=== PATIENT | male | born 1950 | race African-American/Black ===

== ENCOUNTER 2020-08-07 12:33 | Inpatient (IN) ==
--- NOTE | 2020-08-07 14:11 | Emergency Department Note ---
Impression & Plan Large bowel obstruction, Colonic mass, Hypokalemia, BEN (acute kidney injury) ED Provider Note NAME: HEATHER VANCE AGE: 70 SEX: M : 1950 ARRIVES VIA: Walk-In INFORMANT: [Patient] ED PROVIDER(S): [Simeon Diaz MD] CHIEF COMPLAINT: Constipation HISTORY OF PRESENT ILLNESS: The patient is a 70-year-old male who has had about 6 days of what he thinks may be constipation. He feels bloated. He states that he tried some fiber initially and then some MiraLAX. 2 days ago, he tried an enema. The patient really has not had a bowel movement in the last 2 to 3 days. He feels quite bloated and has some pressure in the pelvis. He has no appetite but there has been no nausea or vomiting. No fever. The pressure in the pelvis is mild in severity. The patient feels he may have become constipated from the Cipro. He was on this medication 2 weeks ago for UTI, his urinary burning has cleared. Of note, the patient was told by his family doctor's office that he does have some blood in his urine. He has an upcoming appointment next week with urology for this issue. REVIEW OF SYSTEMS: See HPI for pertinent positives and negatives. A total of ten systems were reviewed and were otherwise negative. PMHx/PSHx: See Below SOCIAL HISTORY: See Below. PHYSICAL EXAM: GENERAL: Patient is in no acute distress. HEENT: No acute trauma, normocephalic atraumatic, mucous membranes moist, no nasal congestion, no scleral icterus. NECK: No stridor, no adenopathy, no meningismus, trachea is midline. LUNGS: Clear to auscultation bilaterally, no wheeze, no rhonchi, breath sounds equal. HEART: Mildly tachycardic, subtle systolic murmur, regular rhythm. ABDOMEN: Soft, there is some abdominal distention with some tympany to percussion, no real abdominal discomfort to palpation, bowel sounds positive, no hernias, no peritonitis. EXTREMITIES: No cyanosis or edema, full range of motion of all the joints without pain or difficulty, no signs for acute trauma. NEUROLOGIC: Oriented x 3, no acute motor or sensory deficits, no focal weakness. SKIN: No rash, no jaundice, no diaphoresis. DIFFERENTIAL DIAGNOSIS: Appendicitis, infections, diverticulitis, UTI, obstruction, mesenteric ischemia, urinary retention, aortic pathology, inflammatory bowel disease, renal colic, PUD, pancreatitis, biliary pathology, hernia, volvulus, constipation, as well as other pathologies. EMERGENCY DEPARTMENT COURSE/PROCEDURES: ECG: Indication was tachycardia. ECG shows a sinus tachycardia with a rate of 103. LVH is present. There is an old inferior infarct. There is poor R wave progression. No ST elevation, no PVCs. The QTc is 445. Continuous Cardiac Monitoring: An order was placed for continuous cardiac monitoring. The monitor shows a rate of 88 with normal sinus rhythm. Critical Care Note: I have personally spent greater than 38 minutes of critical care time in the direct management of this patient. This includes bedside care, interpretation of diagnostic studies, and testing, discussion with consultants, patient, and family members, and other required patient management activities. This 38 minutes is in excess of all separately billable procedures. MEDICAL DECISION MAKING: There is a mild leukocytosis, this could be consistent with infection. There was no worrisome anemia. Platelet count slightly high at 411. Renal panel testing showed evidence for acute kidney injury with a creatinine of 3.46. Pot assium was critically low at 2.3. No worrisome liver enzyme elevation. No evidence for pancreatitis. Urinalysis showed a small amount of blood, no evidence for infection. Abdominal and pelvis CT demonstrates a large bowel obstruction from a colonic mass. There were concerns for metastasis. On exam, the patient's abdomen seemed distended. There was tympany to percussion. He was not toxic, he was not febrile. He was not in significant pain. The patient received IV saline for hydration. He was given IV potassium. I spoke to the patient about his findings. I did consult general surgery. The patient is to be hospitalized. Patient may require a diverting colostomy. There was talk about doing a colonic stent as a temporizing measure. He will require a work-up here in the hospital. He appears to have a malignancy as the cause for his bowel obstruction. I did speak to case management. The on-call hospitalist was consulted. Past Med/Surg History Medical History Chronic gout Hyperlipidemia Hypertension Family History Father , 79 Prostate cancer Mother , 72 Ovarian cancer Brother Cancer, Onset Age: 63 Social History Smoking Status: Never smoker Hx Alcohol Use: Yes Hx Substance Use: No Preferred Language: Bhutanese Communication Ability: Effective Dramatic Director Required: No Beliefs That Will Affect Care: None Current Living Situation: Spouse Current Living Situation Comment: 3 level house Feels Safe at Home: Yes Assistive Devices: None Allergies Allergies Allergy/AdvReac Type Severity Reaction Status Date / Time No Known Allergies Allergy Verified 08/07/20 16:13 [id number] Allergy Unknown Unknown Uncoded 08/07/20 16:13 Home Meds Home Medications Medication Instructions Recorded Confirmed allopurinol 100 mg PO DAILY 08/07/20 08/07/20 calcium carbonate [Tums] 0 mg PO UD PRN 08/07/20 08/07/20 simvastatin 40 mg PO DAILY 08/07/20 08/07/20 telmisartan-hydrochlorothiazid 1 tab PO CQWK 08/07/20 08/07/20 Results & Data (ED) Vital Signs Vital Signs - 24 hr 08/07/20 12:40 08/07/20 13:57 08/07/20 14:26 Temperature 36.7 C Temperature Source Oral Pulse Rate 92 H Pulse Rate [Right Finger] 105 H Respiratory Rate 18 20 Respiratory Effort / Characteristics Non-Labored Spontaneous Non-Labored Spontaneous Respiratory Depth Normal Normal Respiratory Pattern Regular Blood Pressure 124/83 Blood Pressure [Right Arm] 119/91 Blood Pressure Mean 96 Blood Pressure Mean [Right Arm] 100 Pulse Oximetry 96 100 96 Oxygen Delivery Method Room Air Room Air Room Air Sepsis Recent Fever Within 48 Hours No Sepsis New/Unexplained Change in Mental Status No Sepsis Action Taken by Nursing No Action Required 08/07/20 15:33 08/07/20 16:15 Temperature Temperature Source Pulse Rate Pulse Rate [Right Finger] 92 H 98 H Respiratory Rate 22 19 Respiratory Effort / Characteristics Respiratory Depth Respiratory Pattern Blood Pressure Blood Pressure [Right Arm] 130/84 127/76 Blood Pressure Mean Blood Pressure Mean [Right Arm] 99 93 Pulse Oximetry 99 18 L Oxygen Delivery Method Sepsis Recent Fever Within 48 Hours Sepsis New/Unexplained Change in Mental Status Sepsis Action Taken by [facility] Medications Current Medication List: was personally reviewed by me Laboratory Data Attestation: I reviewed the patient's lab results. Result diagrams: 08/07/20 14:24 08/07/20 14:24 Lab Results 08/07/20 08/07/20 08/07/20 Range/Units 14:24 14:24 14:30 WBC 11.79 H (4.8-10.8) K/uL RBC 4.86 (4.7-6.1) M/uL Hgb 13.6 L (14.0-18.0) g/dL Hct 40.5 L (42-52) % MCV 83.3 (80-100) fL MCH 28.0 (25-34) pg MCHC 33.6 (32-36) g/dL RDW Std Deviation 42.2 (36.4-46.3) fL RDW Coeff of Maximilian 14.3 (11.5-14.5) % Plt Count 411 H (130-400) K/uL MPV 8.9 (7.4-10.4) fL Immature Gran % (Auto) 0.2 % Neut % (Auto) 87.0 % Lymph % (Auto) 9.3 % [place] % (Auto) 3.3 % Eos % (Auto) 0.1 % Baso % (Auto) 0.1 % Neut # (Auto) 10.26 H (1.4-6.5) K/uL Lymph # (Auto) 1.10 L (1.2-3.4) K/uL [place] # (Auto) 0.39 (0.11-0.59) K/uL Eos # (Auto) 0.01 (0-0.5) K/uL Baso # (Auto) 0.01 (0-0.2) K/uL Immature Gran # (Auto) 0.02 (0.00-0.02) K/uL Sodium 135 L (136-145) mmol/L Potassium 2.3 L* (3.5-5.1) mmol/L Chloride 102 (98-107) mmol/L Carbon Dioxide 21 (21-32) mmol/L Anion Gap 13.0 H (3-11) BUN 44 H (7-18) mg/dl Creatinine 3.46 H (0.6-1.4) mg/dl Est Cr Clr Drug Dosing 20.1 ml/min Est GFR ( Amer) 19.8 Est GFR (Non-Af Amer) 17.0 BUN/Creatinine Ratio 12.7 (10-20) Glucose 112 H (70-99) mg/dl Calcium 10.2 H (8.5-10.1) mg/dl Total Bilirubin 0.9 (0.2-1) mg/dl AST 28 (15-37) U/L ALT 19 (12-78) U/L Alkaline Phosphatase 73 (45-117) U/L Troponin I < 0.015 (0-0.045) ng/ml Total Protein 8.2 (6.4-8.2) gm/dl Albumin 3.5 (3.4-5.0) gm/dl Globulin 4.7 H (2.5-4.0) gm/dl Albumin/Globulin Ratio 0.7 L (0.9-2) Lipase 371 (73-393) U/L Urine Color Yellow Urine Appearance Clear (Clear) Urine pH 5.0 (4.5-7.5) Ur Specific [place] 1.017 (1.000-1.030) Urine Protein 1+ H (Negative) Urine Glucose (UA) Negative (Negative) Urine Ketones Negative (Negative) Urine Blood 1+ H (Negative) Urine Nitrite Negative (Negative) Urine Bilirubin Negative (Negative) Urine Urobilinogen Negative (Negative) Ur Leukocyte Esterase Negative (Negative) Urine WBC (Auto) 1-5 (0-5) /hpf Urine RBC (Auto) 0-4 (0-4) /hpf U Hyaline Cast (Auto) 1-5 (0-5) /lpf U Epithel Cells (Auto) >30 H (0-5) /lpf Urine Bacteria (Auto) Negative (Negative) Administered Medications Discontinued Medications Sodium Chloride (Nss 1000ml) 1,000 mls @ 999 mls/hr IV .Q1H1M WALTER Stop: 08/07/20 15:15 Last Infusion: 08/07/20 15:25 Dose: 0 mls/hr Documented by: [id number] Admin: 08/07/20 14:32 Dose: 999 mls/hr Documented by: [id number] Potassium Chloride (K Blayne / Wtr) 10 meq in 100 mls @ 100 mls/hr IV Q1H WALTER Stop: 08/07/20 17:29 Last Infusion: 08/07/20 17:30 Dose: 0 mls/hr Documented by: [id number] Admin: 08/07/20 16:37 Dose: 100 mls/hr Documented by: [id number] Infusion: 08/07/20 16:37 Dose: 0 mls/hr Documented by: [id number] Admin: 08/07/20 15:32 Dose: 100 mls/hr Documented by: [id number] Piperacillin Sod/Tazobactam (Sod 3.375 gm/ Dextrose) 100 ml in 115 mls @ 230 mls/hr IV NOW STA Stop: 08/07/20 17:36 Last Infusion: 08/07/20 18:34 Dose: 0 mls/hr Documented by: [id number] Admin: 08/07/20 18:00 Dose: 230 mls/hr Documented by: [id number] Imaging Data Radiologist's Impression: ABDOMEN AND PELVIS CT WITHOUT CONTRAST CT DOSE: 445.97 mGy.cm HISTORY: Abdominal distention. Possible obstruction. TECHNIQUE: Multiaxial CT images of the abdomen and pelvis were performed without contrast. A dose lowering technique was utilized adhering to the principles of ALARA. COMPARISON STUDY: None. FINDINGS: A single prominent distal thoracic periaortic lymph node measuring 7 mm. Trace right pleural effusion. 5 mm nodule within the right middle lobe on image 34. No pneumoperitoneum. No pneumatosis. No suspicious lytic or blastic osseous lesions. There are 2 well-defined hypodense lesions within the right hepatic lobe measuring 2.6 and 2.1 cm. These are concerning for metastatic d isease. The unenhanced spleen, pancreas, and adrenal glands unremarkable. Multiple bilateral renal hypodense lesions which are incompletely characterized on this noncontrast study but favor cysts. No hydronephrosis. There are few left peripelvic renal cysts. No retroperitoneal lymphadenopathy. Small bowel loops are normal and course and caliber. Distended gas and stool-filled colon with the cecum measuring up to 10 cm in diameter. Focal transition point within the mid sigmoid colon where there is associated irregular bowel wall thickening. This is highly suspicious for a colonic mass and results in the large bowel obstruction. The area of irregular bowel wall thickening measures 7.5 cm in length and is best seen on image 381. There is ill-defined soft tissue focus along the undersurface of the sigmoid colon which abuts the bladder dome. This measures 2.7 cm and is best seen image 401. There is also an additional exophytic focus of soft tissue along the superior aspect of the mid sigmoid colon measuring 2.8 cm best seen on 363. This could represent extension of tumor and/or lymphadeno esthela. Trace fluid within the abdomen or pelvis. IMPRESSION: 1. Severe large bowel obstruction secondary to a focal transition point within the mid sigmoid colon which likely represents a colonic mass. There are are areas of soft tissue tumor/lymphadenopathy along the superior and inferior borders of the suspected mass as described above. The inferior soft tissue abnormality abuts the bladder dome. Urgent surgical consultation recommended. 2. There are 2 ill-defined hypodense lesions within the right hepatic dome which are highly suspicious for metastatic disease. 3. A 5 mm indeterminate pulmonary nodule within the right middle lobe. 4. Trace right pleural effusion and trace ascites. Blood Pressure Blood Pressure Findings: Elevated blood pressure Blood Pressure Disposition: further management by hospitalist Discharge Plan Visit Data Chief Complaint: Constipation Stated Complaint: CONSTIPATION ED Provider: Simeon Diaz Discharge Problem: Large bowel obstruction, Colonic mass, Hypokalemia, BEN (acute kidney injury) Patient Disposition: Admitted As Inpatient Condition: Fair Discharge Instructions Interventions: ED Discharge Assessment Last Done: 08/07/20 17:39
[2020-08-07] MEDS ORDERED: SODIUM CHLORIDE 0.9% 1000ML 1,000 ML IV SCH (14:15)
[2020-08-07 14:43] LABS: Basophils # (auto) 0.01 K/uL (0-0.2); Basophils % (auto) 0.1 %; Eosinophils # (auto) 0.01 K/uL (0-0.5); Eosinophils % (auto) 0.1 %; Hematocrit (blood only) 40.5 % (42-52); Hemoglobin 13.6 g/dL (14.0-18.0); Immature Granulocytes # (auto) 0.02 K/uL (0.00-0.02); Immature Granulocytes % (auto) 0.2 %; Lymphocytes % (auto) 9.3 %; Mean Corpuscular Hgb Conc 33.6 g/dL (32-36); Mean Corpuscular Volume 83.3 fL (80-100); Mean Platelet Volume 8.9 fL (7.4-10.4); Monocytes # (auto) 0.39 K/uL (0.11-0.59); Monocytes % (auto) 3.3 %; Neutrophils # (auto) 10.26 K/uL (1.4-6.5); Platelet Count 411 K/uL (130-400); RDW Coefficient of Variation 14.3 % (11.5-14.5); RDW Standard Deviation 42.2 fL (36.4-46.3); Red Blood Count 4.86 M/uL (4.7-6.1); White Blood Count 11.79 K/uL (4.8-10.8)
[2020-08-07 14:50] LABS: Appearance Urine Clear (Clear); Bacteria Urine Automated Negative (Negative); Bilirubin Urine Negative (Negative); Blood Urine 1+ (Negative); Color Urine Yellow; Epithelial Cell Urine Auto >30 /lpf (0-5); Glucose Urine UA Negative (Negative); Ketones Urine Negative (Negative); Leukocyte Esterase Urine Negative (Negative); Nitrite Urine Negative (Negative); Protein Urine 1+ (Negative); RBC Urine Automated 0-4 /hpf (0-4); Specific Gravity Urine 1.017 (1.000-1.030); Urobilinogen Urine Negative (Negative)
[2020-08-07 15:17] LABS: Alanine Aminotransferase 19 U/L (12-78); Albumin Globulin Ratio 0.7 (0.9-2); Albumin Level 3.5 gm/dl (3.4-5.0); Alkaline Phosphatase 73 U/L (45-117); Aspartate Aminotransferase 28 U/L (15-37); BUN Creatinine Ratio 12.7 (10-20); Bilirubin,Total 0.9 mg/dl (0.2-1); Blood Urea Nitrogen 44 mg/dl (7-18); Calcium 10.2 mg/dl (8.5-10.1); Carbon Dioxide 21 mmol/L (21-32); Chloride 102 mmol/L (98-107); Creatinine Clr Calc Pharmacy 20.1 ml/min; Est GFR (African American) 19.8; Globulin 4.7 gm/dl (2.5-4.0); Glucose 112 mg/dl (70-99); Lipase 371 U/L (73-393); Potassium 2.3 mmol/L (3.5-5.1); Sodium 135 mmol/L (136-145); Total Protein 8.2 gm/dl (6.4-8.2); Troponin I < 0.015 ng/ml (0-0.045)
--- NOTE | 2020-08-07 15:27 | CT Scan Report ---
ABDOMEN AND PELVIS CT WITHOUT CONTRAST CT DOSE: 445.97 mGy.cm HISTORY: Abdominal distention. Possible obstruction. TECHNIQUE: Multiaxial CT images of the abdomen and pelvis were performed without contrast. A dose lo wering technique was utilized adhering to the principles of ALARA. COMPARISON STUDY: None. FINDINGS: A single prominent distal thoracic periaortic lymph node measuring 7 mm. Trace right pleura l effusion. 5 mm nodule within the right middle lobe on image 34. No pneumoperitoneum. No pneumatosis . No suspicious lytic or blastic osseous lesions. There are 2 well-defined hypodense lesions within t he right hepatic lobe measuring 2.6 and 2.1 cm. These are concerning for metastatic disease. The unen hanced spleen, pancreas, and adrenal glands unremarkable. Multiple bilateral renal hypodense lesions which are incompletely characterized on this noncontrast study but favor cysts. No hydronephrosis. Th ere are few left peripelvic renal cysts. No retroperitoneal lymphadenopathy. Small bowel loops are no rmal and course and caliber. Distended gas and stool-filled colon with the cecum measuring up to 10 c m in diameter. Focal transition point within the mid sigmoid colon where there is associated irregula r bowel wall thickening. This is highly suspicious for a colonic mass and results in the large bowel obstruction. The area of irregular bowel wall thickening measures 7.5 cm in length and is best seen o n image 381. There is ill-defined soft tissue focus along the undersurface of the sigmoid colon which abuts the bladder dome. This measures 2.7 cm and is best seen image 401. There is also an additional exophytic focus of soft tissue along the superior aspect of the mid sigmoid colon measuring 2.8 cm b est seen on 363. This could represent extension of tumor and/or lymphadenopathy. Trace fluid within t he abdomen or pelvis. IMPRESSION: 1. Severe large bowel obstruction secondary to a focal transition point within the mid sigmoid colon which likely represents a colonic mass. There are are areas of soft tissue tumor/lymphadenopathy elio g the superior and inferior borders of the suspected mass as described above. The inferior soft tissu e abnormality abuts the bladder dome. Urgent surgical consultation recommended. 2. There are 2 ill-defined hypodense lesions within the right hepatic dome which are highly suspiciou s for metastatic disease. 3. A 5 mm indeterminate pulmonary nodule within the right middle lobe. 4. Trace right pleural effusion and trace ascites. ACT 112: Negative or not required by law. Electronically signed by: Viktor Lucia M.D. 08/07/2020 3:25 PM
[2020-08-07] MEDS: POTASSIUM CHLORIDE / WTR 10 MEQ/100 ML PLCT IV SCH ×3 (15:32→20:31)
--- NOTE | 2020-08-07 16:44 | Gastrointestinal Consultation ---
Date of Consultation August 07, 2020 Assessment & Plan (1) Colonic mass: Colonic mass that is concerning for a malignant tumor with subsequent obstruction. Discussing with my partner for potential placement of an urgent colonic stent for decompression. General surgery is also discussing, but patient desires an attempt at stent prior. History of Present Illness History of Present Illness This is a 70-year-old gentleman who we were asked to see by general surgery for a sigmoid colon mass. He is a very pleasant gentleman over the last 2 to 3 weeks has had increasing obstipation and constipation with development of abdominal distention. He began to have abdominal pain that is mild in nature associated with this that necessitated 2-3 enemas at home the last several days with mild to minimal stool development. He has some mild nausea as well as the development of hiccups and due to the chronicity of the symptoms he presents here today to the emergency room. On evaluation he was found to have a very large sigmoid mass that minimally invades the bladder as well as likely 2 lesions in the right lobe of his liver that are concerning for metatasis. He has upstream evidence of obstruction with stool and air in the colon. He denies any rectal bleeding and/or recent weight loss. We been asked to evaluate for a colonic stent is a temporizing or palliative measure. Allergies Allergy/AdvReac Type Severity Reaction Status Date / Time No Known Allergies Allergy Verified 08/07/20 16:13 [id number] Allergy Unknown Unknown Uncoded 08/07/20 16:13 Home Medications Home Medications Medication Instructions Recorded Confirmed Type allopurinol 100 mg PO DAILY 08/07/20 08/07/20 History calcium carbonate [Tums] 0 mg PO UD PRN 08/07/20 08/07/20 History simvastatin 40 mg PO DAILY 08/07/20 08/07/20 History telmisartan-hydrochlorothiazid 1 tab PO CQWK 08/07/20 08/07/20 History Patient History Social History Smoking Status: Never smoker Preferred Language: Croatian Feels Safe at Home: Yes Review of Systems Review of Systems: All systems reviewed & are unremarkable except as noted in HPI & below Physical Exam Physical Exam: abdomen distended, tympanic, soft, CN II-XII intact no edema Constitutional: WD/WN, vitals as above Cardiovascular: RRR, no murmur, no edema Results & Data ([facility]) Vital Signs (Past 12 Hours) Vital Signs Temp Pulse Pulse Resp BP BP Pulse Ox 08/07/20 16:15 98 H 19 127/76 18 L 08/07/20 15:33 92 H 22 130/84 99 08/07/20 14:26 96 08/07/20 13:57 105 H 20 119/91 100 08/07/20 12:40 36.7 C 92 H 18 124/83 96
[2020-08-07] MEDS ORDERED: PIPERACILL/TAZOBAC CONSULT ACTIVE PRN (16:53)
[2020-08-07] MEDS ORDERED: PIPERACILLIN/TAZOBACTAM 3.375 GM in DEXTROSE 5% 100 ML/100 ML BAG IV STA (17:07)
--- NOTE | 2020-08-07 17:09 | History & Physical Report ---
Date of Service August 07, 2020 Assessment & Plan (1) Large bowel obstruction: N.p.o. NG tube to low intermittent suction IV fluids - we will restart once he has received 40 meq IV KCl No degree of peritonitis at present but high risk of translocation and possible perforation therefore will start Zosyn 3.375 mg IV every 8 hourly (2) Colonic mass: CEA. Appreciate collaboration between surgery and gastroenterology. Plan for colonoscopy with colonic stent placement for decompression. (3) BEN (acute kidney injury): No postobstructive cause on CT. UA relatively unremarkable with 1+ blood and 1+ protein not suggestive of ATN Suspect mostly prerenal with dehydration. 1 L NSS bolus given in ER. Currently receiving potassium replacement. Hold telmisartan/hydrochlorothiazide. Olivares catheter placed for close monitoring of urine output. Rehydrate with IV fluids as above (4) Hypokalemia: Potassium 2.3. 40 meq KCl IV given in ER. Repeat BMP after this to assess for further replacement. (5) Hypertension: Hold telmisartan/hydrochlorothiazide due to BEN (6) Chronic gout: Continue allopurinol 100 mg p.o. daily once no longer n.p.o. (7) Hyperlipidemia: Continue simvastatin 40 mg p.o. daily once no longer n.p.o. (8) DVT prophylaxis: SCDs. Chemical prophylaxis deferred pending gastroenterology/surgical interventions as above. Admission and Anticipated Discharge Date Admission Date: August 07, 2020 History of Present Illness Chief Complaint: Abdominal pain, distension. Primary Care Provider: Zaheer Cortez MD Esa Crain is a 70-year-old generally healthy male who presents to the ER with abdominal pain, distention, no bowel movement for 2 days. He has been having 2-3 weeks of constipation and was treated for a UTI/dysuria on 08/03 as he has a history of recurrent UTIs by his PCP. He felt his worsening of constipation may have been due to the antibiotics (ciprofloxacin). However he became progressively more distended and with more abdominal pain, nausea but no vomiting therefore called his PCP office today and was advised to come to the ER. He denies any melena or bright red blood in stool. No weight loss. Abdominal pain, mild, generalized, ache, no radiation, associated decreased appetite. In the ER CT showed showed large bowel obstruction from likely colonic mass. He reports a positive history of colon cancer in his brother. Coloscopy 10 years ago - normal at that time. GI and surgery consulted. Discussed with Dr Schwartz. Plan for attempted colonic stent initially. In addition the patient was noted to be in BEN with hypokalemia. Allergies Allergy/AdvReac Type Severity Reaction Status Date / Time No Known Allergies Allergy Verified 08/07/20 16:13 [id number] Allergy Unknown Unknown Uncoded 08/07/20 16:13 Home Medications Home Medications Medication Instructions Recorded Confirmed Type allopurinol 100 mg PO DAILY 08/07/20 08/07/20 History calcium carbonate [Tums] 0 mg PO UD PRN 08/07/20 08/07/20 History simvastatin 40 mg PO DAILY 08/07/20 08/07/20 History telmisartan-hydrochlorothiazid 1 tab PO CQWK 08/07/20 08/07/20 History Past Med/Surg History Medical History Chronic gout Hyperlipidemia Hypertension Family History Father , 79 Prostate cancer Mother , 72 Ovarian cancer Brother Cancer, Onset Age: 63 Social History Smoking Status: Never smoker Hx Alcohol Use: Yes Hx Substance Use: No Preferred Language: Mauritanian Communication Ability: Effective 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 Beliefs That Will Affect Care: None Current Living Situation: Spouse Current Living Situation Comment: 3 level house Feels Safe at Home: Yes Assistive Devices: None Review of Systems Review of Systems: All systems reviewed & are unremarkable except as noted in HPI & below Physical Exam Constitutional: well developed and well nourished; no acute distress Eyes: + anicteric sclerae; normal pupil size ENMT: external ear and nose normal, oropharynx normal Neck: trachea midline, no thyromegaly Respiratory: normal respiratory effort, lungs clear to auscultation Cardiovascular: RRR, no murmur, no edema Gastrointestinal (Abdomen): Inspection/Auscultation: + abdomen distended and + hypoactive bowel sounds Percussion/Palpation: + abdomen tender and + abdomen rigid; no guarding Musculoskeletal: no cyanosis or clubbing, extremities motor strength 5/5 Skin: no rashes, warm and dry Neurologic: moves all extremities and awake; no focal motor deficits and not confused Psychiatric: A+Ox3, euthymic affect Genitourinary: no CVA tenderness Results & Data Results & Data ([facility]) Vital Signs (Past 12 Hours) Vital Signs Temp Pulse Pulse Resp BP BP Pulse Ox 08/07/20 16:15 98 H 19 127/76 18 L 08/07/20 15:33 92 H 22 130/84 99 08/07/20 14:26 96 08/07/20 13:57 105 H 20 119/91 100 08/07/20 12:40 36.7 C 92 H 18 124/83 96 Diagnostic Findings ABDOMEN AND PELVIS CT WITHOUT CONTRAST IMPRESSION: 1. Severe large bowel obstruction secondary to a focal transition point within the mid sigmoid colon which likely represents a colonic mass. There are are areas of soft tissue tumor/lymphadenopathy along the superior and inferior borders of the suspected mass as described above. The inferior soft tissue abnormality abuts the bladder dome. Urgent surgical consultation recommended. 2. There are 2 ill-defined hypodense lesions within the right hepatic dome which are highly suspicious for metastatic disease. 3. A 5 mm indeterminate pulmonary nodule within the right middle lobe. 4. Trace right pleural effusion and trace ascites. XR chest 1V portable IMPRESSION: 1. Mild elevation of the right hemidiaphragm 2. Suspected trace right pleural effusion 3. No evidence of focal pulmonary consolidation ECG Indication: abdominal pain Rate (beats per minute): 92 Rhythm: sinus with SA Findings: + PVC Comparison ECG Date: from (Aug 07, 2020) Change: the following changes noted (PVCs now present) Code Status & VTE Plan Code Status Full VTE Prophylaxis Plan VTE Prophylaxis will be ordered: Yes PG Care Time/CCT Total # of Minutes Spent Total Time Spent with Patient: Total time spent is greater than 50% in coordination of care (as documented) at patient's floor/unit and/or counseling patient: Coding Level of Care Code 13596 Initial Inpt Care Lvl 3 Diagnoses Large bowel obstruction K56.609 Colonic mass K63.89 BEN (acute kidney injury) N17.9 Hypokalemia E87.6 Hypertension I10 Chronic gout M1A.[id number] Hyperlipidemia E78.5 DVT prophylaxis Z29.9
--- NOTE | 2020-08-07 17:34 | XRay Report ---
XR chest 1V portable CLINICAL HISTORY: Preoperative chest COMPARISON STUDY: No previous studies for comparison. FINDINGS: There is mild elevation of the right hemidiaphragm. The heart is the upper limits of normal in size. There is no failure. There is no focal pulmonary consolidation. There is a suspected trace right pleural effusion.[There are minor left basilar atelectatic changes. IMPRESSION: 1. Mild elevation of the right hemidiaphragm 2. Suspected trace right pleural effusion 3. No evidence of focal pulmonary consolidation ACT 112: Negative or not required by law. Electronically signed by: Aneesh Pacheco M.D. 08/07/2020 5:32 PM
--- NOTE | 2020-08-07 17:49 | Surgery Consultation ---
Date of Consultation August 07, 2020 Assessment & Plan (1) Colon obstruction: Patient with sigmoid mass obstructing the colon Evidence of significant disease which is likely adenocarcinoma with metastatic deposits in the liver Patient would likely need neoadjuvant treatment It is very unlikely he would have a resection initially for this problem The GI team is currently evaluating him for possible stent He may need colonic diversion with a stoma to decompress his colon And then proceed with treatment as indicated History of Present Illness History of Present Illness 70-year-old male presented to the emergency room with abdominal distention and bloating some mild pain Found on CAT scan with a sigmoid obstruction with dilated cecum and transverse colon descending colon Likely a 7 to 8 cm tumor involving the sigmoid colon extension outside the colon and possible bladder involvement He shows lymphadenopathy in the pelvis-also has evidence of relatively large liver metastases GI team is currently evaluating him for possible stent placement Allergies Allergy/AdvReac Type Severity Reaction Status Date / Time No Known Allergies Allergy Verified 08/07/20 16:13 [id number] Allergy Unknown Unknown Uncoded 08/07/20 16:13 Home Medications Home Medications Medication Instructions Recorded Confirmed Type allopurinol 100 mg PO DAILY 08/07/20 08/07/20 History calcium carbonate [Tums] 0 mg PO UD PRN 08/07/20 08/07/20 History simvastatin 40 mg PO DAILY 08/07/20 08/07/20 History telmisartan-hydrochlorothiazid 1 tab PO CQWK 08/07/20 08/07/20 History Patient History Medical History (Updated 08/07/20 @ 17:47 by Colby Schwartz MD, FACS) Chronic gout Hyperlipidemia Hypertension Family History (Updated 08/07/20 @ 17:13 by Renaldo Redmond MD) Father , 79 Prostate cancer Mother , 72 Ovarian cancer Brother Cancer, Onset Age: 63 Social History Smoking Status: Never smoker Preferred Language: Kyrgyz Feels Safe at Home: Yes Review of Systems Review of Systems: All systems reviewed & are unremarkable except as noted in HPI & below Physical Exam Physical Exam: Patient is in his ER bed he is awake and alert he is responsive he is in no distress his abdomen is very distended It is tympanitic he has no peritoneal signs, he has decreased bowel sounds Constitutional: no acute distress Eyes: + anicteric sclerae Respiratory: normal respiratory effort; no respiratory distress Cardiovascular: Rate/Rhythm: regular rate Musculoskeletal: Head/Neck/Chest: head atraumatic Skin: no rashes, warm and dry Neurologic: awake Psychiatric: Orientation: alert Results & Data ([facility]) Vital Signs (Past 12 Hours) Vital Signs Temp Pulse Pulse Resp BP BP Pulse Ox 08/07/20 17:39 89 19 144/86 H 98 08/07/20 16:15 98 H 19 127/76 18 L 08/07/20 15:33 92 H 22 130/84 99 08/07/20 14:26 96 08/07/20 13:57 105 H 20 119/91 100 08/07/20 12:40 36.7 C 92 H 18 124/83 96 I did review his CAT scan PG Care Time/CCT Total # of Minutes Spent Total Time Spent with Patient: Total time spent is greater than 50% in coordination of care (as documented) at patient's floor/unit and/or counseling patient: Coding Level of Care Code 07400 Initial Inpt Care Lvl 3 Diagnoses Colon obstruction K56.609
--- NOTE | 2020-08-07 18:28 | XRay Report ---
XR chest 1V portable CLINICAL HISTORY: ng placement COMPARISON STUDY: 08/07/2020 FINDINGS: A single view of the chest and abdomen centered on the hemidiaphragms are provided for inte rpretation. There is gaseous distention of the visualized bowel. There is a nasogastric tube with its tip at the esophagogastric junction.[ IMPRESSION: 1. Nasogastric tube with its tip at the esophagogastric junction 2. Gaseous distention of the bowel ACT 112: Negative or not required by law. Electronically signed by: Aneesh Pacheco M.D. 08/07/2020 6:27 PM
--- NOTE | 2020-08-07 19:31 | History & Physical Bridge Note ---
Date of Service August 07, 2020 History & Physical Bridge Note I have examined the patient, reviewed the History & Physical and in the interval since the performance of the History & Physical I have noted the following changes of clinical significance: no changes noted Plan for colonoscopy with colonic stent placement for decompression.
[2020-08-07] MEDS ORDERED: IOVERSOL 50ml IV ONE (19:35)
[2020-08-07] MEDS ORDERED: fentaNYL citrate 100 MCG/2 ML VIAL ONE (20:46)
[2020-08-07] MEDS ORDERED: SUCCINYLCHOLINE 100MG/5ML SYR IV ONE (20:46)
[2020-08-07] MEDS ORDERED: LIDOCAINE HCL 2% 2 ML VIAL/AMP(20MG/ML) INFIL ONE (20:46)
[2020-08-07] MEDS ORDERED: PROPOFOL IV EMULSION 10 MG/ML 20 ML VIAL IV ONE (20:46)
--- NOTE | 2020-08-07 20:58 | Anesthesiology Consultation ---
Date of Service August 07, 2020 Assessment & Plan (1) Encounter for pre-operative examination: Chart Review Chart Review: Acceptable Risk for Surgery and Patient NOT seen in Pre Admission Testing Consults Requested none ASA [id number] Proposed Anesthesia Anesthesia Type: General Risk / Benefits Reviewed With: PT / POA / Parent / Guardian, Accepts Plan and Informed Consent Obtained History Surgery Operation Date: 08/07/20 09:20 Proposed Procedures p Colonoscopy Dr Delvalle - Danielle Delvalle MD Height/Weight Height: 5 ft 9 in Weight: 81.5 kg Allergies Allergy/AdvReac Type Severity Reaction Status Date / Time No Known Allergies Allergy Verified 08/07/20 16:13 [id number] Allergy Unknown Unknown Uncoded 08/07/20 16:13 Medications Home Medications Medication Instructions Recorded Confirmed Last Taken allopurinol 100 mg PO DAILY 08/07/20 08/07/20 08/07/20 07:30 calcium carbonate [Tums] 0 mg PO UD PRN 08/07/20 08/07/20 08/06/20 simvastatin 40 mg PO DAILY 08/07/20 08/07/20 08/07/20 07:30 telmisartan-hydrochlorothiazid 1 tab PO CQWK 08/07/20 08/07/20 08/07/20 07:30 NPO Date Last Intake of Fluids: 08/07/20 Time Last Intake of Fluids: 07:30 Date Last Intake of Solids: 08/06/20 Time Last Intake of Solids: 15:00 Past Medical History Medical History Chronic gout Hyperlipidemia Hypertension Exercise / Class Metabolic Activity II 4-5 Yardwork/Stairs/Walk up hill Negative for chest pain or shortness of breath. Past Family History Family History Father , 79 Prostate cancer Mother , 72 Ovarian cancer Brother Cancer, Onset Age: 63 Past Anesthesia History No Hx of Anesthesia Complications History of PONV No Hx of PONV Social History Smoking Status: Never smoker Do You Dip or Chew Tobacco: No Hx Alcohol Use: Yes alcohol intake frequency: 0-2 drinks per day Hx Substance Use: No Review of Systems Positive for nausea, known severe bowel obstruction Physical Exam Vital Signs Last Vital Signs Temp 36.8 C 10/02/20 20:15 Pulse 104 H 08/07/20 20:37 Resp 20 08/07/20 20:37 BP 148/96 H 08/07/20 20:37 Pulse Ox 99 08/07/20 20:37 Constitutional not obese distended abdomen ENMT Mouth: no TMJ abnormality and oral opening not small Thyromental Distance: > or= 3.5 Finger Breadths Mallampati Class: III Mouth / Teeth: 1. no teeth (partial) Neck normal visual inspection; neck extension not limited Respiratory normal respiratory effort Auscultation: lungs clear to auscultation bilaterally Cardiovascular Rate/Rhythm: regular rate and regular rhythm Heart Sounds: no murmur Neurologic moves all extremities Psychiatric Orientation: alert and oriented x 3 Testing Laboratory Results 08/07/20 14:24 08/07/20 14:24 Urine Color Yellow 08/07/20 14:30 Urine Appearance Clear (Clear) 08/07/20 14:30 Urine pH 5.0 (4.5-7.5) 08/07/20 14:30 Ur Specific Greene 1.017 (1.000-1.030) 08/07/20 14:30 Urine Protein 1+ (Negative) H 08/07/20 14:30 Urine Glucose (UA) Negative (Negative) 08/07/20 14:30 Urine Ketones Negative (Negative) 08/07/20 14:30 Urine Nitrite Negative (Negative) 08/07/20 14:30 Ur Leukocyte Esterase Negative (Negative) 08/07/20 14:30 Urine WBC (Auto) 1-5 /hpf (0-5) 08/07/20 14:30 Urine RBC (Auto) 0-4 /hpf (0-4) 08/07/20 14:30 U Hyaline Cast (Auto) 1-5 /lpf (0-5) 08/07/20 14:30 U Epithel Cells (Auto) >30 /lpf (0-5) H 08/07/20 14:30 Urine Bacteria (Auto) Negative (Negative) 08/07/20 14:30 Electrocardiogram Date: 08/07/20 Findings: + NSR @ (92) marked sinus arryhthmia, occasional PVC, minimal voltage criteria for LVH, cannot rule out anterior infarct, age undetermined
[2020-08-07] MEDS ORDERED: SODIUM CHLORIDE 0.9% 1000ML 1,000 ML IV ONE (21:10)
[2020-08-07] MEDS ORDERED: ACETAMINOPHEN 1,000 MG/100 ML VIAL IV PRN (21:14)
[2020-08-07] MEDS ORDERED: ONDANSETRON INJ 2 MG/ML 2 ML VIAL ONE (21:53)
[2020-08-07] MEDS ORDERED: ePHEDrine sulfate 50 MG/ML SYR ONE (21:53)
--- NOTE | 2020-08-07 22:35 | Operative Report ---
Post Operative Report Pre & Post Diagnosis Operation Date: 08/07/20 09:20 Pre-Op Diagnosis: Colonic Mass; Large Bowel Obstruction Post-Op Diagnosis: Colonic Mass; Large Bowel Obstruction I identified the patient and participated in the time-out.: Yes Procedure Operation Date: 08/07/20 09:20 Actual Procedures p Colonoscopy with Colonic Stent Placement(Not Applicable) - Danielle Delvalle MD Surgeon Danielle Delvalle MD Executive Communications Manager None Estimated Blood Loss 0 Findings See Below (Obstructive sigmoid colon mass, stent placed successfully ) Specimens Mass biopsy Description of Procedure Colonoscopy with stent placement I attest to the content of the Intraoperative Record and any orders documented therein. Any exceptions are noted below.
--- NOTE | 2020-08-07 23:01 | GI REPORT ---
Patient Name: Esa Crain Procedure Date: 08/07/2020 8:02 PM Date of : 1950 Admit Type: Inpatient Age: 70 Gender: Male Attending MD: Danielle Delvalle MD Procedure: Colonoscopy Providers: Danielle Delvalle MD Referring MD: Zaheer Cortez, Renaldo Redmond Md, Colby Schwartz Indications: Therapeutic procedure, For therapy of colonic obstruction Medicines: General Anesthesia Complications: No immediate complications. Estimated Blood Loss: Estimated blood loss: none. Procedure: Pre-Anesthesia Assessment: - Prior to the procedure, a History and Physical was performed, and patient medications, allergies and sensitivities were reviewed. The patient's tolerance of previous anesthesia was reviewed. - The risks and benefits of the procedure and the sedation options and risks were discussed with the patient. All questions were answered and informed consent was obtained. - Patient identification and proposed procedure were verified prior to the procedure by the physician and the nurse. The procedure was verified in the procedure room. - Pre-procedure physical examination revealed no contraindications to sedation. After I obtained informed consent, the scope was passed under direct vision. Throughout the procedure, the patient's blood pressure, pulse, and oxygen saturations were monitored continuously. The Endoscope was introduced through the anus and advanced to the sigmoid colon to examine a mass. This was the intended extent. The colonoscopy was performed without difficulty. The patient tolerated the procedure well. The quality of the bowel preparation was fair. Findings: The perianal and digital rectal examinations were normal. A frond-like/villous, infiltrative and polypoid completely obstructing large mass was found in the sigmoid colon at 20 cm proximal to the anus. The mass was circumferential (involving 100% of the lumen circumference). No bleeding was present. Biopsies were taken with a cold forceps for histology. Verification of patient identification for the specimen was done by the physician and nurse using the patient's name and date. Area was tattooed with an injection of 2 mL of Spot (carbon black). A 0.035 inch Jagwire was passed to the descending colon and biliary extraction balloon catheter passed over the wire, contrast injected and the stenosis measured around 6 cm in length. This was stented with a 25 mm x 10 cm Cook colonic stent. A TTS dilator was passed through the scope. Dilation of the lumen of the stent with a 10-11-12 mm colonic balloon dilator was performed under fluoroscopic guidance. I personally interpreted the fluoroscopy images. Impression: - Likely malignant completely obstructing tumor in the sigmoid colon at 20 cm proximal to the anus. Biopsied. Tattooed. 10 cm colonic stent placed and dilated after placement with successful decompression. Recommendation: - Return patient to [facility] for [facility] care. - NPO today. - Clear liquid diet tomorrow and remove NG tube if clinically improving. Usually it takes 48 hrs for the stent to achieve adequate expansion. - Miralax 1 capful (17 grams) in 8 ounces of water PO BID. - Follow post stent special diet, avoid Fresh vegetables and fruit (e.g., celery, carrots, corn, lettuce, pineapple), Foods with seeds (e.g., oranges, watermelon, tomatoes), Fruit or vegetable skin (e.g., potato skins), Nuts (e.g., peanuts, pecans, almonds, popcorn, etc.), Tough meat (e.g., steak). Danielle Delvalle MD 08/07/2020 11:01:32 PM This report has been signed electronically. Note Initiated On: 08/07/2020 8:02 PM Number of Addenda: 0 I attest to the content of the Intraoperative Record and orders documented therein, exceptions below {[id number]}
--- NOTE | 2020-08-07 23:17 | Electrocardiogram Report ---
Test Reason : Blood Pressure : / mmHG Vent. Rate : 103 BPM Atrial Rate : 103 BPM P-R Int : 164 ms QRS Dur : 088 ms QT Int : 340 ms P-R-T Axes : 041 -09 001 degrees QTc Int : 445 ms Sinus tachycardia Minimal voltage criteria for LVH, may be normal variant Cannot rule out Anterior infarct , age undetermined Possible Inferior infarct Abnormal ECG When compared with ECG of 02-OCT-2002 10:42, ST no longer elevated in Anterior leads Confirmed by Nick Alexandre ([id number]) on 08/07/2020 11:17:22 PM Referred By: Zaheer Cortez Confirmed By:Nick Alexandre
[2020-08-07] MEDS ORDERED: ATROPINE SULFATE 0.1 MG/ML 10ML SYR IV PRN (23:29)
[2020-08-07] MEDS ORDERED: ePHEDrine sulfate 50 MG/ML AMP IV PRN (23:29)
--- NOTE | 2020-08-07 23:30 | Anesthesiology Progress Note ---
Date of Service August 07, 2020 Anesthesia Post Procedure Vital Signs Vital Signs: Temp Pulse Pulse Pulse Resp BP BP 08/07/20 23:24 96 H 16 124/72 08/07/20 23:14 96 H 17 119/80 08/07/20 23:09 91 H 16 135/79 08/07/20 23:04 36.4 C L 90 20 133/74 08/07/20 21:06 101 H 20 144/93 H 08/07/20 20:57 102 H 20 139/84 08/07/20 20:37 104 H 20 148/96 H 08/07/20 20:15 36.8 C 101 H 20 164/90 H 08/07/20 20:07 36.8 C 107 H 21 08/07/20 19:04 37.2 C 55 L 16 08/07/20 17:39 89 19 144/86 H 08/07/20 16:15 98 H 19 08/07/20 15:33 92 H 22 08/07/20 14:26 08/07/20 13:57 105 H 20 08/07/20 12:40 36.7 C 92 H 18 124/83 BP Pulse Ox 08/07/20 23:24 96 08/07/20 23:14 99 08/07/20 23:09 99 08/07/20 23:04 100 08/07/20 21:06 98 08/07/20 20:57 98 08/07/20 20:37 99 08/07/20 20:15 96 08/07/20 20:07 138/88 96 08/07/20 19:04 95 08/07/20 17:39 98 08/07/20 16:15 127/76 18 L 08/07/20 15:33 130/84 99 08/07/20 14:26 96 08/07/20 13:57 119/91 100 08/07/20 12:40 96 Pain Intensity Abdomen: Pain Intensity: 3 Transfer of Care Handoff Completed per policy Notes Mental Status: alert / awake / arousable and participated in evaluation Patient Amnestic to Procedure: Yes Nausea / Vomiting: adequately controlled Pain: adequately controlled Airway Patency, RR, SpO2: stable & adequate BP & HR: stable & adequate Hydration State: stable & adequate Anesthetic Complications: no major complications apparent and Pt Satisfied with anesthetic care
[2020-08-08] MEDS: POTASSIUM CHLORIDE / WTR 10 MEQ/100 ML PLCT IV SCH (00:04)
[2020-08-08] MEDS ORDERED: ONDANSETRON INJ 2 MG/ML 2 ML VIAL IV PRN (01:01)
[2020-08-08] MEDS: PIPERACILLIN/TAZOBACTAM 3.375 GM in DEXTROSE 5% 100 ML IV SCH ×3 (01:35→17:19)
[2020-08-08] MEDS: POTASSIUM CHLORIDE 40 MEQ in SODIUM CHLORIDE 0.9% 1000ML 1,000 ML IV SCH ×2 (01:54→08:12)
[2020-08-08 03:17] LABS: Basophils # (auto) 0.01 K/uL (0-0.2); Basophils % (auto) 0.1 %; Hemoglobin 11.5 g/dL (14.0-18.0); Immature Granulocytes # (auto) 0.03 K/uL (0.00-0.02); Immature Granulocytes % (auto) 0.2 %; Lymphocytes # (auto) 1.21 K/uL (1.2-3.4); Lymphocytes % (auto) 9.8 %; Mean Corpuscular Hemoglobin 27.4 pg (25-34); Mean Corpuscular Hgb Conc 32.9 g/dL (32-36); Mean Corpuscular Volume 83.5 fL (80-100); Mean Platelet Volume 8.7 fL (7.4-10.4); Monocytes # (auto) 0.33 K/uL (0.11-0.59); Monocytes % (auto) 2.7 %; Neutrophils # (auto) 10.82 K/uL (1.4-6.5); Neutrophils % (auto) 87.2 %; Platelet Count 324 K/uL (130-400); RDW Coefficient of Variation 14.2 % (11.5-14.5); Red Blood Count 4.19 M/uL (4.7-6.1)
[2020-08-08 04:07] LABS: BUN Creatinine Ratio 13.9 (10-20); Calcium 8.6 mg/dl (8.5-10.1); Creatinine Clr Calc Pharmacy 22.3 ml/min; Est GFR (African American) 22.4; Est GFR (Non-African American) 19.3; Phosphorus 3.2 mg/dl (2.5-4.9)
--- NOTE | 2020-08-08 06:38 | Surgery Progress Note ---
Date of Service August 08, 2020 Assessment & Plan (1) Large bowel obstruction: Patient underwent stent placement of the sigmoid mass which does appear to be adenocarcinoma He has significant localized disease and liver metastases He will require oncology valuation and likely neoadjuvant treatment He should also have colorectal surgery follow-up at tertiary care center at some point Hopefully he will be able to decompress with the stent not require diversion Admission and Anticipated Discharge Date Admission Date: August 07, 2020 Subjective Patient awake alert in his bed no distress He said he feels much better, he is voiding I do not think he has had difficult bowel movements Physical Exam Physical Exam: Appears to be less distended than in the ER Constitutional: no acute distress Eyes: + anicteric sclerae Respiratory: normal respiratory effort; no respiratory distress Cardiovascular: Rate/Rhythm: regular rate Musculoskeletal: Head/Neck/Chest: head atraumatic Skin: no rashes, warm and dry Neurologic: awake Psychiatric: Orientation: alert Results & Data ([facility]) Vital Signs (Past 12 Hours) Vital Signs Temp Pulse Pulse Resp BP BP Pulse Ox 08/08/20 03:00 36.4 C L 79 18 141/95 H 98 08/07/20 23:53 36.4 C L 99 H 16 120/73 98 08/07/20 23:35 36.5 C 100 H 17 131/74 97 08/07/20 23:24 96 H 16 124/72 96 08/07/20 23:14 96 H 17 119/80 99 08/07/20 23:09 91 H 16 135/79 99 08/07/20 23:04 36.4 C L 90 20 133/74 100 08/07/20 21:06 101 H 20 144/93 H 98 08/07/20 20:57 102 H 20 139/84 98 08/07/20 20:37 104 H 20 148/96 H 99 08/07/20 20:15 36.8 C 101 H 20 164/90 H 96 08/07/20 20:07 36.8 C 107 H 21 138/88 96 08/07/20 19:04 37.2 C 55 L 16 95 PG Care Time/CCT Total # of Minutes Spent Total Time Spent with Patient: Total time spent is greater than 50% in coordination of care (as documented) at patient's floor/unit and/or counseling patient: Coding Level of Care Code 61647 Inpt Consult Level 3 Diagnoses Large bowel obstruction K56.605
[2020-08-08 07:52] LABS: BUN Creatinine Ratio 13.8 (10-20); Calcium 8.9 mg/dl (8.5-10.1); Creatinine Clr Calc Pharmacy 21.8 ml/min; Est GFR (African American) 21.7; Est GFR (Non-African American) 18.7; Potassium 3.1 mmol/L (3.5-5.1)
--- NOTE | 2020-08-08 08:55 | Fluoroscopy Report ---
FL pelvis 1-2V CLINICAL HISTORY: COLONOSCOPY WITH FLUORO COMPARISON STUDY: Abdomen and pelvis CT 08/07/2020. FLUOROSCOPY TIME: 5 minutes and 38 seconds. FINDINGS: 15 fluoroscopic spot images of the abdomen and pelvis were submitted. An endoscope was plac ed within the rectum with a guidewire extending into the descending colon. Contrast was injected. Thi s is followed by placement of a colonic stent at the mid sigmoid colon. The stent appears in good pos ition. The final image demonstrates a nasogastric tube looped within the distal esophagus. IMPRESSION: 1. Fluoroscopy provided for sigmoid stent placement which appears in good position. 2. A nasogastric tube is seen on the final image and is looped within the distal esophagus. This shou ld be repositioned. ACT 112: Negative or not required by law. Electronically signed by: Viktor Lucia M.D. 08/08/2020 8:53 AM
[2020-08-08] MEDS: POTASSIUM CHLORIDE 40 MEQ in D5W AND 1/2NSS 1,000 ML/1,000 ML BAG IV SCH ×2 (10:11→17:19)
--- NOTE | 2020-08-08 10:45 | Electrocardiogram Report ---
Test Reason : Blood Pressure : / mmHG Vent. Rate : 092 BPM Atrial Rate : 092 BPM P-R Int : 156 ms QRS Dur : 090 ms QT Int : 392 ms P-R-T Axes : 029 -14 011 degrees QTc Int : 484 ms Sinus rhythm with marked sinus arrhythmia with occasional Premature ventricular complexes fusion beats Minimal voltage criteria for LVH, may be normal variant Abnormal ECG When compared with ECG of 07-AUG-2020 14:15, Premature ventricular complexes are now Present Confirmed by Herrera Yoo ([id number]) on 08/08/2020 10:44:45 AM Referred By: Zaheer Cortez Confirmed By:Jose Alfredo Yoo
[2020-08-08] MEDS ORDERED: POTASSIUM CHLORIDE 20 MEQ TABCR PO STA (11:23)
--- NOTE | 2020-08-08 12:03 | Nephrology Consultation ---
Date of Consultation August 08, 2020 Assessment & Plan (1) BEN (acute kidney injury): Acute kidney injury in the setting large bowel obstruction for almost a week. On admission creatinine was of 3.5 with slightly improved to 3.2 this morning, unknown baseline creatinine but no known history of chronic kidney disease. No postrenal obstruction. Urinalysis with trace proteinuria but no significant hematuria pyuria. Found to have large sigmoid mass concerning for malignancy with possible liver metastatic disease. Had emergency colonoscopy decompression and colonic stent placement. Acute kidney injury most likely prerenal with bowel obstruction and poor p.o. intake. Clinically improving, had bowel movement this morning, started on clear liquid diet. --continue to monitor renal function electrolyte with daily renal panel, expect renal function to continue to improve --replace potassium as needed and okay to continue on IV fluid Until patient able to maintain adequate p.o. intake. --monitor intake and output --avoid nephrotoxic medications Will follow Thank you for allowing me to participate in your patient's care. It was a pleasure to see Esa. (2) Hypokalemia: (3) Large bowel obstruction: (4) Colonic mass: History of Present Illness Reason for Consultation: Acute kidney injury and hypokalemia. Attending Physician: Renaldo Redmond MD History of Present Illness Esa Crain is a 70 old man with past medical history significant for hypertension and and gout presented to the hospital with constipation for few days and a found to have colonic obstruction. Nephrology consult was requested to manage acute kidney injury and hypokalemia EMR records are reviewed in detail during patient's visit. Esa presented to hospital yesterday with progressive abdominal distention and constipation for few days. On admission CT abdomen pelvis without contrast showed colonic obstruction with large sigmoid mass and possible metastatic lesion to the liver. He had emergency colonoscopy decompression and stenting. Since then he has been clinically improving, had bowel movement this morning. He was just started on clear liquid diet from lunch. No known history of chronic kidney disease, unclear baseline creatinine. On admission creatinine was 3.5 with hypokalemia, potassium was 2.9. He was started on IV fluid and potassium supplement, kidney function slightly improved to creatinine 3.2 this morning, potassium improved to 3.1. Other electrolyte acceptable. Has been voiding normally. Blood pressure has been well controlled. Urinalysis with trace proteinuria otherwise unremarkable. No postrenal obstruction on CT scan. Denies any known family history of chronic kidney disease or end-stage renal disease. Family history significant for multiple cancers including Mom with h/o ovarian cancer. Never smoker. Overall feeling better this morning except discomfort with NG tube. Allergies Allergy/AdvReac Type Severity Reaction Status Date / Time No Known Allergies Allergy Verified 08/07/20 16:13 [id number] Allergy Unknown Unknown Uncoded 08/07/20 16:13 Home Medications Home Medications Medication Instructions Recorded Confirmed Type allopurinol 100 mg PO DAILY 08/07/20 08/07/20 History calcium carbonate [Tums] 0 mg PO UD PRN 08/07/20 08/07/20 History simvastatin 40 mg PO DAILY 08/07/20 08/07/20 History telmisartan-hydrochlorothiazid 1 tab PO CQWK 08/07/20 08/07/20 History Patient History Medical History Chronic gout Hyperlipidemia Hypertension Family History Father , 79 Prostate cancer Mother , 72 Ovarian cancer Brother Cancer, Onset Age: 63 Social History Smoking Status: Never smoker Hx Alcohol Use: Yes Hx Substance Use: No Preferred Language: Estonian Communication Ability: Effective Canary Breeder Required: No Beliefs That Will Affect Care: None Current Living Situation: Spouse Current Living Situation Comment: 3 level house Feels Safe at Home: Yes Assistive Devices: None Review of Systems Review of Systems: All systems reviewed & are unremarkable except as noted in HPI & below Physical Exam Constitutional: WD/WN, vitals as above well developed and well nourished; no acute distress NG tube in place. Eyes: PERRL, conjunctivae normal, anicteric sclerae ENMT: external ear and nose normal, oropharynx normal Ears: no hearing impairment Neck: trachea midline Respiratory: normal respiratory effort, lungs clear to auscultation no cough Auscultation: no crackles, no rales and no wheezes Cardiovascular: RRR, no murmur, no edema Gastrointestinal (Abdomen): normal bowel sounds, soft, nontender, no hepatosplenomegaly Percussion/Palpation: abdomen nontender, no guarding and abdomen not rigid Musculoskeletal: Extremities: extremities normal to inspection Gait: normal gait Skin: no rashes, warm and dry Neurologic: moves all extremities and awake Psychiatric: A+Ox3, euthymic affect Results & Data ([facility]) Vital Signs (Past 12 Hours) Vital Signs Temp Pulse Pulse Resp BP Pulse Ox 08/08/20 08:19 37.1 C 94 H 18 132/82 97 08/08/20 08:00 90 08/08/20 03:00 36.4 C L 79 18 141/95 H 98 PG Care Time/CCT Total # of Minutes Spent Total Time Spent with Patient: Total time spent is greater than 50% in coordination of care (as documented) at patient's floor/unit and/or counseling patient: Coding Level of Care Code 84780 Office/OBS Consult Lvl 5 Diagnoses BEN (acute kidney injury) N17.9 Hypokalemia E87.6 Large bowel obstruction K56.609 Colonic mass K63.89
--- NOTE | 2020-08-08 13:49 | Progress Notes ---
DATE: 08/08/2020 HISTORY OF PRESENT ILLNESS: The patient underwent a colonic stent placement for an obstructing tumor in the sigmoid colon. He feels well. He denies abdominal pain and he had a bowel movement this morning. PHYSICAL EXAMINATION: VITAL SIGNS: Most recent vitals show blood pressure 128/80, pulse of 100, temperature is 37.3 centigrade. ABDOMEN: Benign with good bowel sounds, nontender with no rebound. IMPRESSION AND PLAN: Stable, status post colonic stent placement. RECOMMENDATION: Followup with oncology and colorectal surgery.
[2020-08-08] MEDS ORDERED: ACETAMINOPHEN 325 MG TAB PO PRN (15:33)
--- NOTE | 2020-08-08 15:38 | Hospitalist Progress Note ---
Date of Service August 08, 2020 Assessment & Plan (1) Large bowel obstruction: s/p colonic stent insertion 08/07 NG tube remove. Clear liquid diet as per GI recommendations. Continue IV fluids as below. Continue Zosyn for 48 hours s/p colonic stent (2) Colonic mass: CEA 92 Await pathology to consult oncology. (3) BEN (acute kidney injury): No postobstructive cause on CT. UA relatively unremarkable with 1+ blood and 1+ protein not suggestive of ATN Suspect mostly prerenal with dehydration although unclear baseline as Cr 1.9 in 2016 therefore possible more CKD Hold telmisartan/hydrochlorothiazide. D5 0.5NSS + 40 meq KCl 150 ml/hr Consult nephrology given lack of improvement in Cr (4) Hypokalemia: K 3.1. Continue to replace in IV/PO (5) Hypertension: Hold telmisartan/hydrochlorothiazide due to BEN. BP accetable. (6) Chronic gout: Continue allopurinol 100 mg p.o. daily (7) Hyperlipidemia: Continue simvastatin 40 mg p.o. daily (8) DVT prophylaxis: SCDs. Heparin 5000 units SQ Q8H. Admission and Anticipated Discharge Date Admission Date: August 07, 2020 Subjective Feeling much improved today. Had a bowel movement this morning. Feels like he wants to start eating. Decreased abdominal distention. No nausea or vomiting, NG tube in place. No fevers or chills. Discussed waiting for pathology to come back with regards to consulting oncology. Review of Systems Review of Systems: All systems reviewed & are unremarkable except as noted in HPI & below Physical Exam Constitutional: well developed and well nourished; no acute distress ENMT: external ear and nose normal, oropharynx normal Respiratory: normal respiratory effort, lungs clear to auscultation Cardiovascular: RRR, no murmur, no edema Gastrointestinal (Abdomen): Inspection/Auscultation: + abdomen distended (reduced) and + hypoactive bowel sounds Percussion/Palpation: abdomen soft; abdomen nontender, no guarding and abdomen not rigid Musculoskeletal: no cyanosis or clubbing, extremities motor strength 5/5 Skin: no rashes, warm and dry Neurologic: moves all extremities and awake; no focal motor deficits and not confused Psychiatric: A+Ox3, euthymic affect Results & Data Results & Data ([facility]) Vital Signs (Past 12 Hours) Vital Signs Temp Pulse Pulse Resp BP Pulse Ox 08/08/20 12:08 37.3 C 109 H 18 128/80 94 08/08/20 08:19 37.1 C 94 H 18 132/82 97 08/08/20 08:00 90 PG Care Time/CCT Total # of Minutes Spent Total Time Spent with Patient: Total time spent is greater than 50% in coordination of care (as documented) at patient's floor/unit and/or counseling patient: Coding Level of Care Code 63213 Subseq Hosp Care Lvl 3 Diagnoses Large bowel obstruction K56.609 Colonic mass K63.89 BEN (acute kidney injury) N17.9 Hypokalemia E87.6 Hypertension I10 Chronic gout M1A.9XX0 Hyperlipidemia E78.5 DVT prophylaxis Z29.9
[2020-08-08] MEDS: allopurinoL 100 MG TAB PO SCH (17:18)
[2020-08-09] MEDS: POTASSIUM CHLORIDE 40 MEQ in D5W AND 1/2NSS 1,000 ML/1,000 ML BAG IV SCH ×2 (00:03→06:14)
[2020-08-09] MEDS: PIPERACILLIN/TAZOBACTAM 3.375 GM in DEXTROSE 5% 100 ML IV SCH ×3 (01:42→18:25)
[2020-08-09 06:58] LABS: Basophils # (auto) 0.01 K/uL (0-0.2); Basophils % (auto) 0.1 %; Eosinophils # (auto) 0.09 K/uL (0-0.5); Eosinophils % (auto) 0.9 %; Hematocrit (blood only) 33.9 % (42-52); Hemoglobin 11.2 g/dL (14.0-18.0); Immature Granulocytes # (auto) 0.01 K/uL (0.00-0.02); Immature Granulocytes % (auto) 0.1 %; Lymphocytes # (auto) 0.67 K/uL (1.2-3.4); Lymphocytes % (auto) 6.5 %; Mean Corpuscular Hemoglobin 28.2 pg (25-34); Mean Corpuscular Volume 85.4 fL (80-100); Mean Platelet Volume 8.4 fL (7.4-10.4); Monocytes # (auto) 1.41 K/uL (0.11-0.59); Monocytes % (auto) 13.7 %; Neutrophils # (auto) 8.07 K/uL (1.4-6.5); Neutrophils % (auto) 78.7 %; Platelet Count 309 K/uL (130-400); RDW Coefficient of Variation 14.7 % (11.5-14.5); RDW Standard Deviation 45.2 fL (36.4-46.3); Red Blood Count 3.97 M/uL (4.7-6.1); White Blood Count 10.26 K/uL (4.8-10.8)
[2020-08-09] MEDS ORDERED: HEPARIN SOD 5,000 UNIT/0.5 ML VIAL SQ ONE (07:15)
[2020-08-09 07:28] LABS: Albumin Level 2.5 gm/dl (3.4-5.0); BUN Creatinine Ratio 12.4 (10-20); Calcium 8.2 mg/dl (8.5-10.1); Est GFR (African American) 26.9; Est GFR (Non-African American) 23.2; Potassium 3.3 mmol/L (3.5-5.1)
[2020-08-09 07:38] LABS: Albumin Globulin Ratio 0.7 (0.9-2); Globulin 3.8 gm/dl (2.5-4.0); Total Protein 6.3 gm/dl (6.4-8.2)
--- NOTE | 2020-08-09 08:12 | Surgery Progress Note ---
Date of Service August 09, 2020 Assessment & Plan (1) Large bowel obstruction: Patient feeling improvement in his symptoms s/p colonic stent placement He is tolerating clear liquids and having + bowel function Will defer timing of removal of NGT and further diet advancement to GI/medicine Will need onc consult once biopsy results return along with referral to colorectal surgery at tertiary center Admission and Anticipated Discharge Date Admission Date: August 07, 2020 Subjective Patient feels well this AM. He has been up and about moving. He denies any abdominal pain, nausea/vomiting. Has been passing BM's since stent placement. Tolerating liquid diet. Physical Exam Physical Exam: awake/alert Respiratory: normal respiratory effort Gastrointestinal (Abdomen): Inspection/Auscultation: + abdomen distended (improved since admission) Percussion/Palpation: abdomen soft; abdomen nontender Results & Data ([facility]) Vital Signs (Past 12 Hours) Vital Signs Temp Pulse Pulse Resp BP Pulse Ox 08/09/20 07:22 100 H 08/09/20 03:22 36.9 C 107 H 18 110/73 96 08/08/20 22:32 36.9 C 106 H 18 141/89 H 97 PG Care Time/CCT Total # of Minutes Spent Total Time Spent with Patient: Total time spent is greater than 50% in coordination of care (as documented) at patient's floor/unit and/or counseling patient: Coding Level of Care Code 83340 Subseq Hosp Care Lvl 1 Diagnoses Large bowel obstruction K56.609
[2020-08-09] MEDS: allopurinoL 100 MG TAB PO SCH (08:15)
[2020-08-09] MEDS: HEPARIN SOD 5,000 UNIT/0.5 ML VIAL SQ SCH ×2 (08:58→20:44)
--- NOTE | 2020-08-09 12:06 | Nephrology Progress Note ---
Date of Service August 09, 2020 Assessment & Plan (1) BEN (acute kidney injury): Acute kidney injury in the setting large bowel obstruction for almost a week. On admission creatinine was of 3.5 with slightly improved to 3.2 this morning, unknown baseline creatinine but no known history of chronic kidney disease. No postrenal obstruction. Urinalysis with trace proteinuria but no significant hematuria pyuria. Found to have large sigmoid mass concerning for malignancy with possible liver metastatic disease. Had emergency colonoscopy decompression and colonic stent placement. Acute kidney injury most likely prerenal with bowel obstruction and poor p.o. intake. Clinically improving, renal function continues to improve, creatinine down to 2.7. --continue to monitor renal function electrolyte with daily renal panel, expect renal function to continue to improve --replace potassium as needed --Encourage adequate hydration, monitor intake and output --avoid nephrotoxic medications Will follow (2) Hypokalemia: (3) Large bowel obstruction: (4) Colonic mass: Admission and Anticipated Discharge Date Admission Date: August 07, 2020 Kel See was seen and examined in his room this morning with his partner at bedside. Overall he is feeling much better, diet was advanced to full liquid has been tolerating well, has been having bowel movement. Renal function continues to improve, creatinine down to 2.7, potassium 3.3.prescontrolled. Voiding normally. Review of Systems Review of Systems: All systems reviewed & are unremarkable except as noted in HPI & below Physical Exam Constitutional: well developed and well nourished; no acute distress Respiratory: normal respiratory effort, lungs clear to auscultation Cardiovascular: RRR, no murmur, no edema Gastrointestinal (Abdomen): Inspection/Auscultation: + abdomen distended and normal bowel sounds Neurologic: moves all extremities and awake; not confused Psychiatric: A+Ox3, euthymic affect Results & Data ([facility]) Vital Signs (Past 12 Hours) Vital Signs Temp Pulse Pulse Pulse Resp BP BP 08/09/20 11:59 37.4 C 108 H 17 120/76 08/09/20 07:52 37.0 C 102 H 20 134/85 08/09/20 07:22 100 H 08/09/20 03:22 36.9 C 107 H 18 110/73 Pulse Ox 08/09/20 11:59 97 08/09/20 07:52 98 08/09/20 07:22 08/09/20 03:22 96 PG Care Time/CCT Total # of Minutes Spent Total Time Spent with Patient: Total time spent is greater than 50% in coordination of care (as documented) at patient's floor/unit and/or counseling patient: Coding Level of Care Code 62745 Subseq Hosp Care Lvl 3 Diagnoses BEN (acute kidney injury) N17.9 Hypokalemia E87.6 Large bowel obstruction K56.609 Colonic mass K63.89
[2020-08-09] MEDS ORDERED: HEPARIN SOD 5,000 UNIT/0.5 ML VIAL SQ SCH (14:00)
--- NOTE | 2020-08-09 15:11 | Hospitalist Progress Note ---
Date of Service August 09, 2020 Assessment & Plan (1) Large bowel obstruction: S/p colonic stent insertion 08/07. - NG tube removed today. Clear liquid diet as per GI recommendations with advance to full liquids this afternoon. - Stop IV fluids. - Continue Zosyn for 48 hours s/p colonic stent -> Last dose tonight. (2) Colonic mass: CEA 92. - Await pathology to consult oncology. (3) BEN (acute kidney injury): No post-obstructive cause on CT. UA relatively unremarkable with 1+ blood and 1+ protein not suggestive of ATN. Suspect mostly prerenal with dehydration although unclear baseline as Cr 1.9 in 2016 therefore possible more CKD. - Hold telmisartan/hydrochlorothiazide. - Consulted nephrology given lack of improvement in Cr -> Down to 2.7 on 08/09. (4) Hypertension: BP is 120/75 today. - Hold telmisartan/hydrochlorothiazide due to BEN. (5) Chronic gout: - Continue allopurinol 100 mg p.o. daily (6) Hyperlipidemia: - Hold simvastatin for now (7) DVT prophylaxis: Heparin 5000 units SQ Q12H Admission and Anticipated Discharge Date Admission Date: August 07, 2020 Subjective Doing well today. No major concerns. He is having BMs, though not passing much gas. Reports no fevers/chills, chest pain, shortness of breath, abdominal pain, nausea, or vomiting. Physical Exam Constitutional: WD/WN, vitals as above Eyes: EOM intact bilaterally; no conjunctival abnormality ENMT: external ear and nose normal, oropharynx normal Neck: trachea midline, no thyromegaly normal visual inspection Respiratory: normal respiratory effort, lungs clear to auscultation no respiratory distress Cardiovascular: RRR, no murmur, no edema Gastrointestinal (Abdomen): Inspection/Auscultation: abdomen normal to inspection; abdomen not distended Musculoskeletal: no cyanosis or clubbing, extremities motor strength 5/5 Skin: no rashes, warm and dry Neurologic: moves all extremities and awake Psychiatric: Orientation: alert, oriented to person and cooperative Results & Data Results & Data ([facility]) Vital Signs (Past 12 Hours) Vital Signs Temp Pulse Pulse Pulse Resp BP BP 08/09/20 14:56 120 H 08/09/20 11:59 37.4 C 108 H 17 120/76 08/09/20 07:52 37.0 C 102 H 20 134/85 08/09/20 07:22 100 H 08/09/20 03:22 36.9 C 107 H 18 110/73 Pulse Ox 08/09/20 14:56 08/09/20 11:59 97 08/09/20 07:52 98 08/09/20 07:22 08/09/20 03:22 96 PG Care Time/CCT Total # of Minutes Spent Total Time Spent with Patient: Total time spent is greater than 50% in coordination of care (as documented) at patient's floor/unit and/or counseling patient: Coding Level of Care Code 20106 Subseq Hosp Care Lvl 2 Diagnoses Large bowel obstruction K56.609 Colonic mass K63.89 BEN (acute kidney injury) N17.9 Hypertension I10 Chronic gout M1A.9XX0 Hyperlipidemia E78.5 DVT prophylaxis Z29.9
[2020-08-10 07:11] LABS: Basophils # (auto) 0.01 K/uL (0-0.2); Basophils % (auto) 0.1 %; Eosinophils # (auto) 0.14 K/uL (0-0.5); Eosinophils % (auto) 1.6 %; Hematocrit (blood only) 33.1 % (42-52); Hemoglobin 11.1 g/dL (14.0-18.0); Immature Granulocytes # (auto) 0.02 K/uL (0.00-0.02); Immature Granulocytes % (auto) 0.2 %; Lymphocytes # (auto) 0.84 K/uL (1.2-3.4); Lymphocytes % (auto) 9.9 %; Mean Corpuscular Hemoglobin 28.8 pg (25-34); Mean Corpuscular Hgb Conc 33.5 g/dL (32-36); Mean Corpuscular Volume 85.8 fL (80-100); Mean Platelet Volume 8.5 fL (7.4-10.4); Monocytes # (auto) 1.11 K/uL (0.11-0.59); Neutrophils # (auto) 6.39 K/uL (1.4-6.5); Neutrophils % (auto) 75.2 %; Platelet Count 292 K/uL (130-400); RDW Coefficient of Variation 14.9 % (11.5-14.5); RDW Standard Deviation 46.4 fL (36.4-46.3); Red Blood Count 3.86 M/uL (4.7-6.1); White Blood Count 8.51 K/uL (4.8-10.8)
[2020-08-10 07:49] LABS: Albumin Globulin Ratio 0.6 (0.9-2); Albumin Level 2.4 gm/dl (3.4-5.0); BUN Creatinine Ratio 11.5 (10-20); Bilirubin,Total 0.8 mg/dl (0.2-1); Calcium 8.9 mg/dl (8.5-10.1); Creatinine Clr Calc Pharmacy 29.2 ml/min; Est GFR (African American) 30.9; Est GFR (Non-African American) 26.7; Globulin 4.1 gm/dl (2.5-4.0); Potassium 3.1 mmol/L (3.5-5.1); Total Protein 6.5 gm/dl (6.4-8.2)
[2020-08-10] MEDS: HEPARIN SOD 5,000 UNIT/0.5 ML VIAL SQ SCH (08:34)
--- NOTE | 2020-08-10 08:54 | Surgery Progress Note ---
Date of Service August 10, 2020 Assessment & Plan (1) Large bowel obstruction: Patient has been doing well s/p colonic stent placement Diet has been advanced to low fiber which he is tolerating He is having + bowel function Denies any abdominal pain/nausea/vomiting Will need set up with oncology and colorectal surgeon as outpatient Admission and Anticipated Discharge Date Admission Date: August 07, 2020 Subjective Patient states he is feeling well. Tolerating a low fiber diet. Denies abdominal pain, nausea/vomiting. Continues to pass gas and BM's. He is eager for discharge. Physical Exam Physical Exam: awake/alert Gastrointestinal (Abdomen): Percussion/Palpation: abdomen soft; abdomen nontender Results & Data ([facility]) Vital Signs (Past 12 Hours) Vital Signs Temp Pulse Pulse Pulse Resp BP BP 08/10/20 08:07 36.7 C 159 H 19 145/99 H 08/10/20 04:19 125/75 08/10/20 00:56 37.4 C 107 H 18 131/87 08/10/20 00:00 136 H Pulse Ox 08/10/20 08:07 97 08/10/20 04:19 96 08/10/20 00:56 95 08/10/20 00:00 PG Care Time/CCT Total # of Minutes Spent Total Time Spent with Patient: Total time spent is greater than 50% in coordination of care (as documented) at patient's floor/unit and/or counseling patient: Coding Level of Care Code 22283 Subseq Hosp Care Lvl 1 Diagnoses Large bowel obstruction K56.609
[2020-08-10] MEDS: allopurinoL 100 MG TAB PO SCH (09:45)
[2020-08-10] MEDS ORDERED: NORMOSOL-R 500 ML IV ONE (10:17)
--- NOTE | 2020-08-10 10:34 | Nephrology Progress Note ---
Date of Service August 10, 2020 Assessment & Plan (1) BEN (acute kidney injury): Acute kidney injury in the setting large bowel obstruction for almost a week. On admission creatinine was of 3.5 with slightly improved to 3.2 this morning, unknown baseline creatinine but no known history of chronic kidney disease. No postrenal obstruction. Urinalysis with trace proteinuria but no significant hematuria pyuria. Found to have large sigmoid mass concerning for malignancy with possible liver metastatic disease. Had emergency colonoscopy decompression and colonic stent placement. Slow recovery from recent acute kidney injury, creatinine down to 2.4. Voiding normally. --Encourage adequate hydration, monitor intake and output --avoid nephrotoxic medications --If discharge anticipated, will need close outpatient lab monitoring in next 2- 3 days and then weekly Will follow (2) Hypokalemia: (3) Large bowel obstruction: (4) Colonic mass: Admission and Anticipated Discharge Date Admission Date: August 07, 2020 Kel See was seen and examined in his room this morning. Overall he is feeling much better, tolerating regular diet. Voiding normally, has been having bowel movement. Kidney function continues to improve, creatinine down to 2.4. Review of Systems Review of Systems: All systems reviewed & are unremarkable except as noted in HPI & below Physical Exam Constitutional: well developed and well nourished; no acute distress Respiratory: normal respiratory effort, lungs clear to auscultation Cardiovascular: RRR, no murmur, no edema Neurologic: moves all extremities and awake; not confused Psychiatric: A+Ox3, euthymic affect Results & Data ([facility]) Vital Signs (Past 12 Hours) Vital Signs Temp Pulse Pulse Pulse Resp BP BP 08/10/20 08:07 36.7 C 159 H 19 145/99 H 08/10/20 04:19 125/75 08/10/20 00:56 37.4 C 107 H 18 131/87 08/10/20 00:00 136 H Pulse Ox 08/10/20 08:07 97 08/10/20 04:19 96 08/10/20 00:56 95 08/10/20 00:00 PG Care Time/CCT Total # of Minutes Spent Total Time Spent with Patient: Total time spent is greater than 50% in coordination of care (as documented) at patient's floor/unit and/or counseling patient: Coding Level of Care Code 27319 Subseq Hosp Care Lvl 3 Diagnoses BEN (acute kidney injury) N17.9 Hypokalemia E87.6 Large bowel obstruction K56.609 Colonic mass K63.89
[2020-08-10] MEDS ORDERED: OPTIRAY 320 125ml IV ONE (11:47)
--- NOTE | 2020-08-10 11:49 | Ultrasound Report ---
US venous doppler LE BI CLINICAL HISTORY: Leg swelling COMPARISON STUDY: No previous studies for comparison. FINDINGS: Real-time and color flow Doppler imaging were performed. Flow was seen within the femoral, popliteal and calf veins with no intraluminal thrombus demonstrated. The saphenous vein is patent. No te is made of slow venous flow. IMPRESSION: No evidence of lower extremity DVT. ACT 112: Negative or not required by law. Electronically signed by: Aneesh Pacheco M.D. 08/10/2020 11:48 AM
--- NOTE | 2020-08-10 11:59 | CT Scan Report ---
CT ANGIOGRAM OF THE CHEST CLINICAL HISTORY: Shortness of breath. Possible pulmonary embolism. COMPARISON STUDY: Chest x-ray dated 08/07/2020 TECHNIQUE: Following the IV administration of 120 mL of Optiray-320, CT angiogram of the thorax was p erformed from the thoracic inlet to the lung bases utilizing the pulmonary embolus protocol. Images a re reviewed in the axial, sagittal, and coronal planes. IV contrast was administered without complica tion. MIP imaging was performed. A dose lowering technique was utilized adhering to the principles o f ALARA. CT DOSE: 363.20 mGy.cm FINDINGS: The visualized portions the upper abdomen reveal gaseous distention of the colon. There is elevation right hemidiaphragm. There are 2 indeterminate hepatic masses the largest of which measures 23 mm. No pathologically enlarged axillary mediastinal or hilar lymph nodes were visualized. There was no evidence of thoracic aortic dilatation. There were no pulmonary artery filling defects to indicate acute pulmonary embolism. There is a small right pleural effusion and trace left pleural effusion There are dependent airspace opacities, likely atelectatic. There is calcified right upper lobe granu jacqui. There is a noncalcified 4 mm solid right middle lobe pulmonary nodule. IMPRESSION: 1. No evidence of acute pulmonary embolism 2. Low lung volumes with elevation right hemidiaphragm and basilar opacities, likely atelectatic 2. Small right pleural effusion and trace left pleural effusion 3. Gaseous distention of bowel 4. Hepatic masses suspicious for metastatic disease 5. 4 mm solid right middle lobe pulmonary nodule ACT 112: Negative or not required by law. Electronically signed by: Aneesh Pacheco M.D. 08/10/2020 11:58 AM
--- NOTE | 2020-08-10 14:08 | Discharge Summary ---
Date of Service August 10, 2020 Admission HPI Per Admitting Provider sEa Crain is a 70-year-old generally healthy male who presents to the ER with abdominal pain, distention, no bowel movement for 2 days. He has been having 2-3 weeks of constipation and was treated for a UTI/dysuria on 08/03 as he has a history of recurrent UTIs by his PCP. He felt his worsening of constipation may have been due to the antibiotics (ciprofloxacin). However he became progressively more distended and with more abdominal pain, nausea but no vomiting therefore called his PCP office today and was advised to come to the ER. He denies any melena or bright red blood in stool. No weight loss. Abdominal pain, mild, generalized, ache, no radiation, associated decreased appetite. In the ER CT showed showed large bowel obstruction from likely colonic mass. He reports a positive history of colon cancer in his brother. Coloscopy 10 years ago - normal at that time. GI and surgery consulted. Discussed with Dr Schwartz. Plan for attempted colonic stent initially. In addition the patient was noted to be in BEN with hypokalemia. Principal Diagnosis Large bowel obstruction due to colonic mass; concern for colorectal cancer Discharge Exam Constitutional WD/WN, vitals as above Eyes EOM intact bilaterally; no conjunctival abnormality ENMT external ear and nose normal, oropharynx normal Neck trachea midline, no thyromegaly normal visual inspection Respiratory normal respiratory effort, lungs clear to auscultation no respiratory distress Cardiovascular RRR, no murmur, no edema Gastrointestinal (Abdomen) Inspection/Auscultation: abdomen normal to inspection; abdomen not distended Musculoskeletal no cyanosis or clubbing, extremities motor strength 5/5 Skin no rashes, warm and dry Neurologic moves all extremities and awake Psychiatric Orientation: alert, oriented to person and cooperative Discharge Data Allergies Allergy/AdvReac Type Severity Reaction Status Date / Time No Known Allergies Allergy Verified 08/07/20 16:13 [id number] Allergy Unknown Unknown Uncoded 08/07/20 16:13 Consultations 08/07/20 16:04 ED Decision to Admit Stat 08/07/20 21:13 Consult Gastroenterology Stat Consult General Surgery Stat 08/08/20 08:52 Consult Nephrology Routine Procedures Performed Operation Date: 08/07/20 09:20 Actual Procedures p Colonoscopy with Colonic Stent Placement, NG Tube Exchange(Not Applicable) - Danielle Delvalle MD Ordered Studies 08/07/20 FL fluoroscopy <1hr Routine FL pelvis 1-2V Routine 08/07/20 14:06 CT abd pelvis wo con Stat 08/10/20 10:17 CT angio chest PE protocol Urgent 08/10/20 10:18 US venous doppler LE BI Urgent Hospital Course (1) Large bowel obstruction: S/p colonic stent insertion 08/[address] Delvalle. - NG tube removed on 08/09. Clear liquid diet as per GI recommendations with advance to full liquids. Tolerated well. On normal diet by 08/10. - Continued Zosyn for 48 hours s/p colonic stent per GI recs. - Given dietary instructions per GI regarding food allowed with the colonic stent. - Follow up with GI as outpatient. Will follow up with colorectal surgery with Dr. Jerman Guerrero. - Will follow up with Dr. Flip Swan with [facility] oncology. (2) Tachycardia: Patient with tachycardia in the 100-110 range most of his admission, with periods in the 80s and up to the 130s. He was asymptomatic from this. EKGs and telemetry only show sinus tachycardia. - VTE ruled out on 08/10 with negative CTA chest and negative Dopplers. - Infection unlikely given no focal findings of infection (UA normal, CTA chest without opacity, no abdominal pain after stent, no other localizing symptoms) - Presumed to be due to high metabolic state from his likely cancer. (3) Colonic mass: CEA 92. CT chest on 08/10 showed hepatic lesions which was discussed with the patient. - Await pathology to consult oncology. (4) BEN (acute kidney injury): No post-obstructive cause on CT. UA relatively unremarkable with 1+ blood and 1+ protein not suggestive of ATN. Suspect mostly prerenal with dehydration although unclear baseline as Cr 1.9 in 2016 therefore possible more CKD. - Held telmisartan/hydrochlorothiazide, but can restart on discharge given high blood pressure and normalizing kidney function. - Consulted nephrology given lack of improvement in Cr -> Down to 2.4 on 08/10. (5) Hypertension: BP is 160/80 today. - Held telmisartan/hydrochlorothiazide due to BEN, but restart on discharge. (6) Chronic gout: - Continue allopurinol 100 mg p.o. daily (7) Hyperlipidemia: - Continue simvastatin (8) DVT prophylaxis: Heparin 5000 units SQ Q12H Total Time Total Time Spent Total Time Spent (In Minutes): 35 Discharge Plan Discharge Items Patient Disposition: Home - Self-Care Reason For Visit: LARGE BOWEL OBSTRUCTION COLONIC MASS Discharge Diagnosis: Large bowel obstruction; concern for colon cancer Condition on Discharge: Good Activity: Resume your previous activity Non-emergency contact: Primary Care Provider, Surgeon and Oncologist Call non-emergency contact if: your symptoms worsen Follow-up/Referrals: Zaheer Cortez MD [Primary Care Provider] - 08/13/20 4:00 pm Flip Swna MD [Surgeon] - (Dr. Flip Swan's office will be calling you for an appointment. ) Diet: Low Fiber Addtl Attending Provider Instructions: Mr. Crain, You were admitted with a large bowel obstruction caused by a mass in the large intestine (or colon). We are worried this is colon cancer, but the final pathology results are still pending. Dr. Delvalle was able to place a stent in your large intestine which help relieve the obstruction. You will need to follow a special diet for now: Avoid - Fresh vegetables and fruit (eg celery, carrots, corn, lettuce, pineapple) - Foods with seeds (eg oranges, watermelon, tomatoes, popcorn) - Fruit or vegetable skins (eg potato skins) - Nuts (eg peanuts, pecans, almonds) - Tough meat (eg steak) In the meantime, we are sending you to a few specialists. First is Dr. Flip Swan who is an oncologist with [facility]. His number is [phone]. Second, we are sending you to a [place] colorectal surgeon who can discuss next surgical steps. His name is Jerman Meri. His number is [phone]. Finally, we did a CT scan of your chest and lung and did not see any blood clots in the lungs. This is great news! We wish you the best, and we hope that you can connect with these physicians! Pending Studies at Discharge: Yes Studies:: Biopsy results Stand-Alone Forms: My [employer], Smoking Cessation Medications and DC Order Prescriptions: Continued allopurinol 100 mg tablet 100 mg PO DAILY RF: 0 simvastatin 40 mg tablet 40 mg PO DAILY RF: 0 calcium carbonate [Tums] 200 mg calcium (500 mg) Tablet,Chewable 0 mg PO UD PRN (Reason: heart burn) RF: 0 telmisartan-hydrochlorothiazid 80-12.5 mg tablet 1 tab PO CQWK RF: 0 Discharge Orders: Discharge Order (Routine); Ordered 08/10/20 Ordered By: Derick Regalado Admission Data Admit Date/Time: 08/07/20 16:52 Attending Provider: Derick Regalado Admit Provider: Renaldo Redmond Primary Care Provider: Zaheer Cortez Other Providers: Maximiliano Delgadillo ; Colby Schwartz ; Paulette Carrillo ; Derick Regalado Other Interventions: Discharge Summary Assessment (RN) Last Done: 08/10/20 13:42 Coding Level of Care Code D/C Day Management >30 mins Diagnoses Large bowel obstruction K56.609 Tachycardia R00.0 Colonic mass K63.89 BEN (acute kidney injury) N17.9 Hypertension I10 Chronic gout [id number] Hyperlipidemia E78.5 DVT prophylaxis Z29.9
== END 2020-08-10 15:46 | disposition home or self-care (01) | DRG 375 ==
LOC: ED 12:33 → SUATTDRO 16:52 → 2S 16:52

== ENCOUNTER 2023-10-16 10:28 | Inpatient (IN) ==
[2023-10-16 11:41] LABS: Hematocrit (blood only) 35.3 % (42.0-52.0); Hemoglobin 11.5 g/dl (14.0-18.0); Mean Corpuscular Hemoglobin 30.7 pg (25.0-34.0); Mean Corpuscular Hgb Conc 32.6 g/dL (32.0-36.0); Mean Corpuscular Volume 94.1 fL (80.0-100.0); Mean Platelet Volume 9.2 fL (9.4-12.4); Nucleated RBC # (auto) 0.07 K/uL (0.00-0.12); Platelet Count 180 K/uL (130-400); RDW Standard Deviation 57.8 fL (36.4-46.3); Red Blood Count 3.75 M/uL (4.70-6.10); White Blood Count 6.79 K/ul (4.8-10.8)
--- NOTE | 2023-10-16 11:42 | XRay Report ---
XR chest 1V not portable HISTORY: 73 years-old Male Sepsis acute sepsis COMPARISON: Chest radiograph 10/16/2023 PET/CT 10/06/2023. TECHNIQUE: AP view of the chest FINDINGS: Cardiac silhouette is enlarged. Stable positioning of the right IJ Jjpcke-l-Nirq catheter. Layering p leural effusions with bibasilar consolidation has progressed. Pulmonary vascular congestion. Pulmonar y lesions are again noted, partially obscured. Right upper quadrant surgical clips. IMPRESSION: 1. Cardiomegaly with pulmonary vascular congestion. 2. Small pleural effusions, right greater than left with progressive bibasilar consolidation. 3. Bilateral pulmonary lesions are again noted, better seen on the prior PET/CT. ACT 112: Negative or not required by law. The above report was generated using voice recognition software. It may contain grammatical, syntax o r spelling errors. Electronically signed by: Josh Lakhani M.D. 10/16/2023 11:40 AM
[2023-10-16 11:50] LABS: Alanine Aminotransferase 16 U/L (7-52); Albumin Globulin Ratio 1.1 (0.9-2); Albumin Level 3.8 gm/dl (3.4-5.0); Alkaline Phosphatase 100 U/L (34-104); Anion Gap 10 (3-11); Aspartate Aminotransferase 33 U/L (13-39); BUN Creatinine Ratio 11.1 (10-20); Bilirubin,Total 0.9 mg/dl (0.2-1.0); Blood Urea Nitrogen 24 mg/dl (6-23); Calcium 9.1 mg/dl (8.6-10.3); Carbon Dioxide 20 mmol/L (21-32); Chloride 107 mmol/L (98-107); Est GFR (African American) 34.2 ml/min; Est GFR (Non-African American) 29.5 ml/min; Globulin 3.4 gm/dl (2.5-4.0); Glucose 143 mg/dl (70-99(Fasting)); Magnesium 1.5 mg/dl (1.7-2.4); Sodium 137 mmol/L (136-145); Total Protein 7.2 gm/dl (6.0-8.3)
[2023-10-16 12:16] LABS: Partial Thromboplastin Ratio 0.7; Partial Thromboplastin Time 21 Seconds (21-31); Prothrombin Time 10.9 Seconds (9.0-12.0)
[2023-10-16] MEDS ORDERED: CEFEPIME 2,000 MG/20 ML VIAL IV STA (12:23)
[2023-10-16 12:24] LABS: Anisocytosis Present; Basophils # (auto) 0.01 K/uL (0.00-0.20); Basophils % (auto) 0.1 %; Immature Granulocytes # (auto) 0.02 K/uL (0.01-0.20); Immature Granulocytes % (auto) 0.3 %; Lymphocytes # (auto) 0.13 K/uL (1.20-3.40); Lymphocytes % (auto) 1.9 %; Monocytes # (auto) 0.18 K/uL (0.11-0.59); Monocytes % (auto) 2.7 %; Neutrophils # (auto) 6.45 K/uL (1.40-6.50); Ovalocytes 1+; Polychromasia 1+; Tear Drop Cells 1+
--- NOTE | 2023-10-16 12:29 | Emergency Department Note ---
Impression & Plan Sepsis, CKD (chronic kidney disease) stage 4, GFR 15-29 ml/min, Acute urinary retention, Acute UTI, Acute lactic acidosis ED Provider Note Name: HEATHER VANCE Age: 73 Sex: Male Arrives Via: Walk-In Informant: Patient and significant other ED Provider: Jaguar Rosas MD Chief Complaint: Illness Impression: As per impressions above Medical Decision Makin-year-old gentleman with essentially 24 hours worsening illness. Patient with history of metastatic cancer on chemotherapy. Came to the ER overnight noted to have acute urinary retention felt secondary to UTI. Olivares was placed. Rapidly worsening at home. Arrives to the ER with low-grade fever, tachycardia generalized weakness. Septic workup initiated in triage and on my evaluation patient is tired appearing but stable. Vitals are tachycardic otherwise no hypotension. Lactic acid came back moderately elevated. 2 L normal saline bolus ordered rather than 30 mL/kg given his CKD renal history. Repeat lactic acid returned improved. He was given empiric IV broad-spectrum antibiotics with cefepime. Patient not have any significant pelvic discomfort he is not hypotensive any otherwise looks much better after fluids. Will hold off on imaging at this time as he has a soft nontender abdomen. Did discuss possibility of prostatitis as cause but he is currently on broad-spectrum antibiotics. I discussed this with hospitalist and they will further evaluate. Patient stable throughout and agreeable to hospitalization. Triage/Nursing Notes reviewed by Me Differential:Viral syndrome, otitis, pharyngitis, pneumonia, influenza, meningitis, urinary tract infection, sepsis, bacteremia, as well as other pathologies. Vital Signs: reviewed and remarkable for tachycardic Interventions: Normal saline bolus 2 L IV, cefepime 2 g IV Labs:ED labs Reviewed by me and remarkable for elevated lactic acid. Baseline creatinine elevation Imagin view chest x-ray as per my interpretation no infiltrate effusion or abnormal cardiac border. EKG:As per my interpretation. Indication sepsis. Sinus tachycardia 126 bpm no ectopy no ischemia. QTc 437. When compared to EKG of August 07, 2020 there are no longer PVCs and heart rate has decreased. Cardiac/Tele Monitoring: Cardiac Monitoring: An Order was placed for continuous cardiac monitoring. The monitor shows a rate of 80 with a normal sinus rhythm. Consults:Dr. Garcia of the [facility] service Plan: Disposition:Hospitalization. Condition: Good History of Present Illness: 71-year-old male arrives for evaluation illness. Patient has has been feeling sick since yesterday. Gradually worsening. Initially was primarily pelvic discomfort and like he had to have a bowel movement and also unable to urinate. He was seen in the ER this morning and a Olivares was placed. Of note somewhat traumatic given need for multiple attempts and eventually urology had to come in to place the catheter. Notes initially after catheter placement he felt significantly improved. Since then no fevers, chills, body aches have worsened. Feels very tired and exhausted. No appetite. Due to worsening symptoms return to the ER for repeat evaluation. Patient did receive Ancef via IV in the ER few hours ago for presumed UTI causing acute urinary retention. 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 He is on regularly scheduled IV chemotherapy agents as well as oral meds. Past Medical History:See Below Home Medications:See Below Allergies:nkda Vitals:Blood Pressure: 143/84, Pulse 134, RR 20, T 37.2C, O2 96% on RA Physical Exam: GENERAL: Patient is tired/dehydrated appearing and in mild distress. RESPIRATORY: No dyspnea. Clear to auscultation and equal bilaterally. CARDIOVASCULAR: Tachy.No murmur appreciated. GASTROINTESTINAL: Abdomen soft, non-tender, no peritonitis. BACK: No midline tenderness, no CVA tenderness : Irritation and abrasions over glans of penis EXTREMITIES: Normal motion all extremities, no cyanosis, no edema. NEUROLOGIC: Alert and oriented. No focal neurologic deficits appreciated SKIN: No rash, no jaundice, no diaphoresis. PSYCH: Appropriate GCS: 15 ED Course: Times/Reassessments: Repeat volume status examination post IV fluids. Patient with heart rate 90, good cap refill, blood pressure 120 over 70 and oxygenation 97% on room air. Jaguar Rosas MD Past Med/Surg History Medical History (Updated 10/17/23 @ 11:15 by Jaguar Rosas MD) Cancer, metastatic to liver Malignant neoplasm of colon, unspecified History of colon cancer GERD (gastroesophageal reflux disease) Vocal cord nodule removed Tachycardia Hypertension Chronic gout Hyperlipidemia Colonic mass Surgical History S/P excision of vocal cord nodule History of colonoscopy History of colon resection COLON CANCER DIAGNOSIS-08/07/2020 REMOVAL OF COLON TUMOR-12/23/2020 History of resection of liver 03/22/2021 Family History (Updated 08/23/22 @ 09:58 by Macey Cortez) Father , 79 Prostate cancer Mother , 72 Ovarian cancer Breast cancer Diabetes Brother Cancer, Onset Age: 63 Hypertension Other No family history of adverse response to anesthesia No family history of bleeding disorder Social History Smoking Status: Never smoker Second Hand Exposure: No; Do You Dip or Chew Tobacco: No; Tobacco Cessation Education Requested by Patient: No Hx Alcohol Use: Yes Alcohol type: wine and hard liquor Alcohol Intake Frequency Comment: wine with dinner Hx Substance Use: No Preferred Language: Hungarian Communication Ability: Effective Entertainment Musician Required: No Beliefs That Will Affect Care: None marital status: Current Living Situation: Spouse Current Living Situation Comment: 3 level house current occupational status: employed and retired current occupation: [employer] Other Information That Helps Us Care for You: No Feels Safe at Home: Yes Safety Concerns: Feels Safe At This Time Assistive Devices: Denture - Upper, Denture - Lower and Glasses Allergies Allergies Allergy/AdvReac Type Severity Reaction Status Date / Time No Known Drug Allergies Allergy Verified 07/18/23 09:06 Home Meds Home Medications Medication Instructions Recorded Confirmed cholecalciferol (vitamin D3) 25 50 mcg PO QAM 03/30/22 10/16/23 mcg (1,000 unit) capsule (Vitamin D3) simvastatin 20 mg tablet 20 mg PO QPM 10/16/23 10/16/23 trifluridine 20 mg-tipiracil 8.19 1 tab PO UD 10/16/23 10/16/23 mg tablet (Lonsurf) Previous Rx's Medication Instructions Recorded allopurinol 100 mg tablet 100 mg PO QAM #90 tabs 02/02/23 amlodipine 5 mg tablet 5 mg PO QAM #90 tabs 02/02/23 pantoprazole 40 mg tablet,delayed 40 mg PO QAM #90 tabs 02/03/23 release Results & Data (ED) Vital Signs Vital Signs - 24 hr 10/16/23 12:22 10/16/23 12:50 10/16/23 12:53 Pulse Rate 112 H Pulse Rate [Apical] 103 H Respiratory Rate 16 Respiratory Effort / Characteristics Non-Labored Respiratory Depth Normal Blood Pressure [Left Arm] 145/84 H Blood Pressure Mean [Left Arm] 104 Blood Pressure Position [Left Arm] Lying Pulse Oximetry 96 97 Oxygen Delivery Method Room Air Room Air 10/16/23 14:00 Pulse Rate Pulse Rate [Apical] 110 H Respiratory Rate 18 Respiratory Effort / Characteristics Non-Labored Respiratory Depth Normal Blood Pressure [Left Arm] 134/83 Blood Pressure Mean [Left Arm] 100 Blood Pressure Position [Left Arm] Lying Pulse Oximetry 97 Oxygen Delivery Method Room Air Laboratory Data 10/17/23 06:58 10/17/23 06:58 Lab Results 10/16/23 10/16/23 10/16/23 Range/Units 11:19 13:04 13:11 WBC 6.79 (4.8-10.8) K/ul RBC 3.75 L (4.70-6.10) M/uL Hgb 11.5 L (14.0-18.0) g/dl Hct 35.3 L (42.0-52.0) % MCV 94.1 (80.0-100.0) fL MCH 30.7 (25.0-34.0) pg MCHC 32.6 (32.0-36.0) g/dL RDW Std Deviation 57.8 H (36.4-46.3) fL RDW Coeff of Maximilian 17.0 H (11.5-14.5) % Plt Count 180 (130-400) K/uL MPV 9.2 L (9.4-12.4) fL Immature Gran % (Auto) 0.3 % Neut % (Auto) 95.0 % Lymph % (Auto) 1.9 % [place] % (Auto) 2.7 % Eos % (Auto) 0.0 % Baso % (Auto) 0.1 % Neut # (Auto) 6.45 (1.40-6.50) K/uL Lymph # (Auto) 0.13 L (1.20-3.40) K/uL [place]hel # (Auto) 0.18 (0.11-0.59) K/uL Eos # (Auto) 0.00 (0.00-0.50) K/uL Baso # (Auto) 0.01 (0.00-0.20) K/uL Immature Gran # (Auto) 0.02 (0.01-0.20) K/uL Absolute Nucleated RBC 0.07 (0.00-0.12) K/uL Nucleated RBC % (auto) 1.0 % Polychromasia 1+ Anisocytosis Present Tear Drop Cells 1+ Ovalocytes 1+ PT 10.9 (9.0-12.0) Seconds INR 1.0 (0.9-1.1) APTT 21 (21-31) Seconds PTT Ratio 0.7 Sodium 137 (136-145) mmol/L Potassium 4.0 (3.5-5.1) mmol/L Chloride 107 (98-107) mmol/L Carbon Dioxide 20 L (21-32) mmol/L Anion Gap 10 (3-11) BUN 24 H (6-23) mg/dl Creatinine 2.16 H (0.6-1.4) mg/dl Est Cr Clr Drug Dosing Not Reportable Est GFR ( Amer) 34.2 ml/min Est GFR (Non-Af Amer) 29.5 ml/min BUN/Creatinine Ratio 11.1 (10-20) Glucose 143 H (70-99(Fasting)) mg/dl Lactate 3.1 H* 1.6 (0.4-2.0) mmol/L Calcium 9.1 (8.6-10.3) mg/dl Magnesium 1.5 L (1.7-2.4) mg/dl Total Bilirubin 0.9 (0.2-1.0) mg/dl AST 33 (13-39) U/L ALT 16 (7-52) U/L Alkaline Phosphatase 100 (34-104) U/L Troponin I High Sens 12.0 (0-20) pg/ml Total Protein 7.2 (6.0-8.3) gm/dl Albumin 3.8 (3.4-5.0) gm/dl Globulin 3.4 (2.5-4.0) gm/dl Albumin/Globulin Ratio 1.1 (0.9-2) Procalcitonin 2.10 H (0-0.5) ng/ml Adenovirus (PCR) Not Detected (NotDetected) B. pertussis DNA (PCR) Not Detected (NotDetected) B.parapertussis DNA PCR Not Detected (NotDetected) C. pneumoniae DNA (PCR) Not Detected (NotDetected) Coronavirus OC43 (PCR) Not Detected (NotDetected) Coronavirus HKU1 (PCR) Not Detected (NotDetected) Coronavirus 229E (PCR) Not Detected (NotDetected) SARS-CoV-2 (PCR) Not Detected (NotDetected) Coronavirus NL63 (PCR) Not Detected (NotDetected) Human Metapneumovir PCR Not Detected (NotDetected) Influenza Type A (PCR) Not Detected (NotDetected) Influenza Type B (PCR) Not Detected (NotDetected) M. pneumoniae (PCR) Not Detected (NotDetected) Parainfluenza 1 (PCR) Not Detected (NotDetected) Parainfluenza 2 (PCR) Not Detected (NotDetected) Parainfluenza 3 (PCR) Not Detected (NotDetected) Parainfluenza 4 (PCR) Not Detected (NotDetected) RSV (PCR) Not Detected (NotDetected) Entero/Rhino (PCR) Not Detected (NotDetected) Administered Medications Allopurinol (Allopurinol 100 Mg Tab) 100 mg PO [facility] Stop: 11/16/23 08:59 Last Admin: 10/17/23 08:30 Dose: 100 mg Documented By: TOPHER Amlodipine Besylate (Amlodipine Besylate 5 Mg Tab) [facility] [place]: 11/16/23 08:59 Last Admin: 10/17/23 08:29 Dose: 5 mg Documented By: TOPHER Cefepime HCl 2,000 mg/ Syringe 20 mls @ 5 mls/min IV Q12H [facility]; Protocol Stop: 10/27/23 00:59 Last Admin: 10/17/23 01:24 Dose: 5 mls/min Documented By: PHIL Pantoprazole Sodium (Pantoprazole 40 Mg Tab) [facility] [place] Stop: 11/16/23 08:59 Last Admin: 10/17/23 08:29 Dose: 40 mg Documented By: TOPHER Simvastatin (Simvastatin 20 Mg Tab) 20 mg PO QPM [facility] Stop: 11/15/23 20:59 Last Admin: 10/17/23 01:11 Dose: 20 mg Documented By: PHIL Vitamin D (Cholecalciferol 1,000 Units 25 Mcg Tab) 2,000 units PO QAM [facility] Stop: 11/16/23 08:59 Last Admin: 10/17/23 08:29 Dose: 2,000 units Documented By: TOPHER Discontinued Medications Sodium Chloride (Nss) 1,000 mls @ 999 mls/hr IV .Q1H1M [facility] Stop: 10/16/23 14:30 Last Infusion: 10/16/23 15:25 Dose: Infused Documented By: Admin: 10/16/23 13:02 Dose: 999 mls/hr Documented By: Infusion: 10/16/23 13:02 Dose: Infused Documented By: Admin: 10/16/23 13:01 Dose: 999 mls/hr Documented By: MMCourtney Cefepime HCl (Maxipime) 2,000 mg in 20 mls @ 5 mls/min IV NOW STA Stop: 10/16/23 12:26 Last Admin: 10/16/23 13:01 Dose: 5 mls/min Documented By: MMCourtney Imaging Data Radiologist's Impression: Chest X-Ray 10/16/23 11:06 XR chest 1V not portable HISTORY: 73 years-old Male Sepsis acute sepsis COMPARISON: Chest radiograph 10/16/2023 PET/CT 10/06/2023. TECHNIQUE: AP view of the chest FINDINGS: Cardiac silhouette is enlarged. Stable positioning of the right IJ Zodrbz-r-Sbzk catheter. Layering pleural effusions with bibasilar consolidation has progressed. Pulmonary vascular congestion. Pulmonary lesions are again noted, partially obscured. Right upper quadrant surgical clips. IMPRESSION: 1. Cardiomegaly with pulmonary vascular congestion. 2. Small pleural effusions, right greater than left with progressive bibasilar consolidation. 3. Bilateral pulmonary lesions are again noted, better seen on the prior PET/CT. ACT 112: Negative or not required by law. The above report was generated using voice recognition software. It may contain grammatical, syntax or spelling errors. Electronically signed by: Josh Lakhani M.D. 10/16/2023 11:40 AM Discharge Plan Visit Data Chief Complaint: Illness Stated Complaint: CHILLS AND FEVER ED Provider: Jaguar Rosas Discharge Problem: Sepsis, CKD (chronic kidney disease) stage 4, GFR 15-29 ml/min, Acute urinary retention, Acute UTI, Acute lactic acidosis Patient Disposition: Admitted As Inpatient Discharge Instructions Interventions: ED Discharge Assessment Last Done: 10/16/23 21:43 Discharge Problem: Sepsis Qualifiers: Sepsis type: sepsis due to unspecified organism Sepsis acute organ dysfunction status: without acute organ dysfunction Qualified Code(s): A41.9 - Sepsis, unspecified organism
[2023-10-16] MEDS: SODIUM CHLORIDE 0.9% 1,000 ML IV SCH ×2 (13:01→13:02)
[2023-10-16 13:55] LABS: Appearance Urine Cloudy (Clear); Bacteria Urine Automated Negative (Negative); Bilirubin Urine Negative (Negative); Blood Urine 3+ (Negative); Color Urine Orange; Epithelial Cell Urine Auto 0-5 /lpf (0-5); Glucose Urine UA Negative (Negative); Ketones Urine Negative (Negative); Leukocyte Esterase Urine 2+ (Negative); Nitrite Urine Negative (Negative); Protein Urine 2+ (Negative); RBC Urine Automated >30 /hpf (0-4); Specific Gravity Urine 1.014 (1.000-1.030); Urobilinogen Urine Negative (Negative); WBC Urine Automated >30 /hpf (0-5); pH Urine 5.5 (4.5-7.5)
--- NOTE | 2023-10-16 14:00 | History & Physical Report ---
Date of Service October 16, 2023 Assessment & Plan (1) Acute UTI: Plan: History of recurrent UTIs, UA infected appearing With difficult Olivares placement requiring urology consultation AM 10/16 Olivares placed by urology, recommend to keep in place for 1 week and allow false passage to heal, voiding trial in 1 week. Patient was discharged home but experienced rigors and chills and return for further care Clinically patient likely had rigors from gram-negative bacteremia, shaking cold chills and sweats at home following instrumentation. afebrile and no leukocytosis, Pro-Tani is elevated and patient was with sinus tachycardia downtrending post fluid Continue cefepime renally adjusted to every 12 dosing Patient IBW sepsis bolus 2181 cc. Patient completing 2 L NSS at time of assessment. 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 Urology following. Olivares in place, to remain for 1 week with outpatient voiding trial (4) Colon cancer metastasized to liver: Plan: Colon cancer with hepatic and pulmonary metastasis Patient had been transiently on Eliquis 2.5 mg twice a day for nonocclusive peripheral subclavian DVT which was no longer present 06/2022 S/p 6 cycles of full Fery neoadjuvant therapy for sigmoid adenocarcinoma. S/p s igmoid colon resection 2020 and portal vein embolization. [place] [facility] [place] FOLFOX 04/25/2021 - 07/26/2021, modified FOLFOX 04/25/2022 - 08/25/2022 6 cycles. Last on Lonsurf 40 mg, bevacizumab every other week Lonsurf temporarily held in the setting of UTI/sepsis PET/CT last obtained [address] deferred. Abd soft/NT/ND. (5) GERD (gastroesophageal reflux disease): Plan: no epigastric tenderness on admission, continue PPI (6) CKD (chronic kidney disease) stage 4, GFR 15-29 ml/min: Plan: - CKD 3-4 GFR ~30, baseline Cr recently 1.9-2.4 Renal function at baseline, trend BMP daily Creatinine 2.16 on admission, cefepime renally adjusted (7) Hypertension: Plan: Normotensive on admission May continue amlodipine if stable 12/12 (8) Chronic gout: Plan: - Continue allopurinol (9) Hyperlipidemia: Plan: - Continue statin Plan DVT prophylaxis: SCDs in the setting of acute hematuria CODE: DNR/DNI, advance directive copied to chart Dispo: Med/Tele Diet: regular History of Present Illness Primary Care Provider: Zaheer Cortez MD Esa is a 73-year-old male with a past medical history of generalized illness of 1 day which began as pelvic and abdominal discomfort. Olivares was placed in the ER, multiple attempts were required and urology was subsequently consulted. Patient felt greatly improved following catheter improvement. He has a history of metastatic colon cancer with mets to lung and liver on chemotherapy. Patient was started on antibiotics for UTI induced acute urinary retention and discharged home. Noticed last night had the urge to urinate but was unsuccessful. This morning felt like he had 2 times where he couldvoid a little, but still had the urge to pee and could not empty his bladder. Cath was attempted for placement, but unforunately this was not successful and required Urology to place. After decompression felt greatly improved. Discharged approximately 7:30am and was very cold. Then he devloped tshaking chills. [place] terrible and returned as directed by nursing.Since getting back to the ER he feels grealty improved with no recurrent rigors.No shortness of breath. No history of CHF/HF. +pleural effusions likely maliganant. No chestp ain/chest pressure. Aug 06 2020 was diagnosed with colon cancer with liver mets. [place] [facility] 2021 had liver resection, and as a result unforunately had vocal cord damage with improvement. Avastin every two weeks and oral lonsurf. Dropping lonsurf and replacing to a new medication in November. Last treated for UTI last year in [place]. PET scan two weeks ago. Xray this morning. Pet CT is in [facility] records. Medical History: Reviewed Medications: Reviewed Surgical History: Reviewed Family history: Reviewed Allergies: Reviewed Social History: No tobacco. 1 glass of wine with dinner, no hx etoh withdrawal Code Status: DNR/DNI Allergies Allergy/AdvReac Type Severity Reaction Status Date / Time No Known Drug Allergies Allergy Verified 07/18/23 09:06 Home Medications Medication Instructions Recorded Confirmed Type cholecalciferol (vitamin D3) 25 50 mcg PO QAM 03/30/22 10/16/23 History mcg (1,000 unit) capsule (Vitamin D3) allopurinol 100 mg tablet 100 mg PO QAM #90 tabs 02/02/23 10/16/23 Rx amlodipine 5 mg tablet 5 mg PO QAM #90 tabs 02/02/23 10/16/23 Rx pantoprazole 40 mg tablet,delayed 40 mg PO QAM #90 tabs 02/03/23 10/16/23 Rx release simvastatin 20 mg tablet 20 mg PO QPM 10/16/23 10/16/23 History trifluridine 20 mg-tipiracil 8.19 1 tab PO UD 10/16/23 10/16/23 History mg tablet (Lonsurf) Past Med/Surg History Medical History (Updated 10/16/23 @ 14:36 by Randal Garcia MD) Cancer, metastatic to liver Malignant neoplasm of colon, unspecified History of colon cancer GERD (gastroesophageal reflux disease) Vocal cord nodule removed Tachycardia Hypertension Chronic gout Hyperlipidemia Colonic mass Surgical History S/P excision of vocal cord nodule History of colonoscopy History of colon resection COLON CANCER DIAGNOSIS-08/07/2020 REMOVAL OF COLON TUMOR-12/23/2020 History of resection of liver 03/22/2021 Family History (Updated 08/23/22 @ 09:58 by Macey Cortez) Father , 79 Prostate cancer Mother , 72 Ovarian cancer Breast cancer Diabetes Brother Cancer, Onset Age: 63 Hypertension Other No family history of adverse response to anesthesia No family history of bleeding disorder Social History Smoking Status: Never smoker Second Hand Exposure: No; Do You Dip or Chew Tobacco: No; Hx Alcohol Use: Yes Alcohol type: wine and hard liquor Alcohol Intake Frequency Comment: wine with dinner Hx Substance Use: No Preferred Language: Frisian Communication Ability: Effective 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 NAD. Cooperative. HEENT: Atraumatic, normocephalic. Pulm: Bibasilar crackles. Symmetrical chest rise. No increased work of breathing. No respiratory distress. Cardiac: regular, tachycardia, trace systolic murmur. Radial pulses intact and symmetrical. Abdominal: Nontender, nondistended, soft. BS present. Olivares in place draining yellow with blood-tinged urine Results & Data Results & Data Vital Signs (Past 12 Hours) Vital Signs Temp Pulse Pulse Resp BP BP Pulse Ox 10/16/23 12:53 103 H 16 145/84 H 97 10/16/23 12:50 112 H 10/16/23 12:22 96 10/16/23 11:03 37.2 C 134 H 20 143/84 H 97 O2 Del Method 10/16/23 12:53 Room Air 10/16/23 12:50 10/16/23 12:22 Room Air 10/16/23 11:03 PG Care Time/CCT Total # of Minutes Spent Total Time Spent with Patient: Total time spent is greater than 50% in coordination of care (as documented) at patient's floor/unit and/or counseling patient: Coding Level of Care Code 58191 INT INP/OBS CARE 3/75MIN Diagnoses Acute UTI N39.0 Sepsis A41.9 Acute urinary retention R33.8 Colon cancer metastasized to liver C18.9; C78.7 GERD (gastroesophageal reflux disease) K21.9 CKD (chronic kidney disease) stage 4, GFR 15-29 ml/min N18.4 Hypertension I10 Chronic gout [id number] Hyperlipidemia E78.5
[2023-10-16 14:19] LABS: Adenovirus PCR Not Detected (NotDetected); Bordetella parapertussis PCR Not Detected (NotDetected); Bordetella pertussis PCR Not Detected (NotDetected); Chlamydia pneumoniae PCR Not Detected (NotDetected); Coronavirus 229E PCR Not Detected (NotDetected); Coronavirus CoV-2 (COVID19)PCR Not Detected (NotDetected); Coronavirus HKU1 PCR Not Detected (NotDetected); Coronavirus NL63 PCR Not Detected (NotDetected); Coronavirus OC43PCR Not Detected (NotDetected); Human Metapneumovirus PCR Not Detected (NotDetected); Influenza A PCR Not Detected (NotDetected); Influenza B PCR Not Detected (NotDetected); Mycoplasma pneumoniae PCR Not Detected (NotDetected); Parainfluenza Virus 1 PCR Not Detected (NotDetected); Parainfluenza Virus 2 PCR Not Detected (NotDetected); Parainfluenza Virus 3 PCR Not Detected (NotDetected); Parainfluenza Virus 4 PCR Not Detected (NotDetected); Respiratory Syncytial VirusPCR Not Detected (NotDetected); Rhinovirus/Enterovirus PCR Not Detected (NotDetected)
[2023-10-16] MEDS ORDERED: ONDANSETRON INJ 2 MG/ML 2 ML VIAL IV PRN (17:17)
[2023-10-16] MEDS ORDERED: ACETAMINOPHEN 325 MG TAB PO PRN (17:17)
[2023-10-16] MEDS ORDERED: POLYETHYLENE (MIRALAX) 17 GM PACK PO PRN (17:17)
--- NOTE | 2023-10-16 19:01 | Electrocardiogram Report ---
Test Reason : Blood Pressure : / mmHG Vent. Rate : 126 BPM Atrial Rate : 126 BPM P-R Int : 144 ms QRS Dur : 074 ms QT Int : 302 ms P-R-T Axes : 022 -17 032 degrees QTc Int : 437 ms Sinus tachycardia Minimal voltage criteria for LVH, may be normal variant ( R in aVL ) Anterior infarct (cited on or before 16-OCT-2023) Abnormal ECG When compared with ECG of 07-AUG-2020 18:22, Premature ventricular complexes are no longer Present Confirmed by Willie Burks ([id number]) on 10/16/2023 7:01:15 PM Referred By: Confirmed By:Willie Burks
[2023-10-17] MEDS: SIMVASTATIN 20 MG TAB PO SCH ×2 (01:11→20:07)
[2023-10-17] MEDS: CEFEPIME 2,000 MG in SYRINGE 0 ML IV SCH ×2 (01:24→13:27)
[2023-10-17 07:54] LABS: BUN Creatinine Ratio 11.7 (10-20); Calcium 8.7 mg/dl (8.6-10.3); Creatinine Clr Calc Pharmacy 33.9 ml/min; Est GFR (African American) 34.8 ml/min; Potassium 4.2 mmol/L (3.5-5.1)
[2023-10-17] MEDS: CHOLECALCIFEROL 1,000 UNITS 25 MCG TAB PO SCH (08:29)
[2023-10-17] MEDS: amLODIPine BESYLATE 5 MG TAB PO SCH (08:29)
[2023-10-17] MEDS: PANTOprazole 40 MG TAB PO SCH (08:29)
[2023-10-17] MEDS: allopurinoL 100 MG TAB PO SCH (08:30)
[2023-10-17 08:37] LABS: Hematocrit (blood only) 28.7 % (42.0-52.0); Hemoglobin 9.6 g/dl (14.0-18.0); Mean Corpuscular Hemoglobin 31.8 pg (25.0-34.0); Mean Corpuscular Hgb Conc 33.4 g/dL (32.0-36.0); Mean Platelet Volume 11.3 fL (9.4-12.4); Platelet Count 155 K/uL (130-400); RDW Standard Deviation 62.1 fL (36.4-46.3); Red Blood Count 3.02 M/uL (4.70-6.10)
[2023-10-17 08:39] LABS: Basophils # (auto) 0.02 K/uL (0.00-0.20); Basophils % (auto) 0.2 %; Eosinophils # (auto) 0.03 K/uL (0.00-0.50); Eosinophils % (auto) 0.3 %; Immature Granulocytes # (auto) 0.06 K/uL (0.01-0.20); Immature Granulocytes % (auto) 0.6 %; Lymphocytes # (auto) 0.25 K/uL (1.20-3.40); Lymphocytes % (auto) 2.5 %; Monocytes # (auto) 0.66 K/uL (0.11-0.59); Monocytes % (auto) 6.7 %; Neutrophils # (auto) 8.88 K/uL (1.40-6.50); Neutrophils % (auto) 89.7 %; Ovalocytes 1+; Polychromasia 1+; Toxic Vacuolation 1+
[2023-10-17] MEDS: HEPARIN 100 UNIT/ML 5ML FLUSH FLUSH PRN (13:27)
--- NOTE | 2023-10-17 17:51 | Hospitalist Progress Note ---
Date of Service October 17, 2023 Assessment & Plan (1) Acute UTI: Plan: History of recurrent UTIs, UA infected appearing With difficult Olivares placement requiring urology consultation AM 10/16 Olivares placed by urology, recommend to keep in place for 1 week and allow false passage to heal, voiding trial in 1 week. Patient was discharged home but experienced rigors and chills and return for further care Clinically patient likely had rigors from gram-negative bacteremia, shaking cold chills and sweats at home following instrumentation. afebrile and no leukocytosis, Pro-Tani is elevated and patient was with sinus tachycardia downtrending post fluid Continue cefepime renally adjusted to every 12 dosing Blood culture pending, urine culture pending (2) Sepsis: Plan: As noted (3) Acute urinary retention: Plan: Notedwith acute UTI. Urology following. Olivares in place, to remain for 1 week with outpatient voiding trial (4) Colon cancer metastasized to liver: Plan: Colon cancer with hepatic and pulmonary metastasis Patient had been transiently on Eliquis 2.5 mg twice a day for nonocclusive peripheral subclavian DVT which was no longer present 06/2022 S/p 6 cycles of full Fery neoadjuvant therapy for sigmoid adenocarcinoma. S/p sigmoid colon resection 2020 and portal vein embolization. Liver lesions resected 03/2021 at [facility] [place]. FOLFOX 04/25/2021 - 07/26/2021, modified FOLFOX 04/25/2022 - 08/25/2022 6 cycles. Last on Lonsurf 40 mg, bevacizumab every other week Lonsurf temporarily held in the setting of UTI/sepsis PET/CT last obtained [address] deferred. Abd soft/NT/ND. (5) GERD (gastroesophageal reflux disease): Plan: no epigastric tenderness on admission, continue PPI (6) CKD (chronic kidney disease) stage 4, GFR 15-29 ml/min: Plan: - CKD 3-4 GFR ~30, baseline Cr recently 1.9-2.4 Renal function at baseline, trend BMP daily Creatinine 2.16 on admission, stable at 2.13 today. cefepime renally adjusted (7) Hypertension: Plan: Normotensive on admission May continue amlodipine if stable 10/17 (8) Chronic gout: Plan: - Continue allopurinol (9) Hyperlipidemia: Plan: - Continue statin Plan DVT prophylaxis: SCDs in the setting of acute hematuria CODE: DNR/DNI, advance directive copied to chart Dispo: Med/Tele Diet: regular Admission and Anticipated Discharge Date Admission Date: October 16, 2023 Subjective patient says that he is feeling much better. Denies any chest pain or shortness of breath. Review of Systems Review of Systems: All systems reviewed & are unremarkable except as noted in Subjective Physical Exam Physical Exam: General: Awake, conversant Heart: S1, S2/regular rate and rhythm, no murmur rubs or gallops Lungs: Clear to auscultation bilaterally. Normal effort Abdomen: Soft/nontender/nondistended. No hepatosplenomegaly. Olivares catheter in place, draining straw-colored urine Extremities: No clubbing/cyanosis. No edema Behavior: Appropriate, cooperative Results & Data Results & Data Vital Signs (Past 12 Hours) Vital Signs Temp Pulse Pulse Resp BP Pulse Ox O2 Del Method 10/17/23 15:22 37.3 C 86 16 134/79 97 Room Air 10/17/23 14:05 90 10/17/23 11:20 37.4 C 90 18 124/73 95 Room Air 10/17/23 07:32 37.0 C 89 18 128/79 96 Room Air 10/17/23 05:57 79 Laboratory Results Abnormal lab results 10/17/23 Range/Units 06:58 RBC 3.02 L (4.70-6.10) M/uL Hgb 9.6 L (14.0-18.0) g/dl Hct 28.7 L (42.0-52.0) % RDW Std Deviation 62.1 H (36.4-46.3) fL RDW Coeff of Maximilian 18.0 H (11.5-14.5) % Neut # (Auto) 8.88 H (1.40-6.50) K/uL Lymph # (Auto) 0.25 L (1.20-3.40) K/uL [place] # (Auto) 0.66 H (0.11-0.59) K/uL Chloride 109 H (98-107) mmol/L BUN 25 H (6-23) mg/dl Creatinine 2.13 H (0.6-1.4) mg/dl PG Care Time/CCT Total # of Minutes Spent Total Time Spent with Patient: Total time spent is greater than 50% in coordination of care (as documented) at patient's floor/unit and/or counseling patient: Coding Level of Care Code 34585 SUB INP/OBS CARE 235MIN Diagnoses Acute UTI N39.0 Sepsis A41.9 Sepsis acute organ dysfunction status: without acute organ dysfunction Sepsis type: sepsis due to unspecified organism Acute urinary retention R33.8 Colon cancer metastasized to liver C18.9; C78.7 GERD (gastroesophageal reflux disease) K21.9 CKD (chronic kidney disease) stage 4, GFR 15-29 ml/min N18.4 Hypertension I10 Chronic gout [id number].[id number] Hyperlipidemia E78.5 (2) Sepsis Sepsis acute organ dysfunction status: without acute organ dysfunction Sepsis type: sepsis due to unspecified organism Qualified Code(s): A41.9 - Sepsis, unspecified organism
[2023-10-18] MEDS: CEFEPIME 2,000 MG in SYRINGE 0 ML IV SCH (00:30)
[2023-10-18 07:04] LABS: Hematocrit (blood only) 29.7 % (42.0-52.0); Hemoglobin 9.7 g/dl (14.0-18.0); Mean Corpuscular Hgb Conc 32.7 g/dL (32.0-36.0); Mean Corpuscular Volume 94.9 fL (80.0-100.0); Mean Platelet Volume 10.6 fL (9.4-12.4); Platelet Count 148 K/uL (130-400); RDW Coefficient of Variation 17.6 % (11.5-14.5); RDW Standard Deviation 60.4 fL (36.4-46.3); Red Blood Count 3.13 M/uL (4.70-6.10); White Blood Count 7.22 K/ul (4.8-10.8)
[2023-10-18 07:24] LABS: Basophils # (auto) 0.02 K/uL (0.00-0.20); Basophils % (auto) 0.3 %; Eosinophils # (auto) 0.09 K/uL (0.00-0.50); Eosinophils % (auto) 1.2 %; Immature Granulocytes # (auto) 0.02 K/uL (0.01-0.20); Immature Granulocytes % (auto) 0.3 %; Lymphocytes # (auto) 0.47 K/uL (1.20-3.40); Lymphocytes % (auto) 6.5 %; Monocytes # (auto) 0.67 K/uL (0.11-0.59); Monocytes % (auto) 9.3 %; Neutrophils # (auto) 5.95 K/uL (1.40-6.50); Neutrophils % (auto) 82.4 %; Ovalocytes 1+
[2023-10-18 07:28] LABS: BUN Creatinine Ratio 13.3 (10-20); Calcium 8.6 mg/dl (8.6-10.3); Creatinine Clr Calc Pharmacy 34.4 ml/min; Est GFR (African American) 35.4 ml/min; Est GFR (Non-African American) 30.5 ml/min; Potassium 3.9 mmol/L (3.5-5.1)
[2023-10-18] MEDS: allopurinoL 100 MG TAB PO SCH (08:52)
[2023-10-18] MEDS: PANTOprazole 40 MG TAB PO SCH (08:52)
[2023-10-18] MEDS: CHOLECALCIFEROL 1,000 UNITS 25 MCG TAB PO SCH (08:52)
[2023-10-18] MEDS: amLODIPine BESYLATE 5 MG TAB PO SCH (08:52)
--- NOTE | 2023-10-18 13:47 | Hospitalist Progress Note ---
Date of Service October 18, 2023 Assessment & Plan (1) Acute UTI: Plan: History of recurrent UTIs, UA infected appearing With difficult Olivares placement requiring urology consultation AM 10/16 Olivares placed by urology, recommend to keep in place for 1 week and allow false passage to heal, voiding trial in 1 week. Patient was discharged home but experienced rigors and chills and return for further care Clinically patient likely had rigors from gram-negative bacteremia, shaking cold chills and sweats at home following instrumentation. afebrile and no leukocytosis, Pro-Tani is elevated and patient was with sinus tachycardia downtrending post fluid Blood culture pending Urine culture negative (patient may have received antibiotics during the first ER visit that could have skewed the results) Decided to switch IV cefepime to p.o. Keflex today. Likely discharge tomorrow if continues to do well and all cultures remain negative (2) Sepsis: Plan: As noted (3) Acute urinary retention: Plan: Notedwith acute UTI. Urology following. Olivares in place, to remain for 1 week with outpatient voiding trial Will arrange for follow-up urology visit (4) Colon cancer metastasized to liver: Plan: Colon cancer with hepatic and pulmonary metastasis Patient had been transiently on Eliquis 2.5 mg twice a day for nonocclusive peripheral subclavian DVT which was no longer present 06/2022 S/p 6 cycles of full Fery neoadjuvant therapy for sigmoid adenocarcinoma. S/p sigmoid colon resection 2020 and portal vein embolization. Liver lesions resected 03/2021 at [facility] [place]. FOLFOX 04/25/2021 - 07/26/2021, modified FOLFOX 04/25/2022 - 08/25/2022 6 cycles. Last on Lonsurf 40 mg, bevacizumab every other week Lonsurf temporarily held in the setting of UTI/sepsis PET/CT last obtained [address] deferred. Abd soft/NT/ND. (5) GERD (gastroesophageal reflux disease): Plan: no epigastric tenderness on admission, continue PPI (6) CKD (chronic kidney disease) stage 4, GFR 15-29 ml/min: Plan: - CKD 3-4 GFR ~30, baseline Cr recently 1.9-2.4 Renal function at baseline, trend BMP daily Creatinine 2.16 on admission, stable at 2.1 today. (7) Hypertension: Plan: Normotensive on admission May continue amlodipine (8) Chronic gout: Plan: - Continue allopurinol (9) Hyperlipidemia: Plan: - Continue statin Plan DVT prophylaxis: SCDs in the setting of acute hematuria CODE: DNR/DNI, advance directive copied to chart Diet: regular Admission and Anticipated Discharge Date Admission Date: October 16, 2023 Subjective patient continues to feel well. Denies chest pain or shortness of breath. Review of Systems Review of Systems: All systems reviewed & are unremarkable except as noted in Subjective Physical Exam Physical Exam: General: Awake, conversant Heart: S1, S2/regular rate and rhythm, no murmur rubs or gallops Lungs: Clear to auscultation bilaterally. Normal effort Abdomen: Soft/nontender/nondistended. No hepatosplenomegaly. Olivares catheter in place, draining straw-colored urine Extremities: No clubbing/cyanosis. No edema Behavior: Appropriate, cooperative Results & Data Results & Data Vital Signs (Past 12 Hours) Vital Signs Temp Pulse Pulse Resp BP Pulse Ox O2 Del Method 10/18/23 11:19 36.8 C 82 18 123/73 96 Room Air 10/18/23 07:26 36.8 C 81 18 129/84 95 Room Air 10/18/23 05:57 78 10/18/23 03:49 36.5 C 79 20 133/79 97 Room Air Laboratory Results Abnormal lab results 10/18/23 Range/Units 06:20 RBC 3.13 L (4.70-6.10) M/uL Hgb 9.7 L (14.0-18.0) g/dl Hct 29.7 L (42.0-52.0) % RDW Std Deviation 60.4 H (36.4-46.3) fL RDW Coeff of Maximilian 17.6 H (11.5-14.5) % Lymph # (Auto) 0.47 L (1.20-3.40) K/uL [place] # (Auto) 0.67 H (0.11-0.59) K/uL Chloride 111 H (98-107) mmol/L BUN 28 H (6-23) mg/dl Creatinine 2.10 H (0.6-1.4) mg/dl PG Care Time/CCT Total # of Minutes Spent Total Time Spent with Patient: Total time spent is greater than 50% in coordination of care (as documented) at patient's floor/unit and/or counseling patient: Coding Level of Care Code 65528 SUB INP/OBS CARE 2MIN Diagnoses Acute UTI N39.0 Sepsis A41.9 Sepsis acute organ dysfunction status: without acute organ dysfunction Sepsis type: sepsis due to unspecified organism Acute urinary retention R33.8 Colon cancer metastasized to liver C18.9; C78.7 GERD (gastroesophageal reflux disease) K21.9 CKD (chronic kidney disease) stage 4, GFR 15-29 ml/min N18.4 Hypertension I10 Chronic gout [id number].9XX0 Hyperlipidemia E78.5 (2) Sepsis Sepsis acute organ dysfunction status: without acute organ dysfunction Sepsis type: sepsis due to unspecified organism Qualified Code(s): A41.9 - Sepsis, unspecified organism
[2023-10-18] MEDS: SIMVASTATIN 20 MG TAB PO SCH (20:37)
[2023-10-19] MEDS: cephALEXin 500 MG CAP PO SCH ×3 (02:25→13:08)
[2023-10-19] MEDS: HEPARIN 100 UNIT/ML 5ML FLUSH FLUSH PRN (05:58)
[2023-10-19 06:50] LABS: Hematocrit (blood only) 31.4 % (42.0-52.0); Hemoglobin 10.2 g/dl (14.0-18.0); Mean Corpuscular Hemoglobin 30.9 pg (25.0-34.0); Mean Corpuscular Hgb Conc 32.5 g/dL (32.0-36.0); Mean Corpuscular Volume 95.2 fL (80.0-100.0); Mean Platelet Volume 10.3 fL (9.4-12.4); Platelet Count 161 K/uL (130-400); RDW Coefficient of Variation 17.6 % (11.5-14.5); RDW Standard Deviation 60.3 fL (36.4-46.3); White Blood Count 5.79 K/ul (4.8-10.8)
[2023-10-19 07:12] LABS: BUN Creatinine Ratio 12.7 (10-20); Calcium 9.1 mg/dl (8.6-10.3); Creatinine Clr Calc Pharmacy 32.6 ml/min; Est GFR (African American) 36.4 ml/min; Est GFR (Non-African American) 31.4 ml/min
[2023-10-19 07:30] LABS: Basophils # (auto) 0.02 K/uL (0.00-0.20); Basophils % (auto) 0.3 %; Eosinophils % (auto) 1.7 %; Immature Granulocytes # (auto) 0.02 K/uL (0.01-0.20); Immature Granulocytes % (auto) 0.3 %; Lymphocytes # (auto) 0.64 K/uL (1.20-3.40); Lymphocytes % (auto) 11.1 %; Monocytes # (auto) 0.75 K/uL (0.11-0.59); Neutrophils # (auto) 4.26 K/uL (1.40-6.50); Neutrophils % (auto) 73.6 %; Ovalocytes 1+; Tear Drop Cells 1+
[2023-10-19] MEDS: CHOLECALCIFEROL 1,000 UNITS 25 MCG TAB PO SCH (08:11)
[2023-10-19] MEDS: amLODIPine BESYLATE 5 MG TAB PO SCH (08:11)
[2023-10-19] MEDS: PANTOprazole 40 MG TAB PO SCH (08:11)
[2023-10-19] MEDS: allopurinoL 100 MG TAB PO SCH (08:11)
--- NOTE | 2023-10-19 10:05 | Discharge Summary ---
Date of Service October 19, 2023 Admission HPI Per Admitting Provider Esa is a 73-year-old male with a past medical history of generalized illness of 1 day which began as pelvic and abdominal discomfort. Olivares was placed in the ER, multiple attempts were required and urology was subsequently consulted. Patient felt greatly improved following catheter improvement. He has a history of metastatic colon cancer with mets to lung and liver on chemotherapy. Patient was started on antibiotics for UTI induced acute urinary retention and discharged home. Noticed last night had the urge to urinate but was unsuccessful. This morning felt like he had 2 times where he couldvoid a little, but still had the urge to pee and could not empty his bladder. Cath was attempted for placement, but unforunately this was not successful and required Urology to place. After d ecompression felt greatly improved. Discharged approximately 7:30am and was very cold. Then he devloped tshaking chills. [place] terrible and returned as directed by nursing.Since getting back to the ER he feels grealty improved with no recurrent rigors.No shortness of breath. No history of CHF/HF. +pleural effusions likely maliganant. No chestp ain/chest pressure. Aug 06 2020 was diagnosed with colon cancer with liver mets. 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 Avastin every two weeks and oral lonsurf. Dropping lonsurf and replacing to a new medication in November. Last treated for UTI last year in [place]. PET scan two weeks ago. Xray this morning. [place] [facility] [place]. Medical History: Reviewed Medications: Reviewed Surgical History: Reviewed Family history: Reviewed Allergies: Reviewed Social History: No tobacco. 1 glass of wine with dinner, no hx etoh withdrawal Code Status: DNR/DNI Admission Exam Per Admitting Provider General: A&Ox3. NAD. Cooperative. HEENT: Atraumatic, normocephalic. Pulm: Bibasilar crackles. Symmetrical chest rise. No increased work of breathing. No respiratory distress. Cardiac: regular, tachycardia, trace systolic murmur. Radial pulses intact and symmetrical. Abdominal: Nontender, nondistended, soft. BS present. Olivares in place draining yellow with blood-tinged urine Principal Diagnosis Acute complicated UTI related to urinary retention Urinary retention, Olivares catheter in place Sepsis Discharge Exam General: Awake, conversant Heart: S1, S2/regular rate and rhythm, no murmur rubs or gallops Lungs: Clear to auscultation bilaterally. Normal effort Abdomen: Soft/nontender/nondistended. No hepatosplenomegaly. Olivares catheter in place, draining straw-colored urine Extremities: No clubbing/cyanosis. No edema Behavior: Appropriate, cooperative Discharge Data Allergies Allergy/AdvReac Type Severity Reaction Status Date / Time No Known Drug Allergies Allergy Verified 07/18/23 09:06 Consultations 10/16/23 13:50 ED Decision to Admit Stat Hospital Course (1) Acute UTI: History of recurrent UTIs, UA infected appearing With difficult Olivares placement requiring urology consultation AM 10/16 Olivares placed by urology, recommend to keep in place for 1 week and allow false passage to heal, voiding trial in 1 week. Patient was discharged home but experienced rigors and chills and return for further care Clinically patient likely had rigors from gram-negative bacteremia, shaking cold chills and sweats at home following instrumentation. afebrile and no leukocytosis, Pro-Tani is elevated and patient was with sinus tachycardia downtrending post fluid Blood culture and urine culture are negative (patient may have received antibiotics during the first ER visit that could have skewed the results) Discharge on p.o. Keflex (2) Sepsis: As noted (3) Acute urinary retention: Notedwith acute UTI. Urology following. Olivares in place, to remain for 1 week with outpatient voiding trial Will arrange for follow-up urology visit Started Flomax (4) Colon cancer metastasized to liver: Colon cancer with hepatic and pulmonary metastasis Patient had been transiently on Eliquis 2.5 mg twice a day for nonocclusive peripheral subclavian DVT which was no longer present 06/2022 S/p 6 cycles of full Fery neoadjuvant therapy for sigmoid adenocarcinoma. S/p sigmoid colon resection 2020 and portal vein embolization. Liver lesions resected 03/2021 at [facility]. FOLFOX 04/25/2021 - 07/26/2021, modified FOLFOX 04/25/2022 - 08/25/2022 6 cycles. Last on Lonsurf 40 mg, bevacizumab every other week Lonsurf temporarily held in the setting of UTI/sepsis PET/CT last obtained [address] deferred. Abd soft/NT/ND. (5) GERD (gastroesophageal reflux disease): no epigastric tenderness on admission, continue PPI (6) CKD (chronic kidney disease) stage 4, GFR 15-29 ml/min: - CKD 3-4 GFR ~30, baseline Cr recently 1.9-2.4 Renal function at baseline, trend BMP daily Creatinine 2.16 on admission, stable (7) Hypertension: Normotensive on admission May continue amlodipine (8) Chronic gout: - Continue allopurinol (9) Hyperlipidemia: - Continue statin Plan DVT prophylaxis: SCDs in the setting of acute hematuria CODE: DNR/DNI, advance directive copied to chart Diet: regular Total Time Total Time Spent Total Time Spent (In Minutes): 35 Discharge Plan Discharge Items Patient Disposition: Home - Self-Care Reason For Visit: UTI, SUSPECT GN BACTEREMIA Discharge Diagnosis: Acute complicated UTI related to urinary retention Urinary retention, Olivares catheter in place Sepsis Activity: Resume your previous activity Non-emergency contact: Primary Care Provider Call non-emergency contact if: you have any medication questions and your symptoms worsen Follow-up/Referrals: Jaguar Agudelo MD [Physician] - 10/27/23 9:15 am ([facility] 6 week follow -up 11/27/2023 @ 2:20 PM --- same office Please call the office at [phone] if any questions. THank you ) Zaheer Cortez MD [Primary Care Provider] - 10/26/23 11:00 am Diet: Heart Healthy Addtl Attending Provider Instructions: Advised to follow-up with PCP in 1 week Advised to follow-up with urology in 1 week as you are being discharged with a Olivares catheter in place Advised to note that you are being discharged on oral Keflex to complete the course Pending Studies at Discharge: No Stand-Alone Forms: My [facility] Medications and DC Order Prescriptions: New cephalexin 500 mg capsule 500 mg PO BID 5 Days Qty: 10 0RF tamsulosin [Flomax] 0.4 mg capsule 0.4 mg PO HS Qty: 30 0RF Continued pantoprazole 40 mg tablet,delayed release (DR/EC) 40 mg PO QAM Qty: 90 3RF amlodipine 5 mg tablet 5 mg PO QAM Qty: 90 3RF allopurinol 100 mg tablet 100 mg PO QAM Qty: 90 3RF cholecalciferol (vitamin D3) [Vitamin D3] 25 mcg (1,000 unit) Capsule 50 mcg PO QAM Lonsurf 20-8.19 mg tablet 1 tab PO UD simvastatin 20 mg tablet 20 mg PO QPM Discharge Orders: Discharge Order (Routine); Ordered 10/19/23 Ordered By: Macy Cornell/Other Patient Handouts: Urinary Catheter Bag Empty Clean, Indwelling Urinary Catheter Dc, Leg Bag Care Dc Admission Data Admit Date/Time: 10/16/23 14:41 Attending Provider: Macy Nevarez Admit Provider: Randal Garcia Primary Care Provider: Zaheer Cortez Other Providers: Randal Garcia Other Interventions: Discharge Summary Assessment (RN) Last Done: 10/19/23 13:22 Coding Level of Care Code 62101 INP/OBS DISCH >30 MIN Diagnoses Acute UTI N39.0 Sepsis A41.9 Sepsis acute organ dysfunction status: without acute organ dysfunction Sepsis type: sepsis due to unspecified organism Acute urinary retention R33.8 Colon cancer metastasized to liver C18.9; C78.7 GERD (gastroesophageal reflux disease) K21.9 CKD (chronic kidney disease) stage 4, GFR 15-29 ml/min N18.4 Hypertension I10 Chronic gout [id number] Hyperlipidemia E78.5
== END 2023-10-19 14:31 | disposition home or self-care (01) | DRG 872 ==
LOC: ED 10:28 → SUATTDRO 14:41 → EDINP 14:41 → 2N 21:43

== ENCOUNTER 2024-09-30 13:43 | Inpatient (IN) ==
--- NOTE | 2024-09-30 14:42 | XRay Report ---
XR chest 1V portable CLINICAL HISTORY: Altered mental status. COMPARISON STUDY: Chest radiograph March 22, 2024. PET/CT September 13, 2024. FINDINGS: A right internal jugular [id number] in place. There is no pneumothorax. A moderate right pleural effusion is similar to prior PET/CT. Numerous pulmonary masses and nodules are also similar to prior PET/CT. There is pulmonary vascular congestion. Cardiomediastinal silhouette is stable. IMPRESSION: 1. Moderate right pleural effusion, similar to prior PET/CT. 2. Redemonstration of numerous pulmonary metastases. 3. Pulmonary vascular congestion. 4. No pneumothorax. ACT 112: Negative or not required by law. Electronically signed by: Joss Romero M.D. 09/30/2024 2:41 PM
[2024-09-30 15:24] LABS: Basophils # (auto) 0.01 K/uL (0.00-0.20); Basophils % (auto) 0.1 %; Eosinophils # (auto) 0.01 K/uL (0.00-0.50); Eosinophils % (auto) 0.1 %; Hemoglobin 9.9 g/dl (14.0-18.0); Immature Granulocytes # (auto) 0.05 K/uL (0.01-0.20); Immature Granulocytes % (auto) 0.5 %; Lymphocytes # (auto) 0.16 K/uL (1.20-3.40); Lymphocytes % (auto) 1.7 %; Mean Corpuscular Hemoglobin 30.6 pg (25.0-34.0); Mean Corpuscular Volume 92.6 fL (80.0-100.0); Mean Platelet Volume 9.8 fL (9.4-12.4); Monocytes # (auto) 1.24 K/uL (0.11-0.59); Monocytes % (auto) 13.6 %; Neutrophils # (auto) 7.68 K/uL (1.40-6.50); Platelet Count 256 K/uL (130-400); RDW Standard Deviation 54.3 fL (36.4-46.3); Red Blood Count 3.24 M/uL (4.70-6.10); White Blood Count 9.15 K/ul (4.8-10.8)
[2024-09-30] MEDS: SODIUM CHLORIDE 0.9% 500 ML IV ONE (15:29)
--- NOTE | 2024-09-30 15:32 | Emergency Department Note ---
Impression & Plan Acute confusion, Acute on chronic renal insufficiency, Colon cancer metastasized to lung, Colon cancer metastasized to liver ED Provider Note NAME: HEATHER VANCE AGE: 74 SEX: M : 1950 ARRIVES VIA: Walk-In INFORMANT: Patient ED PROVIDER(S): Chucky Burrell MD CHIEF COMPLAINT: Confusion, metastatic colon cancer. PLAN: Disposition: Admit MEDICAL DECISION MAKING: The patient is a pleasant 74-year-old gentleman with a past medical history of metastatic colon cancer with metastases to the liver and lung undergoing chemotherapy and radiation therapy, hypertension, hyperlipidemia, CKD who presents to Emergency Department via walk-in accompanied by his who is also his radiation it support specialist, for evaluation of confusion which was noticed today in the setting of the patient missing his scheduled appointment for radiation therapy this morning but with confusion as to why this is occurred. Patient admits that he feels he is mildly confused regarding these details but is not sure why. He reports he was having some pain this morning and did take his prescribed OxyContin but has never had symptoms like this before. He denies any fevers, chills. He denies any productive cough. He denies any nausea or vomiting. On my evaluation the patient is fatigued appearing but in no acute distress, afebrile with heart rate in the 120s and BP 90s/60s. He appears clinically dry. There he is alert and oriented to self, place and situation. He has no focal neurologic deficits. EKG without overt acute ischemia. Chest x-ray demonstrates moderate right pleural effusion area similar to recent PET/CT. Redemonstration of numerous pulmonary metastases described. WBC and platelet within normal limits. H/H similar to prior. Chemistry without metabolic acidosis though bicarbonate is 20 and creatinine is 3.1 with BUN of 55 increased from patient's baseline of creatinine of 2 and BUN in the 20s. LFTs with AST of 64 and alk phos of 180, nonspecific and otherwise LFTs are normal. High-sensitivity troponin 17, within normal limits. Lipase normal. TSH within limits. Procalcitonin is elevated at 7.48 however nonspecific in the setting of acute on chronic renal sufficiency. UA does not suggest infection. CT of the head without contrast was performed and was negative for acute normalities. Given the patient's acute on chronic renal insufficiency CT of the chest and abdomen pelvis were obtained. Findings demonstrate known metastatic disease without acute findings otherwise. Given the patient's confusion in the setting of renal sufficiency the patient and at the bedside agree with plan for admission for further management. Heart rate and BP improving with IVF hydration. Case was [place], [facility] [place] who will evaluate the patient for admission. Further management per admitting team. Triage Nursing notes reviewed and agree them. Prior/external medical records reviewed Vital Signs: reviewed Differential diagnosis: Infection, hypoglycemia, electrolyte abnormalities, overdose, toxicologic, cardiac sources, intracerebral event, neurologic, trauma, as well as other pathologies. ER treatment provided: See below. Diagnostics interpreted by me: ECG: Sinus tachycardia with PACs, LVH, 104 bpm, no overt ST elevation or depression, QTc 418, QRS 76. Cardiac Monitoring: An order for continuous cardiac monitoring was placed and demonstrated Sinus tachycardia with PACs, LVH, 104 bpm. Laboratory studies: See below Imaging studies: See below Consultation(s): Case was discussed [place] Dr. Garcia, [facility] [place], who will evaluate the patient for admission. HPI: The patient is a pleasant 74-year-old gentleman with a past medical history of metastatic colon cancer with metastases to the liver and lung undergoing chemotherapy and radiation therapy, hypertension, hyperlipidemia, CKD who presents to Emergency Department via walk-in accompanied by his who is also his radiation it support specialist, for evaluation of confusion which was noticed today in the setting of the patient missing his scheduled appointment for radiation therapy this morning but with confusion as to why this is occurred. Patient admits that he feels he is mildly confused regarding these details but is not sure why. He reports he was having some pain this morning and did take his prescribed OxyContin but has never had symptoms like this before. He denies any fevers, chills. He denies any productive cough. He denies any nausea or vomiting. ROS: See above HPI for pertinent positives & negatives. A total of 10 systems reviewed and were otherwise negative. VITALS:See Below PHYSICAL EXAMINATION: GENERAL: Awake, alert, fatigued-appearing, in no distress HENT: Normocephalic, atraumatic. Oropharynx with dry mucous membranes and otherwise unremarkable. EYES: Normal conjunctiva. Sclera non-icteric. EOMI. No nystamgus. PEARRL. NECK: Supple. No nuchal rigidity. FROM. No JVD. RESPIRATORY: Clear to auscultation. CARDIAC: Regular rate, normal rhythm. Extremities warm and well perfused. Pulses equal. ABDOMEN: Soft, non-distended. No tenderness to palpation. No rebound or guarding. No masses. MUSCULOSKELETAL: Chest examination reveals no tenderness. The back is symmetrical on inspection without obvious abnormality. There is no CVA tenderness to palpation. No joint edema. LOWER EXTREMITIES: Calves are equal size bilaterally and non-tender. No edema. No discoloration. NEURO: No focal sensory or motor deficits noted. CNII-XII grossly intact. Speech is fluent. 5/5 strength and SILT x 4 extremities. Cerebellar function intact including [id number], alternating palms, [id number]. SKIN: No rash or jaundice noted. Chucky Burrell MD Past Med/Surg History Problem List (Updated 09/30/24 @ 21:31 by Chucky Burrell MD) Acute confusion (Acute) Acute on chronic renal insufficiency (Acute) Adenocarcinoma of sigmoid colon Encephalopathy Colon cancer metastasized to skin (Chronic) Malignant pleural effusion Nasal bleeding Sinusitis Acute lactic acidosis (Acute) Sepsis (Acute) Acute UTI (Acute) Acute urinary retention (Acute) COVID-19 Colon cancer metastasized to liver (Acute) Colon cancer metastasized to lung (Acute) Folliculitis GERD (gastroesophageal reflux disease) CKD (chronic kidney disease) stage 4, GFR 15-29 ml/min (Acute) Cystic kidney disease, acquired Impaired glucose metabolism Chronic rhinitis Hypertension Chronic gout Hyperlipidemia Medical History Pleural effusion, right DVT (deep venous thrombosis) nonocclusive DVT involving left peripheral subclavian vein. Port-A-Cath in place Acute bronchitis Cancer, metastatic to liver Malignant neoplasm of colon, unspecified History of colon cancer GERD (gastroesophageal reflux disease) Vocal cord nodule removed Tachycardia Colonic mass Surgical History H/O right wrist surgery History of surgery Portal vein embolization x 2 - last in January of 2021 History of thoracentesis x 2 - last in February 2024 S/P excision of vocal cord nodule History of colonoscopy History of colon resection COLON CANCER DIAGNOSIS-08/07/2020 REMOVAL OF COLON TUMOR-12/23/2020 History of resection of liver 03/22/2021 Family History Father , 79yo Prostate cancer Mother , 72yo Ovarian cancer Breast cancer Diabetes Anemia Brother Kidney disease Dialysis Prostate cancer Brother Syncopal episodes Brother No problems noted. Brother Natural with unknown cause Other No family history of adverse response to anesthesia No family history of bleeding disorder Social History Smoking Status: Never smoker Second Hand Exposure: No; Do You Dip or Chew Tobacco: No; Hx Alcohol Use: Yes Alcohol type: wine and hard liquor Alcohol Intake Frequency Comment: wine with dinner Hx Substance Use: No Preferred Language: Icelandic Communication Ability: Effective Visual Impairment: No Limitations Hearing Ability: Normal Fiber Optics Technician Required: No Beliefs That Will Affect Care: None marital status: Current Living Situation: Significant Other Current Living Situation Comment: 3 level house current occupational status: retired current occupation: [employer] How many Children do You have: 0 Feels Safe at Home: Yes Seatbelt Use: always Assistive Devices: None Allergies Allergies Allergy/AdvReac Type Severity Reaction Status Date / Time No Known Drug Allergies Allergy Verified 09/30/24 16:12 Home Meds Home Medications Medication Instructions Recorded Confirmed cholecalciferol (vitamin D3) 25 125 mcg PO QAM 05/01/24 09/30/24 mcg (1,000 unit) capsule (Vitamin D3) metoprolol succinate 25 mg 25 mg PO DAILY 05/01/24 09/30/24 tablet,extended release 24 hr Previous Rx's Medication Instructions Recorded tamsulosin 0.4 mg capsule (Flomax) 0.4 mg PO HS #90 caps 11/08/23 allopurinol 100 mg tablet 100 mg PO QAM #90 tabs 02/12/24 amlodipine 5 mg tablet 5 mg PO QAM #90 tabs 03/15/24 pantoprazole 40 mg tablet,delayed 40 mg PO QAM #90 tabs 05/14/24 release simvastatin 10 mg tablet 20 mg (2 x 10 mg) PO DAILY #180 07/17/24 tabs oxycodone 5 mg tablet 5 mg PO Q4H PRN pain #60 tabs 09/19/24 Results & Data (ED) Vital Signs Vital Signs - 24 hr 09/30/24 13:46 09/30/24 14:23 09/30/24 15:03 Temperature 36.8 C Temperature Source Temporal Artery Scan Pulse Rate 129 H 105 H 106 H Pulse Rate [Left Apical] Respiratory Rate 18 18 Respiratory Effort / Characteristics Non-Labored Respiratory Depth Normal Respiratory Pattern Blood Pressure 94/64 L Blood Pressure [Right Arm] Blood Pressure Mean 74 Blood Pressure Mean [Right Arm] Pulse Oximetry 93 96 Oxygen Delivery Method Room Air Room Air Sepsis Recent Fever Within 48 Hours No Sepsis New/Unexplained Change in Mental Status No Sepsis Action Taken by Nursing No Action Required 09/30/24 15:33 09/30/24 15:54 09/30/24 16:00 Temperature Temperature Source Pulse Rate 94 H Pulse Rate [Left Apical] 85 Respiratory Rate 15 16 Respiratory Effort / Characteristics Non-Labored Spontaneous Respiratory Depth Normal Respiratory Pattern Regular Blood Pressure 117/73 Blood Pressure [Right Arm] 117/72 Blood Pressure Mean 92 Blood Pressure Mean [Right Arm] 87 Pulse Oximetry 93 93 Oxygen Delivery Method Room Air Room Air Sepsis Recent Fever Within 48 Hours Sepsis New/Unexplained Change in Mental Status Sepsis Action Taken by Nursing 09/30/24 16:15 09/30/24 16:42 09/30/24 16:57 Temperature Temperature Source Pulse Rate 88 91 H 95 H Pulse Rate [Left Apical] Respiratory Rate 15 16 Respiratory Effort / Characteristics Respiratory Depth Respiratory Pattern Blood Pressure Blood Pressure [Right Arm] Blood Pressure Mean Blood Pressure Mean [Right Arm] Pulse Oximetry 94 93 95 Oxygen Delivery Method Room Air Room Air Room Air Sepsis Recent Fever Within 48 Hours Sepsis New/Unexplained Change in Mental Status Sepsis Action Taken by Nursing 09/30/24 17:30 09/30/24 17:45 09/30/24 17:51 Temperature Temperature Source Pulse Rate 91 H 91 H Pulse Rate [Left Apical] Respiratory Rate 17 13 Respiratory Effort / Characteristics Respiratory Depth Respiratory Pattern Blood Pressure 129/78 Blood Pressure [Right Arm] Blood Pressure Mean 91 Blood Pressure Mean [Right Arm] Pulse Oximetry 95 96 Oxygen Delivery Method Room Air Room Air Sepsis Recent Fever Within 48 Hours Sepsis New/Unexplained Change in Mental Status Sepsis Action Taken by Nursing 09/30/24 18:00 09/30/24 18:37 Temperature Temperature Source Pulse Rate 94 H 107 H Pulse Rate [Left Apical] Respiratory Rate 20 Respiratory Effort / Characteristics Respiratory Depth Respiratory Pattern Blood Pressure 137/83 Blood Pressure [Right Arm] Blood Pressure Mean 101 Blood Pressure Mean [Right Arm] Pulse Oximetry 96 Oxygen Delivery Method Room Air Sepsis Recent Fever Within 48 Hours Sepsis New/Unexplained Change in Mental Status Sepsis Action Taken by Nursing Laboratory Data Attestation: I reviewed the patient's lab results. 09/30/24 15:11 09/30/24 15:11 Lab Results 09/30/24 09/30/24 Range/Units 15:11 16:15 WBC 9.15 (4.8-10.8) K/ul RBC 3.24 L (4.70-6.10) M/uL Hgb 9.9 L (14.0-18.0) g/dl Hct 30.0 L (42.0-52.0) % MCV 92.6 (80.0-100.0) fL MCH 30.6 (25.0-34.0) pg MCHC 33.0 (32.0-36.0) g/dL RDW Std Deviation 54.3 H (36.4-46.3) fL RDW Coeff of Maximilian 16.0 H (11.5-14.5) % Plt Count 256 (130-400) K/uL MPV 9.8 (9.4-12.4) fL Immature Gran % (Auto) 0.5 % Neut % (Auto) 84.0 % Lymph % (Auto) 1.7 % Labette % (Auto) 13.6 % Eos % (Auto) 0.1 % Baso % (Auto) 0.1 % Neut # (Auto) 7.68 H (1.40-6.50) K/uL Lymph # (Auto) 0.16 L (1.20-3.40) K/uL Labette # (Auto) 1.24 H (0.11-0.59) K/uL Eos # (Auto) 0.01 (0.00-0.50) K/uL Baso # (Auto) 0.01 (0.00-0.20) K/uL Immature Gran # (Auto) 0.05 (0.01-0.20) K/uL PT 11.4 (9.0-12.0) Seconds INR 1.1 (0.9-1.1) Sodium 133 L (136-145) mmol/L Potassium 3.8 (3.5-5.1) mmol/L Chloride 100 (98-107) mmol/L Carbon Dioxide 20 L (21-32) mmol/L Anion Gap 13 H (3-11) BUN 55 H (6-23) mg/dl Creatinine 3.13 H (0.6-1.4) mg/dl Est Cr Clr Drug Dosing Not Reportable eGFR 20.21 BUN/Creatinine Ratio 17.6 (10-20) Glucose 165 H (70-99(Fasting)) mg/dl Calcium 8.5 L (8.6-10.3) mg/dl Phosphorus 2.9 (2.5-4.9) mg/dl Magnesium 2.6 H (1.7-2.4) mg/dl Total Bilirubin 0.8 (0.2-1.0) mg/dl AST 64 H (13-39) U/L ALT 26 (7-52) U/L Alkaline Phosphatase 180 H (34-104) U/L Troponin I High Sens 17.0 (0-20) pg/ml Total Protein 7.5 (6.0-8.3) gm/dl Albumin 2.9 L (3.4-5.0) gm/dl Globulin 4.6 H (2.5-4.0) gm/dl Albumin/Globulin Ratio 0.6 L (0.9-2) Lipase 18 (11-82) U/L Procalcitonin 7.48 H (0-0.5) ng/ml TSH 1.492 (0.300-4.500) uIu/ml Urine Color Yellow Urine Appearance Clear (Clear) Urine pH 5.5 (4.5-7.5) Ur Specific [place] 1.012 (1.000-1.030) Urine Protein 2+ H (Negative) Urine Glucose (UA) Negative (Negative) Urine Ketones Trace H (Negative) Urine Blood 2+ H (Negative) Urine Nitrite Negative (Negative) Urine Bilirubin Negative (Negative) Urine Urobilinogen Negative (Negative) Ur Leukocyte Esterase Negative (Negative) Urine WBC (Auto) 0-5 (0-5) /hpf Urine RBC (Auto) 0-2 (0-2) /hpf U Hyaline Cast (Auto) 3-5 H (0-2) /lpf U Epithel Cells (Auto) 3-5 H (0-2) /hpf Urine Bacteria (Auto) None Seen (None Seen) Administered Medications Lactated Ringer's (Lr) 1,000 mls @ 80 mls/hr IV .[id number] WALTER Stop: 10/01/24 07:29 Last Admin: 09/30/24 20:30 Dose: 80 mls/hr Documented By: ANGELA Discontinued Medications Sodium Chloride (Nss) 500 mls @ 999 mls/hr IV .Q31M ONE Stop: 09/30/24 15:08 Last Infusion: 09/30/24 16:20 Dose: Infused Documented By: Admin: 09/30/24 15:29 Dose: 999 mls/hr Documented By: ANGELA Lactated Ringer's (Lr) 500 mls @ 999 mls/hr IV .Q31M ONE Stop: 09/30/24 19:25 Last Infusion: 09/30/24 20:30 Dose: Infused Documented By: Admin: 09/30/24 19:55 Dose: 999 mls/hr Documented By: RADHA Imaging Data Radiologist's Impression: Chest X-Ray 09/30/24 14:15 XR chest 1V portable CLINICAL HISTORY: Altered mental status. COMPARISON STUDY: Chest radiograph March 22, 2024. PET/CT September 13, 2024. FINDINGS: A right internal jugular Kbrrbw-q-Xgch in place. There is no pneumothorax. A moderate right pleural effusion is similar to prior PET/CT. Numerous pulmonary masses and nodules are also similar to prior PET/CT. There is pulmonary vascular congestion. Cardiomediastinal silhouette is stable. IMPRESSION: 1. Moderate right pleural effusion, similar to prior PET/CT. 2. Redemonstration of numerous pulmonary metastases. 3. Pulmonary vascular congestion. 4. No pneumothorax. ACT 112: Negative or not required by law. Electronically signed by: Joss Romero M.D. 09/30/2024 2:[address] 09/30/24 14:39 CT OF THE HEAD WITHOUT CONTRAST CLINICAL HISTORY: Confusion. Metastatic colon cancer. COMPARISON STUDY: No previous studies for comparison. CT DOSE: 962.98 mGy.cm TECHNIQUE: Helical axial images of the head were obtained without IV contrast. Automated exposure control was utilized for the study. A dose lowering technique was utilized adhering to the principles of ALARA. FINDINGS: No acute intracranial hemorrhage, midline shift or mass effect is present. The ventricular system is unremarkable. The basal cisterns are patent. No extra-axial collections are present. There are no findings to suggest acute dural sinus thrombosis or acute territorial infarct. No significant calvarial abnormalities are present. Visualized portions of the sinuses and mastoid air cells are clear. IMPRESSION: 1. No acute intracranial findings. 2. No intracranial metastases identified on unenhanced head CT. ACT 112: Negative or not required by law. Electronically signed by: Joss Romero M.D. 09/30/2024 3:42 PM Abdomen/Pelvis CT 09/30/24 16:57 EXAMINATION: Abdomen and pelvis CT without CLINICAL HISTORY: Altered mental status, metastatic cancer, acute on chronic renal insufficiency PRIORS: None TECHNIQUE: Contiguous axial images were obtained through the abdomen and pelvis without the use of intravenous contrast. Sagittal and coronal reformations are supplied. FINDINGS: Examination is limited without the use of intravenous contrast. Allowing for this, right lateral chest, ribs and abdominal wall masses are present, some within the ribs with diffuse right lateral upper abdominal wall and flank edema. Soft tissue mass present at the level of the right kidney, within the subcutaneous tissues, measuring 2.8 cm. Large right pleural effusion within the xnohc-as-kgoc with right lung base airspace consolidation and multiple left lung base pulmonary nodules. Chest CT is dictated under separate heading. The noncontrast enhanced liver shows surgical clips along the right lobe of the liver. No ascites. Noncontrast enhanced pancreas, spleen, stomach, and adrenals are morphologically unremarkable. Bilateral kidneys contain multiple low-attenuation masses, not further characterized. No adenopathy in the retroperitoneum. No hydronephrosis. Moderate atherosclerotic disease of the aorta noted. Urinary bladder distends normally. Prostate size is mildly enlarged. No inguinal adenopathy. Surgical anastomosis present involving the colon in the pelvis with no surrounding fluid or gas. A large amount of formed stool and gas present in the ascending and transverse colon. No pericolonic inflammatory change. No small bowel obstruction. In bone windows, moderate osseous demineralization noted. No acute lumbar spine fracture or suspicious osseous abnormality. IMPRESSION: 1. Right lateral rib and chest wall soft tissue masses with osseous erosion and Large right pleural effusion and pulmonary masses within the cjfse-ll-mwfs. 2. Postsurgical change of the liver. 3. Multiple hepatic masses, not further characterized. 4. No ascites or adenopathy in the abdomen. Electronically signed by Sachi Shah 09-30-2024 5:[address] 09/30/24 16:57 EXAMINATION: Chest CT without CLINICAL HISTORY: Confusion, metastatic cancer, pleural effusion TECHNIQUE: Contiguous axial images were obtained through the chest without the use of intravenous contrast. Sagittal and coronal reformations are supplied. FINDINGS: The chest is well-expanded. Innumerable bilateral pulmonary masses are present. For example, the largest is present within the left lung, lingular segment measuring 7.0 cm measuring soft tissue attenuation, with well-defined borders. Large right pleural effusion is present with loculation. Mediastinal and possible hilar adenopathy is present. Trachea and mainstem bronchi are patent. Heart size within normal limits. No axillary or subpleural adenopathy. Right Mediport catheter present in the right chest wall with distal tip at the atriocaval junction. Multiple large masses present within the right lateral ribs with bony erosion and subcutaneous edema. Advanced osseous demineralization noted. No compression fracture of the thoracic spine. IMPRESSION: Innumerable pulmonary masses, representing metastatic disease with adenopathy in the chest, loculated right pleural effusion and right rib and chest wall metastases. Close clinical follow-up suggested. Please correlate with known primary malignancy. ACT 112: Positive. There are findings on this examination that require communication between the performing entity and the patient following Patient Test Result Information Act ([place] ACT 112) guidelines. Electronically signed by Sachi Shah 09-30-2024 5:54 PM Discharge Plan Visit Data Chief Complaint: Confusion Stated Complaint: CONFUSION ED Provider: Chucky Burrell Discharge Problem: Acute confusion, Acute on chronic renal insufficiency, Colon cancer metastasized to lung, Colon cancer metastasized to liver Patient Disposition: Admitted As Inpatient Discharge Instructions Interventions: ED Discharge Assessment Last Done: 09/30/24 20:20
[2024-09-30 15:41] LABS: Alanine Aminotransferase 26 U/L (7-52); Albumin Globulin Ratio 0.6 (0.9-2); Albumin Level 2.9 gm/dl (3.4-5.0); Alkaline Phosphatase 180 U/L (34-104); Anion Gap 13 (3-11); Aspartate Aminotransferase 64 U/L (13-39); BUN Creatinine Ratio 17.6 (10-20); Bilirubin,Total 0.8 mg/dl (0.2-1.0); Blood Urea Nitrogen 55 mg/dl (6-23); Calcium 8.5 mg/dl (8.6-10.3); Carbon Dioxide 20 mmol/L (21-32); Chloride 100 mmol/L (98-107); Globulin 4.6 gm/dl (2.5-4.0); Glucose 165 mg/dl (70-99(Fasting)); Lipase 18 U/L (11-82); Magnesium 2.6 mg/dl (1.7-2.4); Phosphorus 2.9 mg/dl (2.5-4.9); Potassium 3.8 mmol/L (3.5-5.1); Sodium 133 mmol/L (136-145); Total Protein 7.5 gm/dl (6.0-8.3)
--- NOTE | 2024-09-30 15:44 | CT Scan Report ---
CT OF THE HEAD WITHOUT CONTRAST CLINICAL HISTORY: Confusion. Metastatic colon cancer. COMPARISON STUDY: No previous studies for comparison. CT DOSE: 962.98 mGy.cm TECHNIQUE: Helical axial images of the head were obtained without IV contrast. Automated exposure con trol was utilized for the study. A dose lowering technique was utilized adhering to the principles o f ALARA. FINDINGS: No acute intracranial hemorrhage, midline shift or mass effect is present. The ventricular system is unremarkable. The basal cisterns are patent. No extra-axial collections are present. There are no findings to suggest acute dural sinus thrombosis or acute territorial infarct. No significant calvarial abnormalities are present. Visualized portions of the sinuses and mastoid air cells are nilda ar. IMPRESSION: 1. No acute intracranial findings. 2. No intracranial metastases identified on unenhanced head CT. ACT 112: Negative or not required by law. Electronically signed by: Joss Romero M.D. 09/30/2024 3:42 PM
[2024-09-30 15:49] LABS: INR 1.1 (0.9-1.1); Prothrombin Time 11.4 Seconds (9.0-12.0)
[2024-09-30 15:55] LABS: Thyroid Stimulating Hormone 1.492 uIu/ml (0.300-4.500)
[2024-09-30 16:26] LABS: Appearance Urine Clear (Clear); Bacteria Urine Automated None Seen (None Seen); Bilirubin Urine Negative (Negative); Blood Urine 2+ (Negative); Color Urine Yellow; Glucose Urine UA Negative (Negative); Ketones Urine Trace (Negative); Leukocyte Esterase Urine Negative (Negative); Nitrite Urine Negative (Negative); Protein Urine 2+ (Negative); RBC Urine Automated 0-2 /hpf (0-2); Specific Gravity Urine 1.012 (1.000-1.030); Urobilinogen Urine Negative (Negative); WBC Urine Automated 0-5 /hpf (0-5); pH Urine 5.5 (4.5-7.5)
--- NOTE | 2024-09-30 17:38 | History & Physical Report ---
Date of Service September 30, 2024 Assessment & Plan (1) Encephalopathy: Plan: Worsening confusion and dizziness x 1 month, no h/o dementia; ? 2/2 BEN w/ volume contraction - Admit - CBC RBC 24, H&H 9.9/30, RDW 51.3, PT/INR WNL, CMP Na 133, CO2 20, AG 13, calcium 8.5, magnesium 2.6, AST 64, alk phos 180, albumin 2.9, procalcitonin 7.48 - BUN 55, creatinine 3.13; baseline Cr around 2, BUN around 20 - UA without signs of infection - CXR moderate right pleural effusion (similar to prior PET/CT), redemonstration of numerous pulmonary metastasis, pulmonary vascular congestion - Head CT no acute intracranial findings, no intracranial metastases identified - CTAP right lateral rib and chest wall soft tissue masses, osseous erosions, large right pleural effusion pulmonary masses, postsurgical changes of the liver, multiple hepatic masses, no ascites or adenopathy in abdomen - CT chest with innumerable pulmonary masses representing metastatic disease and adenopathy in the chest, loculated right pleural effusion and right rib and chest wall metastasis. - EKG appearing to be sinus tachycardia rate around 105 - TSH 1.492 - Ammonia pending - Even though no leukocytosis, procalcitonin elevated -> Pending blood cx (2) BEN (acute kidney injury): Plan: Baseline Cr around 2, baseline BUN around 20; likely prerenal - Cr increased 3.13, BUN elevated to 55 - UA without signs of infection - Given 500 mL fluids (NSS) - BMP a.m. - Bladder scan as needed - Hold nephrotoxic agents to improving renal function- allopurinol - Continue to promote oral hydration + IV fluid resuscitation with 500mL bolus LR then additional 1L infusion (3) Adenocarcinoma of sigmoid colon: Plan: Initial diagnosis colon cancer 08/07/2020; missed appointment today (09/30) - Follows with Dr. Swan, [facility] oncology -Course: Received 6 cycles of FOLFIRI (08/2020-11/2020), FOLFOX with dose reduction oxaliplatin (04/2021-08/2022), Lonsurf 40 mg twice daily every 28 days, bevacizumab 5 mg/kg every 2 weeks-> November 2023 adjusted to Regorafenib which was ultimately discontinued; receiving palliative radiation treatment - Current regimen (09/17/2024) - follows with radiation/oncology, discontinued Lonsurf and bevacizumab - With identified metastasis to lung, liver, skin - Tumor resection of colon 12/23/2020 - Affected aspect of liver resected 03/2021 (4) Hypertension: Plan: Stable on admission - Amlodipine 5 mg every morning, metoprolol succinate 25 mg daily (5) CKD (chronic kidney disease) stage 4, GFR 15-29 ml/min: Plan: H/o stage IV CKD, baseline Cr ~2, follows w/ Dr. Carl Vicente - Secondary to HTN and multiple bilateral renal cysts per most recent nephrology note (02/06/2024) - Evidence of BEN on admission, see #2 - Avoid NSAIDs - Renally dose medications - BMP am - UA without signs of infection, but with evidence of proteinuria Plan HLD- Simvastatin 20mg daily BPH- Tamsulosin 0.4 mg nightly Dispo: Admit Diet: Regular VTE Prophylaxis: Heparin Code: Conditional - Cardiac intervention OK Admission and Anticipated Discharge Date Admission Date: 09/30/2024 History of Present Illness Chief Complaint: Confusion Primary Care Provider: Zaheer Cortez MD 74-year-old male presenting for onset dizziness x 1 month. ED course: CBC RBC 3.24, H&H 10.9/30; PT/INR WNL; CMP Na 133, carbon dioxide 20, anion gap 13, BUN 55, creatinine 3.13, glucose 165, AST 64, alk phos 180, albumin 2.9, globulin 4.6; calcium 8.5, magnesium 2.6; procalcitonin 7.48; UA 2+ protein, ketones, 2+ blood, no presence of infection; CXR moderate right pleural effusion (similar to prior PET/CT), redemonstration of numerous pulmonary metastases, pulmonary vascular congestion; head CT without acute intracranial findings or intracranial metastases; pending CTAP and CT chest read; EKG appearing to be sinus tach rate around 105.; Provided with NSS 500 mL in ED. Patient is a very pleasant 74-year-old male PMHx stage IV colon cancer with mets to liver and lungs, GERD, CKD stage IV, HTN, and HLD presenting for confusion and dizziness x 1 month. Patient's is present in room at time of visit and helps provide history. Patient notes that approximately 1 to 2 months ago he started to have slight off-balance feeling when standing too quickly, which resolved when sitting. Additionally, today (09/30) he was to have radiation appointment. States that he called his to tell him that he took 2 oxycodone and that he was getting ready to head to his appointment. However, his states that the patient never actually went to his appointment. Mr. Crain states that he made the conscious decision not to go because he did not like the radiation treatment the day prior to. States that he does not really feel confused, and that this was the first time that he missed an appointment. Denies out right abdominal pain, just states that he is having some discomfort throughout his abdomen stating that it is "disconnected". Has had recent decrease of appetite as noted per the patient's . Has shortness of breath with exertion only and this has been ongoing for a year. Denying fever/chills, chest pain, new shortness of breath, abdominal pain, N/V/D/C, numbness/tingling, or LUTS. Did not take a.m. medications. Most recent chemotherapy was approximately 2 weeks ago. Please see Dr. Garcia's attestation for adjustments/additions to treatment plan . Allergies Allergy/AdvReac Type Severity Reaction Status Date / Time No Known Drug Allergies Allergy Verified 09/30/24 16:12 Home Medications Medication Instructions Recorded Confirmed Type tamsulosin 0.4 mg capsule (Flomax) 0.4 mg PO HS #90 caps 11/08/23 09/30/24 Rx allopurinol 100 mg tablet 100 mg PO QAM #90 tabs 02/12/24 09/30/24 Rx amlodipine 5 mg tablet 5 mg PO QAM #90 tabs 03/15/24 09/30/24 Rx cholecalciferol (vitamin D3) 25 125 mcg PO QAM 05/01/24 09/30/24 History mcg (1,000 unit) capsule (Vitamin D3) metoprolol succinate 25 mg 25 mg PO DAILY 05/01/24 09/30/24 History tablet,extended release 24 hr pantoprazole 40 mg tablet,delayed 40 mg PO QAM #90 tabs 05/14/24 09/30/24 Rx release simvastatin 10 mg tablet 20 mg (2 x 10 mg) PO DAILY #180 07/17/24 09/30/24 Rx tabs oxycodone 5 mg tablet 5 mg PO Q4H PRN pain #60 tabs 09/19/24 09/30/24 Rx Past Med/Surg History Problem List (Updated 09/30/24 @ 18:27 by Chucky Burrell MD) Acute on chronic renal insufficiency (Acute) Adenocarcinoma of sigmoid colon Encephalopathy Colon cancer metastasized to skin (Chronic) Malignant pleural effusion Nasal bleeding Sinusitis Acute lactic acidosis (Acute) Sepsis (Acute) Acute UTI (Acute) Acute urinary retention (Acute) COVID-19 Colon cancer metastasized to liver (Acute) Colon cancer metastasized to lung (Acute) Folliculitis GERD (gastroesophageal reflux disease) CKD (chronic kidney disease) stage 4, GFR 15-29 ml/min (Acute) Cystic kidney disease, acquired Impaired glucose metabolism Chronic rhinitis Hypertension Chronic gout Hyperlipidemia Medical History Pleural effusion, right DVT (deep venous thrombosis) nonocclusive DVT involving left peripheral subclavian vein. Port-A-Cath in place Acute bronchitis Cancer, metastatic to liver Malignant neoplasm of colon, unspecified History of colon cancer GERD (gastroesophageal reflux disease) Vocal cord nodule removed Tachycardia Colonic mass Surgical History H/O right wrist surgery History of surgery Portal vein embolization x 2 - last in January of 2021 History of thoracentesis x 2 - last in February 2024 S/P excision of vocal cord nodule History of colonoscopy History of colon resection COLON CANCER DIAGNOSIS-08/07/2020 REMOVAL OF COLON TUMOR-12/23/2020 History of resection of liver 03/22/2021 Family History Father , 79yo Prostate cancer Mother , 72yo Ovarian cancer Breast cancer Diabetes Anemia Brother Kidney disease Dialysis Prostate cancer Brother Syncopal episodes Brother No problems noted. Brother Natural with unknown cause Other No family history of adverse response to anesthesia No family history of bleeding disorder Social History Smoking Status: Never smoker Second Hand Exposure: No; Do You Dip or Chew Tobacco: No; Hx Alcohol Use: Yes Alcohol type: wine and hard liquor Alcohol Intake Frequency Comment: wine with dinner Hx Substance Use: No Preferred Language: Tajik Communication Ability: Effective Visual Impairment: No Limitations Hearing Ability: Normal [employer] President Required: No Beliefs That Will Affect Care: None marital status: Current Living Situation: Significant Other Current Living Situation Comment: 3 level house current occupational status: retired current occupation: [employer] How many Children do You have: 0 Feels Safe at Home: Yes Seatbelt Use: always Assistive Devices: None Review of Systems Review of Systems: All systems reviewed & are unremarkable except as noted in Subjective Physical Exam Physical Exam: General: No acute distress Skin: Warm and dry, R flank w/ lesion that is skin colored and dry Head: Normocephalic, atraumatic Eyes: PERRL, conjunctivae clear, sclera non-icteric ENT: External ear and ear canal without swelling; nose atraumatic; good dentition Neck: Supple, no LAD Cardio: Tachycardia, regular rhythm, no M/G/R, S1 and S2 normal Resp: No respiratory distress, Lungs CTA in all lobes bilaterally, no wheezes, rales, or rhonchi; port left chest Abdomen: Soft, symmetric, nontender; surgical scars noted; no distention; No masses or hepatosplenomegaly MSK: No deformities, pulses palpable and equal; no edema. Neuro: Awake, alert; Sensation intact bilaterally; CN intact Psych: Appropriate mood and affect; good judgement and insight. is present in time the room at time of visit. Results & Data Results & Data Vital Signs (Past 12 Hours) Vital Signs Temp Pulse Pulse Resp BP BP Pulse Ox 09/30/24 16:57 95 H 16 95 09/30/24 16:42 91 H 15 93 09/30/24 16:15 88 94 09/30/24 16:00 117/73 09/30/24 15:54 94 H 16 93 09/30/24 15:33 85 15 117/72 93 09/30/24 15:03 106 H 18 96 09/30/24 14:23 105 H 09/30/24 13:46 36.8 C 129 H 18 94/64 L 93 O2 Del Method 09/30/24 16:57 Room Air 09/30/24 16:42 Room Air 09/30/24 16:15 Room Air 09/30/24 16:00 09/30/24 15:54 Room Air 09/30/24 15:33 Room Air 09/30/24 15:03 Room Air 09/30/24 14:23 09/30/24 13:46 Room Air Laboratory Results 09/30/24 09/30/24 16:15 15:11 WBC 9.15 RBC 3.24 L Hgb 9.9 L Hct 30.0 L MCV 92.6 MCH 30.6 MCHC 33.0 RDW Std Deviation 54.3 H RDW Coeff of Maximilian 16.0 H Plt Count 256 MPV 9.8 Immature Gran % (Auto) 0.5 Neut % (Auto) 84.0 Lymph % (Auto) 1.7 Sullivan % (Auto) 13.6 Eos % (Auto) 0.1 Baso % (Auto) 0.1 Neut # (Auto) 7.68 H Lymph # (Auto) 0.16 L Sullivan # (Auto) 1.24 H Eos # (Auto) 0.01 Baso # (Auto) 0.01 Immature Gran # (Auto) 0.05 PT 11.4 INR 1.1 Sodium 133 L Potassium 3.8 Chloride 100 Carbon Dioxide 20 L Anion Gap 13 H BUN 55 H Creatinine 3.13 H Est Cr Clr Drug Dosing Not Reportable eGFR 20.21 BUN/Creatinine Ratio 17.6 Glucose 165 H Calcium 8.5 L Phosphorus 2.9 Magnesium 2.6 H Total Bilirubin 0.8 AST 64 H ALT 26 Alkaline Phosphatase 180 H Troponin I High Sens 17.0 Total Protein 7.5 Albumin 2.9 L Globulin 4.6 H Albumin/Globulin Ratio 0.6 L Lipase 18 Procalcitonin 7.48 H TSH 1.492 Urine Color Yellow Urine Appearance Clear Urine pH 5.5 Ur Specific Jackson 1.012 Urine Protein 2+ H Urine Glucose (UA) Negative Urine Ketones Trace H Urine Blood 2+ H Urine Nitrite Negative Urine Bilirubin Negative Urine Urobilinogen Negative Ur Leukocyte Esterase Negative Urine WBC (Auto) 0-5 Urine RBC (Auto) 0-2 U Hyaline Cast (Auto) 3-5 H U Epithel Cells (Auto) 3-5 H Urine Bacteria (Auto) None Seen Diagnostic Findings Chest X-Ray 09/30/24 14:15 XR chest 1V portable CLINICAL HISTORY: Altered mental status. COMPARISON STUDY: Chest radiograph March 22, 2024. PET/CT September 13, 2024. FINDINGS: A right internal jugular [id number] in place. There is no pneumothorax. A moderate right pleural effusion is similar to prior PET/CT. Numerous pulmonary masses and nodules are also similar to prior PET/CT. There is pulmonary vascular congestion. Cardiomediastinal silhouette is stable. IMPRESSION: 1. Moderate right pleural effusion, similar to prior PET/CT. 2. Redemonstration of numerous pulmonary metastases. 3. Pulmonary vascular congestion. 4. No pneumothorax. ACT 112: Negative or not required by law. Electronically signed by: Joss Romero M.D. 09/30/2024 2:[address] 09/30/24 14:39 CT OF THE HEAD WITHOUT CONTRAST CLINICAL HISTORY: Confusion. Metastatic colon cancer. COMPARISON STUDY: No previous studies for comparison. CT DOSE: 962.98 mGy.cm TECHNIQUE: Helical axial images of the head were obtained without IV contrast. Automated exposure control was utilized for the study. A dose lowering technique was utilized adhering to the principles of ALARA. FINDINGS: No acute intracranial hemorrhage, midline shift or mass effect is present. The ventricular system is unremarkable. The basal cisterns are patent. No extra-axial collections are present. There are no findings to suggest acute dural sinus thrombosis or acute territorial infarct. No significant calvarial abnormalities are present. Visualized portions of the sinuses and mastoid air cells are clear. IMPRESSION: 1. No acute intracranial findings. 2. No intracranial metastases identified on unenhanced head CT. ACT 112: Negative or not required by law. Electronically signed by: Joss Romero M.D. 09/30/2024 3:42 PM Abdomen/Pelvis CT 09/30/24 16:57 EXAMINATION: Abdomen and pelvis CT without CLINICAL HISTORY: Altered mental status, metastatic cancer, acute on chronic renal insufficiency PRIORS: None TECHNIQUE: Contiguous axial images were obtained through the abdomen and pelvis without the use of intravenous contrast. Sagittal and coronal reformations are supplied. FINDINGS: Examination is limited without the use of intravenous contrast. Allowing for this, right lateral chest, ribs and abdominal wall masses are present, some within the ribs with diffuse right lateral upper abdominal wall and flank edema. Soft tissue mass present at the level of the right kidney, within the subcutaneous tissues, measuring 2.8 cm. Large right pleural effusion within the [id number] with right lung base airspace consolidation and multiple left lung base pulmonary nodules. Chest CT is dictated under separate heading. The noncontrast enhanced liver shows surgical clips along the right lobe of the liver. No ascites. Noncontrast enhanced pancreas, spleen, stomach, and adrenals are morphologically unremarkable. Bilateral kidneys contain multiple low-attenuation masses, not further characterized. No adenopathy in the retroperitoneum. No hydronephrosis. Moderate atherosclerotic disease of the aorta noted. Urinary bladder distends normally. Prostate size is mildly enlarged. No inguinal adenopathy. Surgical anastomosis present involving the colon in the pelvis with no surrounding fluid or gas. A large amount of formed stool and gas present in the ascending and transverse colon. No pericolonic inflammatory change. No small bowel obstruction. In bone windows, moderate osseous demineralization noted. No acute lumbar spine fracture or suspicious osseous abnormality. IMPRESSION: 1. Right lateral rib and chest wall soft tissue masses with osseous erosion and Large right pleural effusion and pulmonary masses within the [id number]. 2. Postsurgical change of the liver. 3. Multiple hepatic masses, not further characterized. 4. No ascites or adenopathy in the abdomen. Electronically signed by Sachi Shah 09-30-2024 5:[address] 09/30/24 16:57 EXAMINATION: Chest CT without CLINICAL HISTORY: Confusion, metastatic cancer, pleural effusion TECHNIQUE: Contiguous axial images were obtained through the chest without the use of intravenous contrast. Sagittal and coronal reformations are supplied. FINDINGS: The chest is well-expanded. Innumerable bilateral pulmonary masses are present. For example, the largest is present within the left lung, lingular segment measuring 7.0 cm measuring soft tissue attenuation, with well-defined borders. Large right pleural effusion is present with loculation. Mediastinal and possible hilar adenopathy is present. Trachea and mainstem bronchi are patent. Heart size within normal limits. No axillary or subpleural adenopathy. Right Mediport catheter present in the right chest wall with distal tip at the atriocaval junction. Multiple large masses present within the right lateral ribs with bony erosion and subcutaneous edema. Advanced osseous demineralization noted. No compression fracture of the thoracic spine. IMPRESSION: Innumerable pulmonary masses, representing metastatic disease with adenopathy in the chest, loculated right pleural effusion and right rib and chest wall metastases. Close clinical follow-up suggested. Please correlate with known primary malignancy. ACT 112: Positive. There are findings on this examination that require communication between the performing entity and the patient following Patient Test Result Information Act ([place] ACT 112) guidelines. Electronically signed by Sachi Shah 09-30-2024 5:54 PM Code Status & VTE Plan Code Status Full Supervising Physician Co-Signing Physician Notes Patient seen and examined, chart reviewed, case discussed with Giancarlo Rodriguez PA-C and I agree with the assessment and plan as above except as otherwise noted Labs and images reviewed If any seen at the bedside with his present. He reports that he did not go to his radiation therapy as while holding his arms up the session prior had had some more discomfort, and felt like he did need a bit of a break from treatments today. He reports he does not feel confused at time of admission, but has also not been eating and drinking well. Does have an BEN which he acknowledges is probably from not eating and drinking very well recently. He reports that he does not feel anything like when he had sepsis. He has not had fevers chills or sweats. No productive cough. No respiratory symptoms. No diarrhea/constipation. Altered mental status Reported although patient denies this and appears mentating at his baseline on admission. CThead was normal, no evidence of brain mets. Ammonia is normal. May have had some transient confusion due to volume contraction metabolic encephalopathy versus infectious. He is afebrile and does not show any localizing infectious symptoms however does have a procalcitonin of 7.48 which is slightly disproportionate even despite his renal dysfunction. CTchest reviewed, no no acute infectious findings are noted. CTA/P with multiple hepa tic masses, large pleural effusion, pulmonary masses but no adenopathy or acute infectious findings are noted. As he has not had fever chills sweats or any infectious symptoms we will continue to monitor at this time low threshold to start antibiotic should any symptoms develop, he become febrile, or if any acute worsening overnight. BEN likely with decreased intake/prerenal. He has a mild increased anion gap metabolic acidosis. IV fluids have been ordered. He does not appear septic. Trend BMP daily. Colorectal adenocarcinoma with metastasis to lung and liver Lonsurf 09/2022, bevacizumab 12/20/2023 added. Treated with regorafenib 11/2023. Thoracentesis/09/2024 with malignant cells consistent with metastatic adenocarcinoma. 02/23/2024 plan to restart Lonsurf and Avastin. PET/CT 04/07 with significantly worsening neoplastic disease bulk located in the thorax. Current treatment with Avastin/trifluridine/topiricil w/ radiation tx Missed RIGHT lung rad/onc appointment today, Reports he has had some discomfort with his appointments and felt like he needed a break No hypoxia. Mild tachycardia PG Care Time/CCT Total # of Minutes Spent Total Time Spent with Patient: Total time spent is greater than 50% in coordination of care (as documented) at patient's floor/unit and/or counseling patient: Coding Level of Care Code 48894 INT INP/OBS CARE 3/75MIN Diagnoses Encephalopathy G93.40 BEN (acute kidney injury) N17.9 Adenocarcinoma of sigmoid colon C18.7 Hypertension I10 CKD (chronic kidney disease) stage 4, GFR 15-29 ml/min N18.4 Time Spent (min) 80
--- NOTE | 2024-09-30 17:54 | CT Scan Report ---
EXAMINATION: Abdomen and pelvis CT without CLINICAL HISTORY: Altered mental status, metastatic cancer, acute on chronic renal insufficiency PRIORS: None TECHNIQUE: Contiguous axial images were obtained through the abdomen and pelvis without the use of intravenous contrast. Sagittal and coronal reformations are supplied. FINDINGS: Examination is limited without the use of intravenous contrast. Allowing for this, right lateral chest, ribs and abdominal wall masses are present, some within the ribs with diffuse right lateral upper abdominal wall and flank edema. Soft tissue mass present at the level of the right kidney, within the subcutaneous tissues, measuring 2.8 cm. Large right pleural effusion within the [id number] with right lung base airspace consolidation and multiple left lung base pulmonary nodules. Chest CT is dictated under separate heading. The noncontrast enhanced liver shows surgical clips along the right lobe of the liver. No ascites. Noncontrast enhanced pancreas, spleen, stomach, and adrenals are morphologically unremarkable. Bilateral kidneys contain multiple low-attenuation masses, not further characterized. No adenopathy in the retroperitoneum. No hydronephrosis. Moderate atherosclerotic disease of the aorta noted. Urinary bladder distends normally. Prostate size is mildly enlarged. No inguinal adenopathy. Surgical anastomosis present involving the colon in the pelvis with no surrounding fluid or gas. A large amount of formed stool and gas present in the ascending and transverse colon. No pericolonic inflammatory change. No small bowel obstruction. In bone windows, moderate osseous demineralization noted. No acute lumbar spine fracture or suspicious osseous abnormality. IMPRESSION: 1. Right lateral rib and chest wall soft tissue masses with osseous erosion and Large right pleural effusion and pulmonary masses within the [id number]. 2. Postsurgical change of the liver. 3. Multiple hepatic masses, not further characterized. 4. No ascites or adenopathy in the abdomen. Electronically signed by Sachi Shah 09-30-2024 5:54 PM
--- NOTE | 2024-09-30 17:58 | CT Scan Report ---
EXAMINATION: Chest CT without CLINICAL HISTORY: Confusion, metastatic cancer, pleural effusion TECHNIQUE: Contiguous axial images were obtained through the chest without the use of intravenous contrast. Sagittal and coronal reformations are supplied. FINDINGS: The chest is well-expanded. Innumerable bilateral pulmonary masses are present. For example, the largest is present within the left lung, lingular segment measuring 7.0 cm measuring soft tissue attenuation, with well-defined borders. Large right pleural effusion is present with loculation. Mediastinal and possible hilar adenopathy is present. Trachea and mainstem bronchi are patent. Heart size within normal limits. No axillary or subpleural adenopathy. Right Mediport catheter present in the right chest wall with distal tip at the atriocaval junction. Multiple large masses present within the right lateral ribs with bony erosion and subcutaneous edema. Advanced osseous demineralization noted. No compression fracture of the thoracic spine. IMPRESSION: Innumerable pulmonary masses, representing metastatic disease with adenopathy in the chest, loculated right pleural effusion and right rib and chest wall metastases. Close clinical follow-up suggested. Please correlate with known primary malignancy. ACT 112: Positive. There are findings on this examination that require communication between the performing entity and the patient following Patient Test Result Information Act ([place] ACT 112) guidelines. Electronically signed by Sachi Shah 09-30-2024 5:54 PM
[2024-09-30] MEDS: LACTATED RINGER'S 500 ML IV ONE (19:55)
[2024-09-30] MEDS: LACTATED RINGER'S 1,000 ML IV SCH (20:30)
[2024-09-30] MEDS: HEPARIN SOD 5,000 UNIT/0.5 ML VIAL SQ SCH (21:31)
[2024-09-30] MEDS: oxyCODONE HCL IR 5 MG TAB (IMMEDIATE RELEASE) PO PRN (21:32)
[2024-09-30] MEDS: TAMSULOSIN HCL 0.4 MG CAP PO SCH (21:32)
--- OUTSIDE RECORDS SUMMARY | 2024-10-01 02:29 | External Medical Summary | Summary of Care ---
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 Name Role Phone Zaheer Cortez MD Primary Care Provide r Reason for Visit * Reason Comments Chemotherapy Day 15, cycle 6 zira ge * Episode Based Medications (Routine) - Closed Specialty Diagnoses / Procedures Referred By Contjenna t Referred To Contact Diagnoses Cancer of sigmoid colon (HCC) Encounter for antineoplastic chemotherapy Malignant neoplasm metastatic to both lungs (HCC) Malignant neoplasm metastatic to liver (HCC) Procedures [place] INJ., ZIRABEV, 10 MG Flip Swan MD [address] [place] [address], [place] [address] Phone: tel: fax: Hematology/Oncology Treatment, [address] [address] Phone: tel: fax: Referral ID Status Reason Start Date Expiration Date Visits Re quested Visits Authorized [id number] Closed 02/26/2024 02/19/[phone] Encounter Details Date Type Department Care Team (Latest Contact Info) Description 08/13/2024 9:45 AM EDT Hem/Onc Treatment Hematology/Oncolog y Treatment, [address] [phone] [place], Chair 2 Hem Onc [address] [place] [address] Cancer of sigmoid colon (HCC)*; Encounter for antineoplastic chemotherapy; Malignant neoplasm metastatic to both lungs (HCC); Malignant neoplasm metastatic to liver (HCC) Allergies No known active allergiesdocumented as of this encounter (statuses as of 09/19/2024) Medications Allopurinol 100 MG Oral Tablet (ZYLOPRIM) Take 1 Tablet by mouth. 9 Active Cholecalciferol 50 MCG (2000 UT) Oral Capsule Take 1 Capsule by mouth in the morning. 1 Active Simvastatin 10 MG Oral Tablet (Zocor) Take 1 Tablet by mouth in the morning. Active Prochlorperazin e Maleate 10 MG Oral Tablet (Compazine)Leighann cations:Cancer of sigmoid colon (HCC),Liver metastasis Take by mouth 1 Tablet every 6 hours as needed for Nausea. 30 Tablet 2 2 Active Additional Information Patient not taking.Reported on 02/06/2024 Ondansetron HCl 8 MG Oral Tablet (Zofran)Indicat ions:Cancer of sigmoid colon (HCC),Liver metastasis Take by mouth 1 Tablet every 8 hours as needed for Nausea. 30 Tablet 2 2 Active Additional Information Patient not taking.Reported on 02/06/2024 amLODIPine Besylate 5 MG Oral Tablet (Norvasc) TAKE 1 TABLET BY MOUTH EVERY DAY 90 Tablet 3 Active Pantoprazole Sodium 40 MG Oral Tablet Delayed Release (Protonix)Indic ations:Gastroes ophageal reflux disease without esophagitis Take 1 Tablet by mouth in the morning. 90 Tablet 1 3 Active Metoprolol Succinate ER 25 MG Oral Tablet Extended Release 24 Hour (toPROL XL) Take 1 Tablet by mouth in the morning. 90 Tablet 3 4 Active Additional Information Patient not taking.Reported on 11/21/2023 Tamsulosin HCl 0.4 MG Oral Capsule (Flomax) Take 1 Capsule by mouth in the morning. As needed. Active Mupirocin 2 % External Ointment (Bactroban) 2 times a day. 4 Active Trifluridine-Ti piracil 20-8.19 MG Oral Tablet (Lonsurf)Indica tions:Cancer of sigmoid colon (HCC),Malignant neoplasm metastatic to both lungs (HCC),Malignant neoplasm metastatic to liver (HCC) Take 40 mg (2 tablets) by mouth in the morning and 40 mg (2 tablets) before bedtime. Take within 1 hour of meal. 5 days on, 9 days off. 40 Tablet 5 08/19/2024 4:06 PM EDT 4 024 Discontin ued(Refil l) documented as of this encounter (statuses as of 09/19/2024) Active Problems Problem Noted Date Diagnosed Date Anemia in stage 4 chronic kidney disease 023 Anemia due to antineoplastic chemotherapy 2022 Malignant neoplasm metastatic to both lungs 04/06 Encounter for antineoplastic chemotherapy 2021 History of colon cancer 02/02/2022 Encounter for adjustment and management of vascular access device 02/02/2022 Other iron deficiency anemias 04/13/2021 Kidney disease, chronic, stage IV (GFR 15-29 ml/ min) 02/15/2021 Overview: Per CKD protocol Cancer of sigmoid colon 08/14/2020 Malignant neoplasm metastatic to liver 0 Lung nodule 08/14/2020 documented as of this encounter (statuses as of 09/19/2024) Immunizations Name Administration Dates Next Due COVID-19 mRNA, LNP-s, No Pre serve, 2-Dose Series (Moderna) 08/30/2021,12/31/2020,11/30/2020 COVID-19 mRNA, LNP-s, No Pre serve, 2-Dose Series (Ziarco) 08/19/2021 COVID-19, LNP-s, No Preserve , Ciaran-sucrose, Ages 12+ (Ziarco) 04/19/2022 Covid-19, Mrna, Lnp-s, Pf, B ivalent, 30 Mcg, IM, 12 yrs and above (Ziarco) 01/23/2023 Seasonal Influenza Virus Vac cine, Unspecified Formulation 08/03/2020 Seasonal Influenza, High Dos e, Trivalent, PF, IM (Fluzone HD) 07/30/2024 Seasonal Influenza, Quadriva lent Hd (Fluzone Hd) 08/01/2023,09/01/2022 Seasonal Influenza, Recombin ant, RIV4, PF, (Flublock) 08/03/2020 documented as of this encounter Social History Tobacco Use Types Packs/Day Years Used Date Smoking Tobacco: Never Smokeless Tobacco: Never Alcohol Use Standard Drinks/Week Comments Yes 0 (1 standard drink = 0.6 oz pur e alcohol) drink with dinner AUDIT-C Answer Date Recorded Q1: How often do you have a drink containing alc ohol? 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 Patient tolerated well. No complaints. VAD with + blood return flushed with 10 ml NSS and Heparin 5 ml (100 units/ml). Conroy needle removed intact. Dry dressing applied. Goals: Patient will remain free from injury. Possible barriers to meeting goals: IV pump/IV tubing Stability of the patient: Moderately stable - low risk of patient condition declining or worsening Summary regarding today's goals: Met: Patient remained free from harm/injury during treatment. Patient left facility in stable condition. * Yohana Jeronimo RN - 08/13/2024 10:59 AM EDT Chair 4. Patient here for treatment following provider visit. Patient with no complaints. VAD accessed without difficulty, + blood return. flushed with 10 ml NSS and dressing applied. Chemotherapy/Immunotherapy agents: DANIEL Consent for chemotherapy drug treatment complete, dated, and signed? yes, date - 02/23/24 Treatment lab parameters met? Yes Has treatment weight changed > than 10%? No Treatment preauthorized? Yes VITALS Filed Vitals: Urine protein: POSITIVE, 100 - ok to treat per Dr. Swan Patient education completed for treatment? Yes Blood transfusion consent signed and complete? NA Return appointment scheduled? Yes Patient had provider visit today? Yes - Ok to release order and treat per provider Functional Status: Functional status at today's visit: Fully active, able to carry on all pre-disease performance without restriction The drug name, dose, infusion volume, rate and route of administration, expiration date and time, appearance and physical integrity of the drug and rate set on the pump and sequencing of drug administration (as applicable) were verified by me and second sign-in RN. Patient was assessed for symptoms or adverse side effects during treatment. Patient Education: Patient instructed on use of heat and massage functions where applicable. Patient shown how to operate the heat function of the chair and to alert nursing staff if the chair feels too warm. Patient instructed on the risk of potential mata while using the heat function. Safety and Risk for Injury Patient will remain free from injury. Ensure appropriate safety devices are available. Provide and maintain safe environment. documented in this encounter Plan of Treatment Upcoming Encounters Date Type Department Care Team (Late st Contact Info) Description 10/16/2024 9:15 AM EST Office Visit Hematology/Oncology [facility] [place] [place] [phone] Flip Swan MD [address] [facility] [place] [id number] 10/16/2024 9:45 AM EST Nurse Only Hematology/Oncology Treatment, [place] [address] [facility] [place] [phone] [place], Chair 9 Hem Onc [facility] [address] [facility] [place] [id number] Health Maintenance Due Date Last Done Comments Pneumococcal Vaccine: 65+ Years (1 of 2 - PCV) 1957 Depression Screening 1963 Hepatitis C Screening 1969 DTap/Tdap Vaccines (1 - Tdap) 1970 Zoster Vaccines (1 of 2) 1970 Cologuard 02/12/1996 Fecal Occult Blood Test 02/12/1996 Sigmoidoscopy 02/12/1996 Albumin/Creatinine Ratio 01/29/2022 01/29/2021, 11/07 PTH 01/29/2022 01/29/2021 COVID-19 Vaccine ( season) 2024 01/23/2023, 04/19/2022, 08/30/2021, Additional history exists Nephrology Referral 02/05/2025 02/06/2024 GFR 03/17/2025 09/17/2024, 08/07, 08/12/2024, Additional history exists Hgb 09/17/2025 09/17/2024, 08/07, 08/12/2024, Additional history exists Phosphate 09/17/2025 09/17/2024, 04/0 04/2021, 01/29/2021, Additional history exists Lipid Panel 02/14/2028 02/13/2023, 08/06, 08/20/2020 Colonoscopy 08/07/2030 08/07/2020, 08/07/2020 Colorectal Cancer Screening 08/07/2030 Influenza Vaccine (FLU shot) Completed , 08/01/2023, 09/01/2022, Additional history exists HPV (Gardasil) Vaccine Aged Out No lo nger eligible based on patient's age to complete this topic Hepatitis B Vaccine Aged Out No longe r eligible based on patient's age to complete this topic MENINGOCOCCAL (MENACTRA/MENVEO) Aged Out No longer eligible based on patient's age to complete this topic documented as of this encounter Medical Devices Implanted Type Area Fur Farmer Device Identifier Shelf Expiration Date Model / Serial / Lot Port Power Mri W/8fr Cath - [id number] Implanted:Qt y: 1 on 08/25/2020 by Humberto Barron MD at OR [facility] Left: Subclavian CR BARD : PERIPHERAL VASCULAR 12/06/2021 [id number] / / [id number] Port Implant W/8f Poly Cath - [id number] Implanted:Qt y: 1 on 06/15/2022 by Humberto Shabazz DO at OR [facility] Right: Chest CR BARD : PERIPHERAL VASCULAR [id number] 07/06/2023 [id number] / / [id number] documented as of this encounter Visit Diagnoses Diagnosis Cancer of sigmoid colon (HCC)- Primary Malignant neoplasm of sigmoid colon Encounter for antineoplastic chemotherapy Malignant neoplasm metastatic to both lungs (HCC) Malignant neoplasm metastatic to liver (HCC) Secondary malignant neoplasm of liver documented in this encounter Administered Medications Inactive Administered Medications - up to 3 most recent administrations Medication Order MAR Action Action Date Dose Rate Site bevaCIZumab-bvzr (Zirabev) 400 mg in NSS 100 mL infusion 400 mg (rounded from 393.5 mg = 5 mg/kg 78.7 kg Treatment plan Recorded weight), IV Piggyback, ONCE, 1 dose, On Mon08/13/24 at 1145, Administer over 30 MinutesIndications:Cancer of sigmoid colon (HCC),Encounter for antineoplastic chemotherapy,Malignant neoplasm metastatic to both lungs (HCC),Malignant neoplasm metastatic to liver (HCC) Start Infusion 08/13/2024 10:30 AM EDT 400 mg 210 mL/hr hEParin 100 UNIT/ML Lock Flush inj 500 Units 500 Units (5 mL), IV Lock, PRN Other, IV Flush, Starting on Mon08/13/24 at 1005, Until Mon08/13/24 at 2030, For 24 hours, Do not flush if lock, PICC, or central line not in place; IV infusing or unable to flush.Indications:Cancer of sigmoid colon (HCC),Encounter for antineoplastic chemotherapy,Malignant neoplasm metastatic to both lungs (HCC),Malignant neoplasm metastatic to liver (HCC) Given 08/13/2024 11:07 AM EDT 500 Units NSS infusion Intravenous, at 50 mL/hr, PRN, Starting on Mon08/13/24 at 1115, Until Mon08/13/24 at 2030, Maintenance lineIndications:Cancer of sigmoid colon (HCC),Encounter for antineoplastic chemotherapy,Malignant neoplasm metastatic to both lungs (HCC),Malignant neoplasm metastatic to liver (HCC) Start Infusion 08/13/2024 10:09 AM EDT 50 mL/hr sodium chloride 0.9 % flush central line 10 mL 10 mL, IV Push, PRN Other, IV Flush, Starting on Mon08/13/24 at 1005, Until Mon08/13/24 at 2030, For 24 hours, Do not flush if lock, PICC, or central line not in place; IV infusing or unable to flush.Indications:Cancer of sigmoid colon (HCC),Encounter for antineoplastic chemotherapy,Malignant neoplasm metastatic to both lungs (HCC),Malignant neoplasm metastatic to liver (HCC) Given 08/13/2024 11:07 AM EDT 10 mL documented in this encounter Care Teams Marine Erector Relationship Specialty Start Date End Date Zaheer Cortez MD [address] [place] [address] PCP - General Family Medicine 08/10/20 documented as of this encounter
[2024-10-01 06:46] LABS: Hematocrit (blood only) 27.8 % (42.0-52.0); Hemoglobin 9.2 g/dl (14.0-18.0); Mean Corpuscular Hemoglobin 30.5 pg (25.0-34.0); Mean Corpuscular Hgb Conc 33.1 g/dL (32.0-36.0); Mean Corpuscular Volume 92.1 fL (80.0-100.0); Mean Platelet Volume 9.8 fL (9.4-12.4); Platelet Count 231 K/uL (130-400); RDW Coefficient of Variation 15.8 % (11.5-14.5); RDW Standard Deviation 52.9 fL (36.4-46.3); Red Blood Count 3.02 M/uL (4.70-6.10); White Blood Count 6.25 K/ul (4.8-10.8)
[2024-10-01 07:16] LABS: BUN Creatinine Ratio 16.7 (10-20); Calcium 8.7 mg/dl (8.6-10.3); Creatinine Clr Calc Pharmacy 21.6 ml/min
[2024-10-01] MEDS: PANTOprazole 40 MG TAB PO SCH (07:28)
[2024-10-01] MEDS: amLODIPine BESYLATE 5 MG TAB PO SCH (07:28)
[2024-10-01] MEDS: METOPROLOL SUCC 25MG EXT REL TAB PO SCH (07:28)
--- NOTE | 2024-10-01 07:43 | Hospitalist Progress Note ---
Date of Service October 01, 2024 Assessment & Plan (1) Adenocarcinoma of sigmoid colon: (2) Encephalopathy: (3) Acute confusion: (4) Acute on chronic renal insufficiency: (5) Colon cancer metastasized to liver: (6) Colon cancer metastasized to lung: (7) GERD (gastroesophageal reflux disease): Plan 1) Encephalopathy Worsening confusion and dizziness x 1 month, no h/o dementia; possibly 2/2 BEN w/ volume contraction - UA without signs of infection - CXR moderate right pleural effusion (similar to prior PET/CT), re- demonstration of numerous pulmonary metastases, pulmonary vascular congestion - Head CT no acute intracranial findings, no intracranial metastases identified - CT-AP right lateral rib and chest wall soft tissue masses, osseous erosions, large right pleural effusion pulmonary masses, postsurgical changes of the liver, multiple hepatic masses, no ascites or adenopathy in abdomen - CT chest with innumerable pulmonary masses representing metastatic disease and adenopathy in the chest, loculated right pleural effusion and right rib and ch est wall metastasis. - EKG appearing to be sinus tachycardia rate around 105 - TSH 1.492; Ammonia, 40 (18-72 normal range) - no leukocytosis, procalcitonin, 7.48 (elevated) - Blood Cx ordered and pending 2) BEN (acute kidney injury) - Baseline Cr, 2; baseline BUN, 20; likely prerenal - Cr, 2.82 <-- 3.13, BUN 47 <-- 55 - UA without signs of infection, Given 500 mL fluids (NSS), Bladder scan as needed - Hold nephrotoxic agents to improving renal function- allopurinol - Continue to promote oral hydration + IV fluid resuscitation with 500mL bolus LR then additional 1L infusion 3) Adenocarcinoma of sigmoid colon Initial diagnosis colon cancer 08/07/2020; missed appointment today (09/30) - Follows with Dr. Swan, [facility] oncology (consider consult if required) -Course: Received 6 cycles of FOLFIRI (08/2020-11/2020), FOLFOX with dose reduction oxaliplatin (04/2021-08/2022), Lonsurf 40 mg twice daily every 28 days, bevacizumab 5 mg/kg every 2 weeks-> November 2023 adjusted to Regorafenib which was ultimately discontinued; receiving palliative radiation treatment - Current regimen (09/17/2024) - follows with radiation/oncology, discontinued Lonsurf and bevacizumab - With identified metastasis to lung, liver, skin - Tumor resection of colon 12/23/2020 - Affected aspect of liver resected 03/2021 - Patient went to get his radiation therapy today 4) Hypertension Stable on admission - Amlodipine 5 mg every morning, metoprolol succinate 25 mg daily 5) CKD (chronic kidney disease) stage 4, GFR 15-29 ml/min - Hx of stage IV CKD, baseline Cr ~2, follows w/ Dr. Carl Vicente - Secondary to HTN and multiple bilateral renal cysts per most recent nephrology note (02/06/2024) - Evidence of BEN on admission, see #2 - Avoid NSAIDs, Renally dose medications, AM BMP - UA without signs of infection, but with evidence of proteinuria 6) Anemia - Hgb, 9.2 <-- 9.9 Plan HLD- Simvastatin 20mg daily BPH- Tamsulosin 0.4 mg nightly Dispo: Med-Surg Diet: Regular VTE Prophylaxis: Heparin Code: Conditional - Cardiac intervention OK Admission and Anticipated Discharge Date Admission Date: September 30, 2024 Supervising Physician Co-Signing Physician Notes ATTESTATION I also saw the patient and confirmed miller portions of the history and exam. I agree with the impression and plan in the resident documentation, and as summarized below. When I saw the patient this afternoon at about 2 PM, he was seated in the bed. He had completed RT earlier today. Generally feeling at his baseline. He did not feel quite right yesterday, more non specific symptoms - maybe a little confusion, but more just not feeling right. EXAM 146/83, 98, 18, 96% RA Alert and oriented. NAD. Talks in full sentences without pause. CV RRR Lung sounds decreased right, especially right lower; left clear ABD soft and non tender Ext without edema DATA Labs No WBC HgB 9.2 BUN 47/Cr 2.82 AP 180, AST 64, ALT 26 Imaging Micro Blood cultures drawn today are pending IMPRESSION & PLAN Metastatic colon CA metabolic encephalopathy BEN Overall, looks good today. No overt confusion, but some change yesterday which is improved at present No signs of localizing infection. Note elevated procalcitonin yesterday upon presentation, antibiotics held upon admission. May be orally falsely elevated - to a point - given his renal function. Monitor closely, low suspicion to add antibiotics; Discussed risk benefit, and potential side effects of antibiotics (c-diff, GI side effects). 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 Patient's "first radiation treatment for his cancer was on Monday, followed by a second appt on. Patient had one session last week on Monday. Patient's partner/ is the physicist, Aureliano Reese, that works on the radiation machine and it was down. The patient was supposed to get through some of the radiation sessions by Monday before , but there have been problems with the machine. The patient denies all symptoms today with the exception of right rib pain, r. flank pain. Review of Systems Respiratory: no cough, no chest congestion and no dyspnea Gastrointestinal: + abdominal pain (RUQ pain, r. flank enid n also); no nausea, no vomiting, no change in bowel habits, no constipation and no diarrhea/loose stools Genitourinary: no dysuria or no urinary frequency Neurologic: no tingling, no numbness, no headache(s) and no confusion (pt does not feel confused but is having trouble w/ short term recall) Psychiatric: no depression, no irritability, no anxiety and no difficulty concentrating Physical Exam Constitutional: WD/WN, vitals as above Respiratory: normal respiratory effort, lungs clear to auscultation Cardiovascular: RRR, no murmur, no edema Gastrointestinal (Abdomen): Inspection/Auscultation: abdomen normal to inspection and normal bowel sounds; abdomen not distended Percussion/Palpation: + abdomen tender and abdomen soft Psychiatric: A+Ox3, euthymic affect Results & Data Results & Data Vital Signs (Past 12 Hours) Vital Signs Temp Pulse Pulse Resp BP BP Pulse Ox 10/01/24 07:12 36.7 C 98 H 18 146/83 H 96 09/30/24 20:50 36.9 C 94 H 16 122/75 94 09/30/24 20:50 94 09/30/24 20:00 109 H 22 137/81 96 09/30/24 19:42 117 H 23 95 09/30/24 19:30 94 H 23 115/77 95 O2 Del Method 10/01/24 07:12 Room Air 09/30/24 20:50 Room Air 09/30/24 20:50 Room Air 09/30/24 20:00 Room Air 09/30/24 19:42 Room Air 09/30/24 19:30 Room Air Resident Activity Tracking Resident Involvement: Resident Care Provided Care Provided: Adult Hospital Medicine
[2024-10-01] MEDS ORDERED: Nursing to Pharmacy Communication SCH (07:45)
[2024-10-01] MEDS ORDERED: SIMVASTATIN 20 MG TAB PO SCH (09:00)
[2024-10-01] MEDS: oxyCODONE HCL IR 5 MG TAB (IMMEDIATE RELEASE) PO SCH (11:12)
[2024-10-01] MEDS: SODIUM CHLORIDE 0.9% 1,000 ML IV SCH (15:24)
--- NOTE | 2024-10-01 18:20 | Electrocardiogram Report ---
Test Reason : Blood Pressure : */* mmHG Vent. Rate : 104 BPM Atrial Rate : 104 BPM P-R Int : 146 ms QRS Dur : 76 ms QT Int : 318 ms P-R-T Axes : 10 -17 45 degrees QTcB Int : 418 ms Sinus tachycardia with Blocked Premature atrial complexes Minimal voltage criteria for LVH, may be normal variant Inferior infarct , age undetermined Confirmed by Herrera Yoo ([id number]) on 10/01/2024 6:19:46 PM Referred By: REFERRED SELF Confirmed By: Herrera Yoo
[2024-10-01] MEDS: SIMVASTATIN 20 MG TAB PO SCH (19:50)
--- NOTE | 2024-10-02 07:49 | Hospitalist Progress Note ---
Date of Service October 02, 2024 Assessment & Plan (1) Adenocarcinoma of sigmoid colon: (2) Encephalopathy: (3) Acute confusion: (4) Acute on chronic renal insufficiency: (5) Colon cancer metastasized to liver: (6) Colon cancer metastasized to lung: (7) GERD (gastroesophageal reflux disease): Plan 1) Encephalopathy Worsening confusion and dizziness x 1 month, no h/o dementia; possibly 2/2 BEN w/ volume contraction - UA without signs of infection - CXR moderate right pleural effusion (similar to prior PET/CT), re- demonstration of numerous pulmonary metastases, pulmonary vascular congestion - Head CT no acute intracranial findings, no intracranial metastases identified - CT-AP right lateral rib and chest wall soft tissue masses, osseous erosions, large right pleural effusion pulmonary masses, postsurgical changes of the liver, multiple hepatic masses, no ascites or adenopathy in abdomen - CT chest with innumerable pulmonary masses representing metastatic disease and adenopathy in the chest, loculated right pleural effusion and right rib and ch est wall metastasis. - EKG appearing to be sinus tachycardia rate around 105 - TSH 1.492; Ammonia, 40 (18-72 normal range) - no leukocytosis, procalcitonin, 7.48 (elevated) - Blood Cx ordered and pending - 1st culture, neg after 24 hrs - 2nd culture, pending 2) BEN (acute kidney injury) - Baseline Cr, 2; baseline BUN, 20; likely prerenal - Cr, 2.35 <-- 2.82 <-- 3.13, BUN 35 <-- 47 <-- 55 - UA without signs of infection, Given 500 mL fluids (NSS), Bladder scan as needed - Hold nephrotoxic agents to improving renal function- allopurinol - Continue to promote oral hydration + IV fluid resuscitation with 500mL bolus LR then additional 1L infusion 3) Adenocarcinoma of sigmoid colon Initial diagnosis colon cancer 08/07/2020; missed appointment today (09/30) - Follows with Dr. Swan, [facility] oncology (consider consult if required) -Course: Received 6 cycles of FOLFIRI (08/2020-11/2020), FOLFOX with dose reduction oxaliplatin (04/2021-08/2022), Lonsurf 40 mg twice daily every 28 days, bevacizumab 5 mg/kg every 2 weeks-> November 2023 adjusted to Regorafenib which was ultimately discontinued; receiving palliative radiation treatment - Current regimen (09/17/2024) - follows with radiation/oncology, discontinued Lonsurf and bevacizumab - With identified metastasis to lung, liver, skin - Tumor resection of colon 12/23/2020 - Affected aspect of liver resected 03/2021 - Patient went to get his radiation therapy today 4) Hypertension Stable on admission - Amlodipine 5 mg every morning, metoprolol succinate 25 mg daily 5) CKD (chronic kidney disease) stage 4, GFR 15-29 ml/min - Hx of stage IV CKD, baseline Cr ~2, follows w/ Dr. Carl Vicente - Secondary to HTN and multiple bilateral renal cysts per most recent nephrology note (02/06/2024) - Evidence of BEN on admission, see #2 - Avoid NSAIDs, Renally dose medications, AM BMP - UA without signs of infection, but with evidence of proteinuria 6) Anemia - Hgb, 9.4 <-- 9.9 Plan HLD- Simvastatin 20mg daily BPH- Tamsulosin 0.4 mg nightly Dispo: Med-Surg Diet: Regular VTE Prophylaxis: Heparin Code: Conditional - Cardiac intervention OK Admission and Anticipated Discharge Date Admission Date: September 30, 2024 Supervising Physician Co-Signing Physician Notes ATTESTATION I also saw the patient and confirmed miller portions of the history and exam. I agree with the impression and plan in the resident documentation, and as summarized below. Today seems a little confused - maybe this was present yesterday, although I did not have as much collaborative information form his to appreciate the confusion. No fever; no chills; no pain. EXAM 124/77, 104, 16, 95% Alert and oriented. NAD. Talks in full sentences without pause. CV RRR - rate upon my exam 72 Lung sounds again decreased right, especially right lower; left clear ABD soft and non tender Ext without edema DATA Labs WBC 7.5 HgB 9.4 BUN 35/Cr 2.35 Imaging Micro Blood cultures drawn yesterday 1 no grwoth, 1 pending IMPRESSION & PLAN Metastatic colon CA metabolic encephalopathy BEN Overall, by the numbers, improvement in renal function; other than mild tachycardia, hemodynamics are good Confusion seems slightly more today than yesterday, although there may be some variability hour to hour Again no signs of localizing infection. Await cultures Continue IVF Discussed MRI Brain to exclude metastatic disease, although he declined today. Additional per resident documentation Subjective Patient is a 74 yo M w/ a PMHx of adenocarcinoma of colon (w/ METS to skin, lungs, chest wall, liver), GERD, CKD-stage 4, HTN, HLD, chronic gout, who presented to the [facility] ED for confusion, encephalopathy. 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 Patient's "first radiation treatment for his cancer was on Monday, followed by a second treatment session on Monday. Patient's partner/ is the physicist, Aureliano Reese, that works on the radiation machine and it was down. The patient was scheduled for another radiation treatment session today. The patient denies all symptoms today with the exception of right rib pain, r. flank pain still. Specifically denies any respiratory symptoms, GI symptoms, urinary symptoms. Review of Systems Respiratory: no cough, no chest congestion and no dyspnea Gastrointestinal: + abdominal pain (RUQ pain, r. flank enid n also); no nausea, no vomiting, no change in bowel habits, no constipation and no diarrhea/loose stools Genitourinary: no dysuria or no urinary frequency Neurologic: no tingling, no numbness, no headache(s) and no confusion (pt does not feel confused but is having trouble w/ short term recall) Psychiatric: no depression, no irritability, no anxiety and no difficulty concentrating patient denies all these symptoms himself but collateral history would seem to suggest otherwise Physical Exam Constitutional: WD/WN, vitals as above Respiratory: normal respiratory effort, lungs clear to auscultation Cardiovascular: RRR, no murmur, no edema Gastrointestinal (Abdomen): Inspection/Auscultation: abdomen normal to inspection and normal bowel sounds; abdomen not distended Percussion/Palpation: + abdomen tender and abdomen soft Psychiatric: A+Ox3, euthymic affect Results & Data Results & Data Vital Signs (Past 12 Hours) Vital Signs Temp Pulse Resp BP Pulse Ox O2 Del Method 10/01/24 20:43 37.2 C 107 H 16 149/77 H 94 Room Air
[2024-10-02 10:45] LABS: BUN Creatinine Ratio 14.9 (10-20); Calcium 8.5 mg/dl (8.6-10.3); Creatinine Clr Calc Pharmacy 25.9 ml/min; Hematocrit (blood only) 28.7 % (42.0-52.0); Hemoglobin 9.4 g/dl (14.0-18.0); Mean Corpuscular Hemoglobin 30.4 pg (25.0-34.0); Mean Corpuscular Hgb Conc 32.8 g/dL (32.0-36.0); Mean Corpuscular Volume 92.9 fL (80.0-100.0); Mean Platelet Volume 10.6 fL (9.4-12.4); Platelet Count 262 K/uL (130-400); Potassium 3.7 mmol/L (3.5-5.1); RDW Coefficient of Variation 15.6 % (11.5-14.5); RDW Standard Deviation 52.5 fL (36.4-46.3); Red Blood Count 3.09 M/uL (4.70-6.10)
[2024-10-02] MEDS: HEPARIN 100 UNIT/ML 5ML FLUSH FLUSH PRN (19:50)
[2024-10-03 06:35] LABS: Hemoglobin 8.9 g/dl (14.0-18.0); Mean Corpuscular Hemoglobin 30.8 pg (25.0-34.0); Mean Corpuscular Volume 93.4 fL (80.0-100.0); Mean Platelet Volume 10.6 fL (9.4-12.4); Platelet Count 233 K/uL (130-400); RDW Coefficient of Variation 15.8 % (11.5-14.5); RDW Standard Deviation 53.9 fL (36.4-46.3); Red Blood Count 2.89 M/uL (4.70-6.10)
[2024-10-03 06:39] LABS: BUN Creatinine Ratio 14.9 (10-20); Calcium 8.5 mg/dl (8.6-10.3); Creatinine Clr Calc Pharmacy 29.2 ml/min; Potassium 3.8 mmol/L (3.5-5.1)
--- NOTE | 2024-10-03 07:20 | Discharge Summary ---
Date of Service October 03, 2024 Admission HPI Per Admitting Provider 74-year-old male presenting for onset dizziness x 1 month. ED course: CBC RBC 3.24, H&H 10.9/30; PT/INR WNL; CMP Na 133, carbon dioxide 20, anion gap 13, BUN 55, creatinine 3.13, glucose 165, AST 64, alk phos 180, albumin 2.9, globulin 4.6; calcium 8.5, magnesium 2.6; procalcitonin 7.48; UA 2+ protein, ketones, 2+ blood, no presence of infection; CXR moderate right pleural effusion (similar to prior PET/CT), redemonstration of numerous pulmonary metastases, pulmonary vascular congestion; head CT without acute intracranial findings or intracranial metastases; pending CTAP and CT chest read; EKG appearing to be sinus tach rate around 105.; Provided with NSS 500 mL in ED. Patient is a very pleasant 74-year-old male PMHx stage IV colon cancer with mets to liver and lungs, GERD, CKD stage IV, HTN, and HLD presenting for confusion and dizziness x 1 month. Patient's is present in room at time of visit and helps provide history. Patient notes that approximately 1 to 2 months ago he started to have slight off-balance feeling when standing too quickly, which resolved when sitting. Additionally, today (09/30) he was to have radiation appointment. States that he called his to tell him that he took 2 oxycodone and that he was getting ready to head to his appointment. However, his states that the patient never actually went to his appointment. Mr. Crain states that he made the conscious decision not to go because he did not like the radiation treatment the day prior to. States that he does not really feel confused, and that this was the first time that he missed an appointment. Denies out right abdominal pain, just states that he is having some discomfort throughout his abdomen stating that it is "disconnected". Has had recent decrease of appetite as noted per the patient's . Has shortness of breath with exertion only and this has been ongoing for a year. Denying fever/chills, chest pain, new shortness of breath, abdominal pain, N/V/D/C, numbness/tingling, or LUTS. Did not take a.m. medications. Most recent chemotherapy was approximately 2 weeks ago. Please see Dr. Garica's attestation for adjustments/additions to treatment plan. Admission Exam Per Admitting Provider General: No acute distress Skin: Warm and dry, R flank w/ lesion that is skin colored and dry Head: Normocephalic, atraumatic Eyes: PERRL, conjunctivae clear, sclera non-icteric ENT: External ear and ear canal without swelling; nose atraumatic; good dentition Neck: Supple, no LAD Cardio: Tachycardia, regular rhythm, no M/G/R, S1 and S2 normal Resp: No respiratory distress, Lungs CTA in all lobes bilaterally, no wheezes, rales, or rhonchi; port left chest Abdomen: Soft, symmetric, nontender; surgical scars noted; no distention; No masses or hepatosplenomegaly MSK: No deformities, pulses palpable and equal; no edema. Neuro: Awake, alert; Sensation intact bilaterally; CN intact Psych: Appropriate mood and affect; good judgement and insight. Principal Diagnosis altered mental status, BEN Discharge Exam Constitutional WD/WN, vitals as above Respiratory normal respiratory effort, lungs clear to auscultation Cardiovascular RRR, no murmur, no edema Gastrointestinal (Abdomen) Inspection/Auscultation: abdomen normal to inspection and normal bowel sounds; abdomen not distended Percussion/Palpation: + abdomen tender and abdomen soft Psychiatric A+Ox3, euthymic affect Discharge Data Allergies Allergy/AdvReac Type Severity Reaction Status Date / Time No Known Drug Allergies Allergy Verified 09/30/24 16:12 Consultations 09/30/24 18:01 ED Decision to Admit Stat Ordered Studies 09/30/24 14:39 CT head/brain wo con Stat 09/30/24 16:57 CT abd pelvis wo con Stat CT chest diagnostic wo con Stat Hospital Course (1) Adenocarcinoma of sigmoid colon: (2) Encephalopathy: (3) Acute confusion: (4) Acute on chronic renal insufficiency: (5) Colon cancer metastasized to liver: (6) Colon cancer metastasized to lung: (7) GERD (gastroesophageal reflux disease): Plan 1) Encephalopathy Worsening confusion and dizziness x 1 month, no h/o dementia; possibly 2/2 BEN w/ volume contraction - UA without signs of infection - CXR moderate right pleural effusion (similar to prior PET/CT), re- demonstration of numerous pulmonary metastases, pulmonary vascular congestion - Head CT no acute intracranial findings, no intracranial metastases identified - CT-AP right lateral rib and chest wall soft tissue masses, osseous erosions, large right pleural effusion pulmonary masses, postsurgical changes of the l iver, multiple hepatic masses, no ascites or adenopathy in abdomen - CT chest with innumerable pulmonary masses representing metastatic disease and adenopathy in the chest, loculated right pleural effusion and right rib and chest wall metastasis. - EKG appearing to be sinus tachycardia rate around 105 - TSH 1.492; Ammonia, 40 (18-72 normal range) - no leukocytosis, procalcitonin, 7.48 (elevated) - Blood Cx ordered and pending - 1st culture, neg after 48 hrs - 2nd culture, neg after 24 hrs - Patient is declining to have an MRI-Brain done during hospital stay to assess for metastases to brain 2) BEN (acute kidney injury) - Baseline Cr, 2; baseline BUN, 20; likely prerenal - Cr, 2.08 <-- 2.35 <-- | <-- 3.13, BUN 31 <-- 35 <-- | <-- 55 -----> improving each day - UA without signs of infection, Given 500 mL fluids (NSS), Bladder scan as needed - Hold nephrotoxic agents to improving renal function- allopurinol - Continue to promote oral hydration - F/U as outpt to confirm that kidney function returned to normal w/ BMP 3) Adenocarcinoma of sigmoid colon Initial diagnosis colon cancer 08/07/2020; missed appointment for radiation therapy (09/30/24) - Follows with Dr. Swan, [facility] oncology (consider consult if required) -Course: Received 6 cycles of FOLFIRI (08/2020-11/2020), FOLFOX with dose reduction oxaliplatin (04/2021-08/2022), Lonsurf 40 mg twice daily every 28 days, bevacizumab 5 mg/kg every 2 weeks-> November 2023 adjusted to Regorafenib which was ultimately discontinued; receiving palliative radiation treatment - Current regimen (09/17/2024) - follows with radiation/oncology, discontinued Lonsurf and bevacizumab - With identified metastasis to lung, liver, skin - Tumor resection of colon 12/23/2020 - Affected aspect of liver resected 03/2021 - Patient went to get his radiation therapy on Monday and Wednesday during hospital stay 4) Hypertension Stable on admission - Amlodipine 5 mg every morning, metoprolol succinate 25 mg daily 5) CKD (chronic kidney disease) stage 4, GFR 15-29 ml/min - Hx of stage IV CKD, baseline Cr ~2, follows w/ Dr. Carl Vicente - Secondary to HTN and multiple bilateral renal cysts per most recent nephrology note (02/06/2024) - Evidence of BEN on admission, see #2 - Avoid NSAIDs, Renally dose medications, AM BMP - UA without signs of infection, but with evidence of proteinuria 6) Anemia - Hgb, 8.9 <-- 9.4 <-- 9.9 Plan HLD- Simvastatin 20mg daily BPH- Tamsulosin 0.4 mg nightly Total Time Total Time Spent Total Time Spent (In Minutes): I spent 45 minutes talking to the patient, talk to family, reviewing records, seeing the patient, and documenting Discharge Plan Discharge Items Patient Disposition: Home - Self-Care Reason For Visit: ENCEPHALOPATHY, WEAKNESS Discharge Diagnosis: altered mental status, BEN Activity: Resume your previous activity Non-emergency contact: Primary Care Provider and Oncologist Call non-emergency contact if: you have any medication questions and your symptoms worsen Follow-up/Referrals: Zaheer Cortez MD [Primary Care Provider] - Diet: Regular Addtl Attending Provider Instructions: You were admitted to the hospital for confusion, altered mental status in the context of recent re-initiation of radiation therapy for metastasized colon cancer. You were treated with IV fluids, home meds. A discharge summary will be sent to your primary care physician to ensure continuity of care. Please bring this discharge summary with you to your next office appointment so that your provider can review it at that time. Follow-up appointments: We have requested a follow-up appointment with your primary care physician within one week of discharge. Please call their office if you do not hear from them. Keep all your follow-up appointments as already scheduled, including those with your oncologist. If you cannot make an appointment, notify your provider. Medications: Your medication list has been reviewed and reconciled upon discharge to ensure accuracy and continuity of care. An updated list of all your medications is included with your hospital discharge paperwork. Please review this list closely, and make note of any changes. Take your medications as instructed; do not skip a dose of your medicines. Make sure all of your doctors know every medicine you are taking (including lqyw-gif-qnoypyw medicines, vitamins, and supplements). Call your primary care provider before taking any new medicines (including [id number]-frldngs medicines, vitamins, and supplements), because some of these may interact with your current medications, or may make your symptoms worse. Tell your primary care provider if you cannot afford your medications. CONTACT YOUR PRIMARY CARE PROVIDER if you experience any of the following: increasing confusion, increased loss of weight/appetite, problems w/ short term memory Difficulty following your treatment plan, or difficulty taking medications CALL 911 OR GO TO THE EMERGENCY DEPARTMENT if you experience any of the following: Sudden, severe abdominal pain or nausea/vomiting Severe chest pain, or chest pain that radiates (moves) to your jaw or arm Sudden, severe shortness of breath or difficulty breathing Thank you for allowing us to participate in your care Pending Studies at Discharge: Yes Studies:: 1 of 2 blood cultures, neg at 24 hrs, 48 hrs pending Stand-Alone Forms: My [facility], Smoking Cessation Medications and DC Order Prescriptions: Continued metoprolol succinate 25 mg tablet extended release 24 hr 25 mg PO DAILY oxycodone 5 mg tablet 5 mg PO Q4H PRN (Reason: pain) Qty: 60 0RF Rx Instructions: 1 or 2 every 4-6 hours as needed pain allopurinol 100 mg tablet 100 mg PO QAM Qty: 90 3RF amlodipine 5 mg tablet 5 mg PO QAM Qty: 90 3RF pantoprazole 40 mg tablet,delayed release (DR/EC) 40 mg PO QAM Qty: 90 3RF simvastatin 10 mg tablet 20 mg PO DAILY Qty: 180 3RF tamsulosin [Flomax] 0.4 mg capsule 0.4 mg PO HS Qty: 90 3RF cholecalciferol (vitamin D3) [Vitamin D3] 25 mcg (1,000 unit) capsule 125 mcg PO QAM Discharge Orders: Discharge Order (Routine); Ordered 10/03/24 Ordered By: Herrera Infante Admission Data Admit Date/Time: 09/30/24 18:53 Attending Provider: Jl Newton Admit Provider: Randal Garcia Primary Care Provider: Zaheer Cortez. Other Providers: Randal Garcia Supervising Physician Co-Signing Physician Notes ATTESTATION I also saw the patient and confirmed miller portions of the history and exam. I agree with the impression and plan in the resident documentation, and as summarized below. Still sense some mild confusion, but he covers well. Does little bit of apathy, which I am not sure if it represents confusion or an effort to downplay situation. Discussed my recommendation for a brain MRI to exclude metastatic disease, though similar to yesterday, the patient defers. All of this discussed with the patient's . he is in agreement with the confusion; supportive of the patient's decision to defer MRI; he believes he would be able to keep a close eye on him at home. EXAM 128/76, 81, 16, 36.5, 94% room air Alert and oriented. NAD. Talks in full sentences without pause. CV RRR Lung sounds again slightly decreased right, especially right lower; left is clear ABD soft and non tender Ext without edema DATA Labs WBC 7.7 HgB 8.9 BUN 31/Cr 2.08 Imaging Micro Blood cultures drawn upon admission show no growth at 48 hours IMPRESSION & PLAN Metastatic colon CA metabolic encephalopathy BEN CKD Stage 4 HTN blood cultures are negative at 48 hours, no other signs or symptoms suggest infection patient's confusion is improved, although in discussing with his , I do not believe the patient is at his baseline recommend MRI brain with contrast to exclude metastatic disease, although patient defers at this time if not due to metastatic disease, confusion could simply be multifactorial including metabolic abnormalities, anemia, and chronic illness he will consider MRI as an outpatient; this was relayed to his medical oncologist he will have radiation therapy on Monday; recommend BMP and CBC in follow-up Additional per resident documentation Resident Activity Tracking Resident Involvement: Resident Care Provided Care Provided: [facility]
[2024-10-03 07:29] VITALS: TEMP 97.7
[2024-10-03] MEDS ORDERED: POLYETHYLENE (MIRALAX) 17 GM PACK PO PRN (09:36)
[2024-10-03 15:47] VITALS: BP 128/76; PULSE 81; RESP 16; O2SAT 94
== END 2024-10-03 18:50 | disposition home or self-care (01) | DRG 849 ==
LOC: ED 13:43 → 3W 18:53 → SUATTDRO 18:53 → 3W 20:20